=== PATIENT | female | born 1935 | race Caucasian/White ===

== ENCOUNTER 2016-10-01 13:19 | Inpatient (IN) | payer MEDICARE, OTHER ==
[~2016-10-01] VITALS: Ht 157.5 cm; Wt 55.3 kg
[2016-10-01 09:00] VITALS: BP 113/74
--- NOTE | 2016-10-01 13:30 | NUR ---
PATIENT ADMITTED TO [facility] UNDER THE SERVICES OF DR. TELLEZ. PATIENT LIVES WITH HER DAUGHTER AND APPARENTLY SHE HAS BECOME GRANDIOSE IN MARCIA DELUSIONS RELATED TO HER MANIC EPISODE OF BIPOLAR. PATIENT IS HYPERVERBAL ON ASSESSMENT, CURSING AND TELLING ME BITS OF HER LIFE. SHE HAS MENTIONED FLYING ON A SPACE SHIP AND TRAVELLING RECENTLY AND SHE SAYS "I DON'T KNOW HOW TO DRIVE IT, BUT I DO IT" PATIENT ALSO MENTIONS SEEING A MONKEY AND THAT IT IS UP IN THE TREE. DAUGHTER SAYS SHE IS MOSTLY ORIENTED TO HERSELF ONLY. PATIENT HAS HAD BILATERAL HIP REPLACEMENTS AND SHE IS AFRAID TO STAND AND AMBULATE, SHE DOES STAND AND TRANSFER WITH ASSIST, OTHERWISE SHE IS IN A W/C AND AT TIMES CAN SELF PROPEL, BUT DAUGHTER SAYS SHE USUALLY DOES NOT. SHE HAS A HX OF P.E., PATIENT HAS EDEMA TO BILATERAL FEET AND ANKLES AND THEY ARE A PINKISH PURPLE COLOR, SHE HAS A HX OF COPD AND SHE WEARS OXYGEN SOMETIMES IF SHE WILL KEEP IT ON, ON ADMISSION SPO2 IS 88%, DID LET RT KNOW AND THEY BROUGHT HER OXYGEN, SHE IS ON 2 L/M PER N/C. PATIENT IS INCONTINENT AT NIGHT ALL THE TIME, BUT DURING THE DAY SHE WILL ASK FOR ASSIST TO GO TO THE BATHROOM, SHE HAS A SKIN TEAR TO LEFT FOREARM AND THREE BRUISES/RED CHENEY ON HER RIGHT FOREARM. PATIENT HAS HER OWN W/C, SHE HAS UPPER AND LOWER DENTURES THAT DAUGHTER SAYS SHE HAS DIFFICULTY WITH WHEN SHE EATS MEATS, SHE IS WEARING GLASSES. SHE HAD A RING, NECKLACE AND EARRINGS THAT DAUGHTER TOOK HOME WITH HER WELL A SUITCASE AND SMALL OVERNIGHT CASE.
[2016-10-01 13:54] VITALS: BP 125/78; BMI 22.4
--- NOTE | 2016-10-01 14:00 | NUR ---
ON ASSESSMENT DID NOTE PATIENT HAS SMALL BLISTERS IN THE CORNER OF THE LEFT SIDE OF HER MOUTH. ALSO ON ASSESSMENT DAUGHTER SAID PATIENT WAS PUT ON CARBA DOPA WHEN SHE WAS ON DEPAKOTE BECAUSE SHE HAD TREMORS, BUT THAT SHE DOES NOT HAVE PARKINSON'S.
[2016-10-01] MEDS ORDERED: LITHIUM CARBON150 MG PO (15:08)
[2016-10-01] MEDS ORDERED: ELIQUIS5 MG PO (15:08)
[2016-10-01] MEDS ORDERED: GLUCOTROL 5 MG T5 MG PO (15:09)
[2016-10-01] MEDS ORDERED: SINEMET 251 UDTAB.SA PO (15:09)
[2016-10-01] MEDS ORDERED: VALIUM 2 MG TAB2 MG PO (15:11)
[2016-10-01 15:41] LABS: BASOPHILS 0.1 % (0.0-2.0); EOSINOPHILS 0.3 % (0-7); HEMATOCRIT 53.1 % (36.0-48.0); HEMOGLOBIN 17.2 g/dL (12-16); IMMATURE GRANULOCYTES 0.4 % (0-5); LYMPHOCYTES 9.8 % (15-50); MCH 31.2 pg (26.0-34.0); MCHC 32.4 g/dL (31.0-37.0); MCV 96.4 fL (80.0-100.0); MEAN PLATELET VOLUME 11.3 fL (7.4-10.4); MONOCYTES 4.2 % (2-11); NEUTROPHILS 85.2 % (40-80); PLATELET COUNT 189 10x3/uL (130-400); RBC 5.51 10x6/uL (4.00-5.40); RDW 13.3 % (11.5-14.5); WBC 14.9 10x3/uL (4.8-10.8)
[2016-10-01 15:55] LABS: HEMOGLOBIN A1C 6.1 % (4.8-6.0)
[2016-10-01 16:08] LABS: ALBUMIN 3.8 g/dL (3.4-5.0); ANION GAP 11.5 mmol/L (8-16); BILIRUBIN - TOTAL 0.5 mg/dL (0.2-1.3); CALCIUM 9.5 mg/dL (8.5-10.1); CARBON DIOXIDE 28.7 mmol/L (21.0-32.0); CHOL - HDL RATIO 3.7 ratio (2.3-4.1); CREATININE - SERUM 0.8 mg/dL (0.6-1.3); LDL-HDL RATIO 2.1 ratio (1.5-3.5); POTASSIUM - SERUM 4.2 mmol/L (3.5-5.1); THYROID STIMULATING HORMONE 2.63 uIU/mL (0.36-3.74)
[2016-10-01 19:30] VITALS: BP 157/105
--- NOTE | 2016-10-02 02:52 | NUR ---
B) received sitting in a chair in the day room, alert and oriented to self, quiet and keeping to herself, calm and cooperative with staff, I) Administered perscribed medications, monitored for falls, R) Medication compliant, transfers with assist, P) Continue plan of care, continue to monitor.
[2016-10-02 07:30] VITALS: BP 135/85
--- NOTE | 2016-10-02 17:46 | NUR ---
ORIENTED TO PERSON AND PLACE. REORIENTED NEEDED BUT PT HAS DIFFICULTY RETAINING THE EDUCATION. NO EVIDENCE OF DELUSIONS NOTED. DENIES SI AND DEPRESSION. PT HAS BEEN CALM, COOPERATIVE WITH CARE. PT IS FEARFUL OF FALLING AND REASSURED PT THAT ALL FALL PRECAUTIONS ARE MAINTAINED. ADMINISTERED MEDICATIONS ORDERED AND PT IS COMPLIANT. NO AGGRESSION NOTED. WILL CONTINUE TO MONITOR AND CONTINUE WITH PLAN OF CARE.
[2016-10-02 19:30] VITALS: BP 120/84
--- NOTE | 2016-10-02 20:09 | NUR ---
RECEIVED IN DAYROOM. SETTING IN WHEELCHAIR ISOLATED FROM PEERS. O2 AT 2 L/M VIA NC. NO DELSIONAL STATEMENTS MADE THIS EVENING. CALM AND COOPERATIVE WITH CARE AND ASSESSMENT. ENCOURAGE TO ASK FOR ASSIST WHEN NEEDED. CONTINUES TO SET QUIETLY. CONTINUE PLAN OF CARE
[2016-10-03 11:40] VITALS: BP 138/78
--- NOTE | 2016-10-03 13:58 | PSY ---
PATIENT NAME:LALIT OROZCO MEDICAL RECORD: [id number] : 35 LOCATION:[facility] ADMISSION DATE: 10/01/16 ACCOUNT: [id number] PSYCHIATRIC EVALUATION DATE OF EVALUATION: 10/02/16 IDENTIFYING DATA: The patient is 81 years old and she is admitted to the hospital on a voluntary basis. CHIEF COMPLAINT: Nelia. HISTORY OF PRESENT ILLNESS: The patient has been living at home with her daughter. The patient has been hyperverbal and grandiose. She believes that spaceship are landing in her backyard and she has been going on trips with monkeys. She does have a history of mental illness. She claims that she is compliant with her medications. She is laughing and emotionally labile and inappropriate. PAST MEDICAL HISTORY: Significant for diabetes and COPD. PAST PSYCHIATRIC HISTORY: Significant for diagnosis of bipolar disorder for which the patient takes lithium. FAMILY HISTORY: Significant for heart disease and cancer, but not mental illness. ALLERGIES: MORPHINE AND LEVAQUIN. CURRENT MEDICINES: Include Eliquis, lithium, Glucotrol, Sinemet, and Valium. SOCIAL HISTORY: The patient is . She has no history of drug or alcohol abuse. She functioned reasonably well socially and occupationally despite her diagnosis. MENTAL STATUS EXAMINATION: The patient is awake, alert and oriented to person and place, but not to time or situation. Her mood is anxious. Her affect is constricted. Thought processes are circumstantial. Memory, concentration and abstraction abilities are moderately impaired and she denies any intent to harm herself or others as well as overt psychotic symptoms. ASSETS: Supportive family members. LIABILITIES: Limited insight. DIAGNOSTIC IMPRESSION: AXIS I: Bipolar disorder, mixed state. Senile dementia of the Alzheimer's type. AXIS II: None. AXIS III: Type 2 diabetes, history of pulmonary embolism, hyperlipidemia, chronic obstructive pulmonary disease and history of lung cancer. AXIS IV: Moderate stressors. AXIS V: Global assessment of functioning is 30. PLAN: At this time, the patient is admitted to the hospital for a comprehensive medical, psychological, and social evaluation. She will be treated with both mood stabilizing and memory enhancing medications. Her long-term prognosis is guarded. TRANSINT:[id number] Voice Confirmation ID: [id number] DOCUMENT ID: [id number] LAUREEN TELLEZ MD at 1358 CC: [id number] DICTATION DATE: 10/02/16 1253 REGISTERED PHLEBOTOMIST PART TIME: 10/02/[address] [facility] [address] [id number]
--- NOTE | 2016-10-03 18:03 | NUR ---
RECEIVED SITTING IN WHEELCHAIR IN HALLWAY AT NURSES STATION.IS ORIENTED TO PERSON AND HOSPITAL ONLY.REORIENTED TO TIME WITH POOR RESPONSE.IS MED COMPLIANT.ABLE TO TRANSFER WITH ASSIST OF ONE.NO AGGRESSION OR SIGNS OF HALLUCINATIONS.WILL CONTINUE WITH PLAN OF CARE,MONITOR FOR CHANGES AND SAFETY.
[2016-10-03 19:30] VITALS: BP 129/82
--- NOTE | 2016-10-04 00:52 | NUR ---
PATIENT IN DAYROOM IN RECLINER, ON OXYGEN AT 2L. PATIENT ISOLATING. ORIENTED TO PERSON AND PLACE. COOPERATIVE WITH MEDICATION, FOLLOWS DIRECTIONS. CALM AND PLEASANT. CONTINUE TO MONITOR CONTINUE PLAN OF CARE.
[2016-10-04 08:20] LABS: VITAMIN D 25 HYDROXY 8.6 ng/mL (30.0-100.0)
[2016-10-04 09:15] LABS: FOLATE (FOLIC ACID) - SERUM 7.5 ng/mL (>3.0)
--- NOTE | 2016-10-04 11:25 | NUR ---
Alert and oriented to name and place. Calm and cooperative with care. Refocus to reality versus nonreality for any delusions. Compliant with medications. No delusions assessed or verbalized, has been social with staff with reality based converstation. Participated in group with appropriate responses. Safety maintained. Continue plan of care.
[2016-10-04 12:16] LABS: RAPID PLASMA REAGIN Non Reactive (Non Reactive)
[2016-10-04 12:34] VITALS: Ht 157.5 cm; Wt 55.3 kg
--- NOTE | 2016-10-04 12:57 | PN ---
PATIENT:LALIT OROZCO MEDICAL RECORD: [id number] LOCATION:[facility] ADMISSION DATE: 10/01/16 PROGRESS NOTE DATE OF SERVICE: 10/03/2016 SUBJECTIVE: The patient's case was discussed with staff. She has no new complaint. OBJECTIVE: The patient is in good behavioral control with limited insight about her condition. She tolerates her medicines well. ASSESSMENT: No change in diagnoses. PLAN: Current medicines and therapies have been reviewed and will be maintained. Long-term prognosis is guarded. I am going to check another lithium level. The patient is much less hyperverbal and grandiose than when she was admitted. TRANSINT:[id number] Voice Confirmation ID: [id number] DOCUMENT ID: [id number] LAUREEN TELLEZ MD at 1257 CC: [id number] DICTATION DATE: 10/03/16 1418 HVAC TECHNICIAN: 10/03/16 2353 ADM IN [id number] [place] [address]
[2016-10-04 13:55] VITALS: BP 118/74
[2016-10-04 20:00] VITALS: BP 101/73
--- NOTE | 2016-10-04 20:47 | NUR ---
RECEIVED IN DAYROO. SETTING IN WHEELCHAIR WITH O2 @ 2L/M VIA NC. CALM AND COOPERATIVE WITH CARE AND ASSESSMENT. NO DELUSIONAL STATEMENTS MADE. ATTEMPTS TO STAND AT TIMES. REINFORCE FALLS SAFETY. CONTINUES TO SET QUIETLY. CONTINUE PLAN OF CARE
[2016-10-05 08:00] VITALS: BP 109/64
--- NOTE | 2016-10-05 08:40 | PN ---
PATIENT:LALIT OROZCO MEDICAL RECORD: [id number] LOCATION:[facility] ADMISSION DATE: 10/01/16 PROGRESS NOTE DATE OF SERVICE: 10/04/2016 Psychiatric Progress Note SUBJECTIVE: The patient's case was discussed with staff. She has no new complaint. OBJECTIVE: The patient is still making delusional statements. Her lithium is therapeutic and she does not look overtly manic. I have reduced her Valium some and we will treat her with a low dose of antipsychotic because of these delusions. TRANSINT:[id number] Voice Confirmation ID: [id number] DOCUMENT ID: [id number] LAUREEN TELLEZ MD at 0840 CC: [id number] DICTATION DATE: 10/04/16 1311 STAFF SOFTWARE ENGINEER: 10/04/16 2139 ADM IN [id number] [place] [address]
--- NOTE | 2016-10-05 11:08 | NUR ---
B) Patient is awake and alert, oriented x3, she is joking and having fun, she is not hyperverbal today, she is not saying anything today about monkeys or spaceships, but she is slurring her words. I) Provide prescribed meds and encourage groups. R) Patient is interacting with some peers, she is asking for different things, requesting we call her daughter for this and that. P) Continue plan of care.
[2016-10-05 19:57] VITALS: BP 120/57
--- NOTE | 2016-10-06 00:02 | NUR ---
B) Recieved sitting in the day room, alert and oriented to self and hospital, no ehaviorsnoted this shift, social with staff and peers, I) Administered perscribed medications, redirected as needed, oriented to time and hospital R) Medication compliant, friendly and plesant, cooperative with staff, P) Continue plan of care, continue to monitor.
[2016-10-06 08:00] VITALS: BP 136/79
--- NOTE | 2016-10-06 13:30 | NUR ---
B) Patient is awake and alert, she has not exhibited any behavior problems, she likes to joke and laugh. She has not mentioned any monkeys or anything about flying spaceships. She has not been hyperverbal. She does request milk all day long. She did walk with PT today, but did not do well. Patient can self propel in her w/c and she is on oxygen at 2 L/M per N/C, she takes it off and on, uses it prn, but she often will get a dark blue nose when she desats. I) Provide prescribed meds. R) Patient is compliant with meds. P) Continue plan of care.
--- NOTE | 2016-10-06 14:24 | PN ---
PATIENT:LALIT OROZCO MEDICAL RECORD: [id number] LOCATION:[facility] ADMISSION DATE: 10/01/16 PROGRESS NOTE DATE OF SERVICE: 10/05/2016 SUBJECTIVE: The patient's case was discussed with staff. She has no new complaint. OBJECTIVE: The patient denies intent to harm herself or others. She generally tolerates her medicines well. ASSESSMENT: No change in diagnoses. PLAN: Current medicines have been reviewed and will be maintained. Her long-term prognosis is guarded. TRANSINT:[id number] Voice Confirmation ID: [id number] DOCUMENT ID: [id number] LAUREEN TELLEZ MD at 1424 CC: [id number] DICTATION DATE: 10/05/16 1305 THERAPIST'S ASSISTANT: 10/05/16 1559 ADM IN [address] [address]
[2016-10-06] MEDS ORDERED: VALIUM 2 MG TAB2 MG PO (15:01)
[2016-10-06] MEDS ORDERED: VALTREX500 MG PO (15:01)
[2016-10-06] MEDS ORDERED: GEODON20 MG PO (15:01)
[2016-10-06 19:00] VITALS: BP 127/83
--- NOTE | 2016-10-07 03:16 | NUR ---
B) Recieved sitting in the day room watching the other patients, alert and oriented to self, and hospital, social when spoken to, cooperative [facility] staff, I) Administered perscribed medications, redirected as needed, R) Medication compliant, calm and pleasant, P) Continue plan of care, continue to monitor.
--- NOTE | 2016-10-07 07:20 | NUR ---
(B)RECEIVED PATIENT SITTING IN A CHAIR AT THE NURSE'S STATION. ORIENTED TO SELF AND PLACE RELATING "I'M IN THE HOSPITAL. I KNOW WHERE I'M AT." DELUSIONAL AEB "I CAME HERE FOR THIS TRIP I'M ON. I'M BACK FROM MY TRIP TO [employer] AND [employer]." PATIENT ASK NURSE "HAVE YOU EVER WORKED AT A [employer] F[employer] LIKE THIS ONE? YAY I'M GLAD SOALIYAH KNOWS WHAT IS GOING ON. I'M BIPOLAR. I'VE HAD ALOT OF FUN. I WAS FLYING A [employer]. 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 ME AND MY DAUGHTER GRADUATED AT THE SAME TIME. "I HAD A PAIR OF SCISSORS LIKE THAT IN THE WAR." FLIGHT OF IDEAS AEB JUMPING FROM TOPIC TO TOPIC. (I)ADMINISTER MEDS AND MONITOR COMPLIANCE, REFOCUS WITH REALITY BASED INFORMATION. (R)MED COMPLIANT. POOR REDIRECTION DUE TO INABILITY TO SEPARATE FANTASY FROM REALITY. (P)CONTINUE POC AND MAINTAIN FALL PRECAUTIONS.
[2016-10-07 08:00] VITALS: BP 108/58
--- NOTE | 2016-10-07 11:40 | NUR ---
FAXED ORDERS AND MEDS TO DR. HOGAN AND MARIE AT HOME, CALLED MEDICATIONS IN TO [facility] IN [place].
--- NOTE | 2016-10-07 13:15 | NUR ---
PATIENT DISCHARGED HOME WITH DAUGHTER PER PRIVATE VEHICLE. PERSONAL BELONGINGS RETURNED TO PATIENT. PATIENT WAS TEARFUL, APPEARING HELPLESS AND WOULD NOT FOLLOW INSTRUCTIONS. DID GET PATIENT TO CAR AND ASSISTED WITH TRANSFER TO CAR. PRESCRIPTIONS CALLED INTO THE PHARMACY OF PATIENT'S CHOICE. CONDITION STABLE AT TIME OF DISCHARGE.
--- NOTE | 2016-10-09 06:10 | PN ---
PATIENT:LALIT OROZCO MEDICAL RECORD: [id number] LOCATION:[facility] ADMISSION DATE: 10/01/16 PROGRESS NOTE DATE OF SERVICE: 10/07/2016 SUBJECTIVE: No new complaint. OBJECTIVE: The patient is scheduled for discharge later today. She is in stable condition. Her daughter will be coming to pick her up. On exam, mood is euthymic. Affect is rather shallow. Speech is somewhat tangential. Content of thought is negative for overt psychosis. Sensorium shows no change. ASSESSMENT: No change in diagnosis. PLAN: The patient is scheduled for discharge this afternoon. TRANSINT:[id number] Voice Confirmation ID: [id number] DOCUMENT ID: [id number] KATHLEEN HERNANDEZ III, MD at 0610 CC: [id number] DICTATION DATE: 10/07/16 1157 EDGE MOLDER: 10/07/16 1742 DIS IN 10/07/16 [facility] [address] [place] [address]
--- NOTE | 2016-10-10 14:11 | PN ---
PATIENT:LALIT OROZCO MEDICAL RECORD: [id number] LOCATION:[facility] ADMISSION DATE: 10/01/16 PROGRESS NOTE DATE OF SERVICE: 10/06/2016 SUBJECTIVE: The patient's case was discussed with staff. She has no new complaint. OBJECTIVE: The patient is in good behavioral control with limited insight about her condition. She has significant cognitive impairment, but no overt aggression. There have been some modifications made to her medications including discontinuing the homeopathic dose of Sinemet that she was taking. There is no evidence of Parkinson disease and I suspect it may have been causing some of the psychotic symptoms. ASSESSMENT: No change in diagnoses. PLAN: The patient will be transitioned out of the hospital in the morning. I think her long-term prognosis is guarded. TRANSINT:[id number] Voice Confirmation ID: [id number] DOCUMENT ID: [id number] LAUREEN TELLEZ MD at 1411 CC: [id number] DICTATION DATE: 10/06/16 1525 TRIPLE VALVE MECHANIC: 10/06/16 1543 DIS IN 10/07/16 [facility] [address] [place] [address]
--- NOTE | 2016-10-14 13:42 | DS ---
PATIENT:LALIT OROZCO :35 MEDICAL RECORD: [id number] DISCHARGE SUMMARY ADMISSION DATE: 10/01/16 DISCHARGE DATE: 10/07/16 IDENTIFYING DATA: The patient is 81 years old and she is admitted to the hospital on a voluntary basis secondary to katarzyna. The patient has been living at home with her daughter and had been hyperverbal and grandiose. She believes that a spaceship had landed in her backyard and that she had been going on trips with flying monkeys. She does have a history of mental illness. She claims she has been taking her medications. She has been laughing and emotionally labile. HOSPITAL COURSE: The patient was admitted to the hospital and fully evaluated from both the medical, psychological, and social standpoint. She was found to have a diagnosis of bipolar disorder along with dementia. She was treated with memory enhancing and mood stabilizing medications and did show improvement. She was subsequently transitioned out of the hospital and at that time was no longer delusional. DISCHARGE DIAGNOSES: AXIS I: Bipolar disorder, mixed state. Senile dementia of the Alzheimer's type. AXIS II: None. AXIS III: Diabetes type 2, history of pulmonary embolism, hyperlipidemia, chronic obstructive pulmonary disease and history of lung cancer. AXIS IV: Moderate stressors. AXIS V: Global assessment of functioning is 35. PLAN: At the time of discharge, the patient was in good behavioral control. She had no evidence of acute or direct dangerousness to herself or others. She was tolerating her medications well. She is to have follow up with her primary care physician and outpatient psychiatrist. TRANSINT:[id number] Voice Confirmation ID: [id number] DOCUMENT ID: [id number] LAUREEN TELLEZ MD at 1342 CC: [id number] DICTATION DATE: 10/13/16 1241 HEAD OF STOCK: 10/14/16 0742 DIS IN 10/07/16 [id number] [place] [address]
== END 2016-10-07 13:15 | disposition home health service (06) | DRG 885 ==
LOC: D.PSYCH 13:19
PROVIDERS: ADMIT Psychiatry & Neurology Psychiatry
DX: F31.60 Bipolar disorder, current episode mixed, unspecified (principal); G30.1 Alzheimer's disease with late onset; F02.80 Dementia in other diseases classified elsewhere, unspecified severity, without behavioral disturbance, psychotic disturbance, mood disturbance, and anxiety; E11.9 Type 2 diabetes mellitus without complications; Z86.711 Personal history of pulmonary embolism; E78.5 Hyperlipidemia, unspecified; J44.9 Chronic obstructive pulmonary disease, unspecified; Z85.118 Personal history of other malignant neoplasm of bronchus and lung; Z74.09 Other reduced mobility; Z72.0 Tobacco use

== ENCOUNTER 2017-01-07 13:20 | Inpatient (IN) | payer MEDICARE, OTHER ==
[~2017-01-07] VITALS: Ht 157.5 cm; Wt 58.0 kg
[~2017-01-07 13:20] MED LIST: ELIQUIS5 MG PO; GEODON20 MG PO; GLUCOTROL 5 MG T5 MG PO; LITHIUM CARBON150 MG PO; SINEMET 251 UDTAB.SA PO; VALIUM 2 MG TAB2 MG PO; VALTREX500 MG PO
[2017-01-07 13:54] LABS: BASOPHILS 0.1 % (0-2); EOSINOPHILS 0.6 % (0-7); HEMATOCRIT 51.2 % (36.0-48.0); HEMOGLOBIN 16.9 g/dL (12-16); IMMATURE GRANULOCYTES 0.3 % (0-5); LYMPHOCYTES 9.1 % (15-50); MCH 31.2 pg (26.0-34.0); MCV 94.5 fL (80.0-100.0); MEAN PLATELET VOLUME 10.3 fL (7.4-10.4); MONOCYTES 8.5 % (2-11); NEUTROPHILS 81.4 % (40-80); PLATELET COUNT 189 10x3/uL (130-400); RBC 5.42 10x6/uL (4.00-5.40); RDW 13.3 % (11.5-14.5)
[2017-01-07 14:03] LABS: INR 2.13 (0.85-1.17); PROTIME 23.9 SECONDS (11.6-15.0)
[2017-01-07 14:05] LABS: APTT 118.5 SECONDS (22.8-39.4)
[2017-01-07 14:20] LABS: ALBUMIN 3.6 g/dL (3.4-5.0); ANION GAP 5.2 mmol/L (8-16); BILIRUBIN - TOTAL 0.8 mg/dL (0.2-1.3); CALCIUM 10.3 mg/dL (8.5-10.1); CARBON DIOXIDE 37.9 mmol/L (21.0-32.0); POTASSIUM - SERUM 3.1 mmol/L (3.5-5.1); PROTEIN - SERUM 7.3 g/dL (6.4-8.2)
[2017-01-07 14:22] LABS: TROPONIN-I 0.036 ng/mL (0.000-0.060)
[2017-01-07 14:57] LABS: UDS - AMPHET NEGATIVE QUAL (NEGATIVE); UDS - BARB NEGATIVE QUAL (NEGATIVE); UDS - BENZO POSITIVE QUAL (NEGATIVE); UDS - COCAINE NEGATIVE QUAL (NEGATIVE); UDS - METH NEGATIVE QUAL (NEGATIVE); UDS - OPIATE NEGATIVE QUAL (NEGATIVE); UDS - PCP NEGATIVE QUAL (NEGATIVE); UDS - THC NEGATIVE QUAL (NEGATIVE)
[2017-01-07 14:59] LABS: APPEARANCE CLOUDY (CLEAR); BILIRUBIN NEGATIVE (NEGATIVE); COLOR YELLOW (YELLOW); GLUCOSE NEGATIVE (NEGATIVE); KETONE NEGATIVE (NEGATIVE); LEUKOCYTE ESTERASE 1+ (NEGATIVE); NITRITE NEGATIVE (NEGATIVE); PROTEIN TRACE mg/dL (NEGATIVE); SPECIFIC GRAVITY 1.005 (1.005-1.020); UROBILINOGEN NORMAL (NORMAL)
[2017-01-07 15:00] LABS: BACTERIA MANY /hpf (NONE SEEN); EPITHELIAL CELLS 0-5 /hpf (0-5); RED CELLS - URINE 0-5 /hpf (0-5); WHITE CELLS - URINE 0-5 /hpf (0-5)
--- NOTE | 2017-01-07 17:11 | NUR ---
TRANSFER FROM ER BY STRETCHER. CALL LIGHT IN REACH. WILL CONT. PLAN OF CARE.
--- NOTE | 2017-01-07 17:20 | NUR ---
RECIVED FROM ER PER BED. ADMIT ASSESSMENT PER RN
[2017-01-07] MEDS ORDERED: JANUVIA50 MG PO (17:22)
[2017-01-07] MEDS ORDERED: VALIUM 2 MG TAB2 MG PO (17:24)
[2017-01-07 18:06] VITALS: BP 97/43; BMI 22.0
[2017-01-07 19:00] VITALS: BP 140/68
--- NOTE | 2017-01-07 19:36 | NUR ---
ASSESSMENT COMPLETE, PT IN BED RESTING, LETHARGIC, AROUSES TO TO VERBAL STIMULI. IV TO LEF AC WITH NS WITH 20 K INFUSING AT 75, SITE CLEAN AND DRY. VISITOR AT BED SIDE, BED LOW, CL IN REACH.
--- NOTE | 2017-01-07 20:58 | NUR ---
POTASSIUM RIDER GIVEN PER PROTOCOL. PT DENEIS NEEDS, BED LOW, CL IN REACH.
[2017-01-08] VITALS (7 sets, daily range): BP systolic 85–125; BP diastolic 42–54
--- NOTE | 2017-01-08 00:44 | NUR ---
THREAD WEAVER AT BED SIDE, BATH AND LINEN CHANGE COMPLETE. REPOSITIONED IN BED FOR COMFORT.
--- NOTE | 2017-01-08 03:56 | NUR ---
RESTING WITH EYES CLOSED, RESPERATIONS EVEN, NO S/S DISTRESS NOTED.
[2017-01-08 06:59] LABS: BASOPHILS 0.1 % (0-2); EOSINOPHILS 0.9 % (0-7); HEMATOCRIT 46.9 % (36.0-48.0); HEMOGLOBIN 15.3 g/dL (12-16); IMMATURE GRANULOCYTES 0.5 % (0-5); LYMPHOCYTES 10.7 % (15-50); MCH 31.3 pg (26.0-34.0); MCHC 32.6 g/dL (31.0-37.0); MCV 95.9 fL (80.0-100.0); MEAN PLATELET VOLUME 10.5 fL (7.4-10.4); MONOCYTES 8.8 % (2-11); PLATELET COUNT 201 10x3/uL (130-400); RBC 4.89 10x6/uL (4.00-5.40); RDW 13.6 % (11.5-14.5); WBC 9.6 10x3/uL (4.8-10.8)
[2017-01-08 07:12] LABS: INR 1.37 (0.85-1.17); PROTIME 16.8 SECONDS (11.6-15.0)
[2017-01-08 07:28] LABS: ALBUMIN 3.2 g/dL (3.4-5.0); ANION GAP 7.5 mmol/L (8-16); BILIRUBIN - TOTAL 0.74 mg/dL (0.2-1.3); CALCIUM 9.5 mg/dL (8.5-10.1); CREATININE - SERUM 0.9 mg/dL (0.6-1.3); PHOSPHOROUS 3.4 mg/dL (2.5-4.9); PROTEIN - SERUM 6.4 g/dL (6.4-8.2)
[2017-01-08 07:32] LABS: MAGNESIUM - SERUM 2.3 mg/dL (1.8-2.4); POTASSIUM - SERUM 4.5 mmol/L (3.5-5.1)
--- NOTE | 2017-01-08 10:30 | NUR ---
FABIAN WITH SPEECH THERAPY AT BEDSIDE TO DO SWALLOW EVAL. FAMILY AT BEDSIDE, NAD NOTED, WILL CONTINUE TO MONITOR.
--- NOTE | 2017-01-08 12:03 | NUR ---
HOSPITAL SALES REPRESENTATIVE AND I PROVIDED INCONT CARE TO PT. PT DENIES ANY NEEDS AT THIS TIME, CALL LIGHT IN REACH, FAMILY AT BEDSIDE, NAD NOTED, WILL CONTINUE TO MONITOR.
--- NOTE | 2017-01-08 17:07 | NUR ---
HAND SPRING FORMER AT BEDSIDE HELPING PT EAT DINNER. NAD NOTED, CALL LIGHT IN REACH , WILL CONTINUE TO MONITOR.
--- NOTE | 2017-01-08 19:33 | NUR ---
RECEIVED IN BEDROOM. RESTING WITH EYES CLOSED. NO SIGNS OF DISTRESS. IV INFUSING. CALL LIGHT IN REACH
--- NOTE | 2017-01-09 00:52 | NUR ---
RESTING IN BED WITH EYES CLOSED. IV INFUSING. NO SIGNS OF DISTRESS. CALL LIGHT IN REACH.
[2017-01-09 04:24] VITALS: BP 144/54
[2017-01-09 06:18] LABS: BASOPHILS 0.1 % (0-2); EOSINOPHILS 0.9 % (0-7); HEMATOCRIT 45.3 % (36.0-48.0); HEMOGLOBIN 14.4 g/dL (12-16); IMMATURE GRANULOCYTES 0.4 % (0-5); MCH 30.6 pg (26.0-34.0); MCHC 31.8 g/dL (31.0-37.0); MCV 96.4 fL (80.0-100.0); MEAN PLATELET VOLUME 10.5 fL (7.4-10.4); MONOCYTES 7.3 % (2-11); NEUTROPHILS 82.3 % (40-80); PLATELET COUNT 185 10x3/uL (130-400); RDW 13.4 % (11.5-14.5); WBC 10.3 10x3/uL (4.8-10.8)
[2017-01-09 06:34] LABS: INR 1.55 (0.85-1.17); PROTIME 18.5 SECONDS (11.6-15.0)
[2017-01-09 06:56] LABS: CALC OSMOLALITY 263 mosm/kg (275-300); CALCIUM 8.7 mg/dL (8.5-10.1); CARBON DIOXIDE 27.6 mmol/L (21.0-32.0); CHLORIDE - SERUM 94 mmol/L (98-107); CREATININE - SERUM 0.7 mg/dL (0.6-1.3); GLUCOSE 177 mg/dL (74-106); POTASSIUM - SERUM 4.2 mmol/L (3.5-5.1); SODIUM 128 mmol/L (136-145); UREA NITROGEN 20 mg/dL (7-18); eGFR NON AFRICAN AMERICAN 85 mL/min (90-120)
--- NOTE | 2017-01-09 07:32 | NUR ---
AM ROUNDING- RECEIVED REPORT FROM MAP PLOTTER NURSE GAMALIEL. PT IS CURRENTLY LAYING IN BED ON BACK WITH EYES OPEN MUMBLING SOUNDS. PT COULD TELL ME HER NAME BUT COULD NOT TELL ME WHERE SHE IS. IV SEEN TO LEFT THAT HAS NS WITH 20K+ RUNNING AT 75CC. ON 02 AT 2L VIA PA. NO MONITOR. NO NEED AT CURRENT TIME. WILL CONTINUE TO MONITOR AND CONTINUE WITH PLAN OF CARE.
[2017-01-09 08:09] VITALS: BP 158/62
[2017-01-09 09:12] VITALS: Ht 157.5 cm; Wt 58.0 kg
--- NOTE | 2017-01-09 09:12 | NUR ---
Rehab Note- Acute Rehab Prescreen order received. The patient needs a Physical Therapy eval to see function mobility for Acute rehab. Will follow the patient at this time. Thank you for this referral! Rose Nunez RN Clinical Liaison , [facility] Rehab/Indu
--- NOTE | 2017-01-09 11:24 | NUR ---
LINCOLN YODER CAME TO INFORM ME THAT PTS HR IS 46. PLACED PT ON HEART MONITOR SHOWING SB, HR 46 WITH BBB. RELAYED THIS INFORMATION TO HAILEY LANDRY NP WHO IS ON UNIT NOW. WILL CONTINUE TO MONITOR.
[2017-01-09 11:38] VITALS: BP 116/47
--- NOTE | 2017-01-09 15:29 | NUR ---
HOME CAREGIVER IS AT BEDSIDE. INFORMED HER IF SHE NEEDS ANYTHING TO LET STAFF KNOW. PT IS LAYING IN BED ON BACK WITH EYES CLOSED MUMBLING. WILL CONTINUE TO MONITOR.
[2017-01-09 15:55] VITALS: BP 114/46
--- NOTE | 2017-01-09 17:56 | NUR ---
PT IS CURRENTLY SITTING UP IN BED WITH EYES CLOSED RESTING. CAREGIVER AT BEDSIDE. ENCOURAGED PT TO WAKE UP SO CAREGIVER CAN FEET PT. PT IS OPENING EYES. NO NEED AT CURRENT TIME. INSTRUCTED CAREGIVER TO NOTIFY STAFF MEMBERS IF NEEDING ASSISTANCE WITH PT. WILL CONTINUE TO MONITOR.
--- NOTE | 2017-01-09 19:31 | NUR ---
SHIFT ASSESSMENT COMPLETE PATIENT IS CONFUSED AND SPEECH IS [employer] OF THOUGHT. REORIENTED TO PLACE AND TIME TELEMETRY READING OF SB RATE 59.LUNG SOUNDS ARE DIMINISHED WITH O2 AT 2 LITERS. IV TO THE L/AC IS RED AND SWOLLEN WITH NS AND 20 KCL INFUSING ON PUMP AT 75 WILL CHANGE SITE. HEELS UP ON PILLOW WITH BLISTER TO R/HEEL NOTED CAREGIVER AT BEDSIDE
--- NOTE | 2017-01-09 19:45 | NUR ---
20 GA TO THE LEFT WRIST WITH DRESSING APPLIED. NS AND 20 KCL INFUSING ON PUMP AT 75 CC/HR. ORAL MEDICATION GIVEN WITH SIPS OF WATER. CAREGIVER AT BEDSIDE
[2017-01-09 19:46] VITALS: BP 129/51
--- NOTE | 2017-01-09 23:22 | NUR ---
RESTING QUIETLY WITH NO DISTRESS NOTED CALL LIGHT IN REACH
[2017-01-09 23:38] VITALS: BP 125/62
--- NOTE | 2017-01-10 02:39 | NUR ---
IV FLUIDS CONTINUE TO INFUSE TO IV IN THE LEFT WRIST PATIENT SLEEPING WITH NO DISTRESS NOTED.
[2017-01-10 03:48] VITALS: BP 123/52
[2017-01-10] MEDS ORDERED: GLUCOTROL 5 MG T5 MG PO (06:26)
[2017-01-10] MEDS ORDERED: ACTOS45 MG PO (06:27)
[2017-01-10] MEDS ORDERED: DITROPAN X5 MG/BOTTL PO (06:27)
[2017-01-10] MEDS ORDERED: METOLAZONE5 MG PO (06:27)
[2017-01-10] MEDS ORDERED: FUROSEMIDE20 MG PO (06:28)
--- NOTE | 2017-01-10 07:24 | NUR ---
AM ROUNDS- PT IN BED, SLEEPING, BED ALARM ON, CALL LIGHT IN REACH, NAD NOTED, WILL CONTINUE TO MONITOR.
[2017-01-10 07:42] VITALS: BP 142/73
--- NOTE | 2017-01-10 08:08 | NUR ---
ADMINISTERED AM MEDS. NO TROUBLE SWALLOWING. PT IN BED, REFUSES TO EAT BREAKFAST. MERCHANDISE PLANNER TRIED FEEDING HER AND THEN I TRIED TOO. BUT PT JUST SPITS FOOD OUT. HAD A FEW SIPS OF BOOST AND MILK. CONFUSED, BED ALARM ON AT THI TIME. PT DENIES ANY NEEDS, CALL LIGHT IN REACH, NAD NOTED, WILL CONTINUE TO MONITOR.
--- NOTE | 2017-01-10 09:40 | NUR ---
PT GIVEN A BED BATH AT THIS TIME. LINEN CHANGED. PT CRYING STATING SHE WANTS TO GO WALK OUTSIDE. PT UNBALE TO AMBULATE. PT DENIES ANY NEEDS AT THIS TIME. BED ALARM ON, CALL LIGHT IN REACH, NAD NOTED, WILL CONTINUE TO MONITOR.
[2017-01-10 12:05] VITALS: BP 127/52
--- NOTE | 2017-01-10 13:48 | NUR ---
IVBP OF ROCEPHIN HUNG AT THIS TIME, PT IN BED, WITH EYES CLOSED, NAD NOTED, FAMILY AT BEDSIDE, CALL LIGHT IN REACH, WILL CONTINUE TO MONITOR.
--- NOTE | 2017-01-10 14:00 | NUR ---
Late Entry- 01/10/17 @1400 Rehab Note- Nurse & BOOMSWING OPERATOR in patient's room. Appempted interview with the patient, the patient keeps her eyes closed and just moans out. Nurse stated that's all the patient has done during her care. The patient is unable to participate in the required 3hrs/day of therapy for acute rehab stay. Thank you for this referral! Rose Nunez RN Clinical Liaison, [facility] Rehab/Indu
[2017-01-10 14:56] LABS: CALC OSMOLALITY 259 mosm/kg (275-300); CALCIUM 8.6 mg/dL (8.5-10.1); CARBON DIOXIDE 27.9 mmol/L (21.0-32.0); CHLORIDE - SERUM 95 mmol/L (98-107); CREATININE - SERUM 0.6 mg/dL (0.6-1.3); GLUCOSE 169 mg/dL (74-106); POTASSIUM - SERUM 4.6 mmol/L (3.5-5.1); SODIUM 128 mmol/L (136-145); eGFR NON AFRICAN AMERICAN > 90 mL/min (90-120)
[2017-01-10 14:58] LABS: UREA NITROGEN 10 mg/dL (7-18)
[2017-01-10 15:40] VITALS: BP 140/68
[2017-01-10 15:49] LABS: BASOPHILS 0.1 % (0-2); EOSINOPHILS 1.3 % (0-7); HEMATOCRIT 43.4 % (36.0-48.0); HEMOGLOBIN 13.7 g/dL (12-16); IMMATURE GRANULOCYTES 0.1 % (0-5); LYMPHOCYTES 11.2 % (15-50); MCH 30.6 pg (26.0-34.0); MCHC 31.6 g/dL (31.0-37.0); MCV 97.1 fL (80.0-100.0); MEAN PLATELET VOLUME 10.7 fL (7.4-10.4); MONOCYTES 7.2 % (2-11); NEUTROPHILS 80.1 % (40-80); PLATELET COUNT 150 10x3/uL (130-400); RBC 4.47 10x6/uL (4.00-5.40); RDW 13.5 % (11.5-14.5); WBC 9.3 10x3/uL (4.8-10.8)
--- NOTE | 2017-01-10 19:57 | NUR ---
ASSESSMENT COMPLETE, PT LETHARGIC, AROUSES TO VERBAL STIMULI. RESPERATIONS EVEN, 02 AT 2 LITER VIA NC. IV TO LEFT FOREARM WITH NS WITH 20 K INFUSING AT 100 CC/HRS. SITE CLEAN AND DRY. SITTER AT BED SIDE, BED LOW, CL IN REACH.
[2017-01-10 20:12] VITALS: BP 113/50
--- NOTE | 2017-01-10 21:05 | NUR ---
HS MEDS GIVEN WITH FRESH ICE WATER, PT DENIES NEEDS.
[2017-01-10 23:40] VITALS: BP 128/58
--- NOTE | 2017-01-10 23:49 | NUR ---
ROTOR PLATE WASHER AT BED SIDE, DRINK OF COKE GIVEN AT PT REQUEST.
--- NOTE | 2017-01-11 01:28 | NUR ---
RESTING WITH EYES CLOSED, RESPERATIONS EVEN, NO S/S DISTRESS NOTED.
[2017-01-11 03:31] VITALS: BP 139/69
--- NOTE | 2017-01-11 04:02 | NUR ---
SPORTS MEDICINE SPECIALIST AT BEDSIDE FOR VS. NEEDS ADDRESSED AT THIS TIME. CALL LIGHT IN REACH. WILL CONT TO MONITOR.
--- NOTE | 2017-01-11 04:36 | NUR ---
PT INCONTINENT OF BOWEL AND BLADDER, PARI MUTUEL TICKET CASHIER AT BED SIDE, BATH AND LINEN CHANGE COMPLETE.
[2017-01-11 06:16] LABS: BASOPHILS 0.1 % (0-2); EOSINOPHILS 1.2 % (0-7); HEMATOCRIT 45.6 % (36.0-48.0); HEMOGLOBIN 14.5 g/dL (12-16); IMMATURE GRANULOCYTES 0.2 % (0-5); LYMPHOCYTES 15.3 % (15-50); MCH 30.5 pg (26.0-34.0); MCHC 31.8 g/dL (31.0-37.0); MEAN PLATELET VOLUME 10.7 fL (7.4-10.4); MONOCYTES 7.1 % (2-11); NEUTROPHILS 76.1 % (40-80); PLATELET COUNT 175 10x3/uL (130-400); RBC 4.75 10x6/uL (4.00-5.40); RDW 13.7 % (11.5-14.5); WBC 8.2 10x3/uL (4.8-10.8)
[2017-01-11 06:28] LABS: CALC OSMOLALITY 259 mosm/kg (275-300); CALCIUM 9.1 mg/dL (8.5-10.1); CARBON DIOXIDE 30.8 mmol/L (21.0-32.0); CHLORIDE - SERUM 97 mmol/L (98-107); CREATININE - SERUM 0.5 mg/dL (0.6-1.3); POTASSIUM - SERUM 4.3 mmol/L (3.5-5.1); SODIUM 130 mmol/L (136-145); UREA NITROGEN 8 mg/dL (7-18); eGFR NON AFRICAN AMERICAN > 90 mL/min (90-120)
[2017-01-11 06:34] LABS: GLUCOSE 118 mg/dL (74-106)
--- NOTE | 2017-01-11 07:15 | NUR ---
AM ROUNDS- PT IN BED, SLEEPING. NAD NOTED, BED ALARM ON, CALL LIGHT IN REACH, NO FAMILY AT BEDSIDE, WILL CONTINUE TO MONITOR.
[2017-01-11 08:31] VITALS: BP 117/76
--- NOTE | 2017-01-11 10:20 | CN ---
PATIENT NAME:LALIT OROZCO MEDICAL RECORD: [id number] : 35 LOCATION:DNat D.2131 ADMIT DATE: 01/07/17 ACCOUNT: [id number] CONSULTING PHYSICIAN: KATHLEEN HERNANDEZ III, MD REFERRING PHYSICIAN: EMANI DOLL MD DATE OF CONSULTATION: 01/10/2017 FINDINGS: This is an 81-year-old white female with a past history of Alzheimer dementia and bipolar disorder. The patient is well known to psychiatry. She was recently admitted on the geriatric psychiatry unit. At that time, she was placed on Geodon and lithium for control of her agitation and mood swings. She had been exhibiting grandiose delusional ideation as well as paranoid delusional ideation. The patient is readmitted now after having been lethargic over the last several days. At the time of admission, the patient was lithium toxic with a level of 1.85. The patient's daughter is very concerned about the use of Geodon as well as she thinks that this had been overly sedating. The patient's blood level of lithium this morning was around 1.4, but still obviously within the toxic range. The patient continues to exhibit lassitude and bradycardia. The patient's daughter was interviewed and the patient herself was examined. At the present time, the patient is oriented only to person and the fact that she is hospitalized. She remains quite confused. DIAGNOSTIC IMPRESSION: AXIS I: Bipolar disorder by history, Alzheimer dementia, lithium toxicity. RECOMMENDATIONS: 1. For the near future, I would recommend the use of Ativan or similar medication on a p.r.n. basis for control of agitation. 2. Once the patient is cleared medically, consider using a milder antipsychotic such as Trilafon for control of mood swings and agitation and dosage range could be in the range of 2 mg two or three times a day. 3. We will be glad to follow with you. TRANSINT:[id number] Voice Confirmation ID: [id number] DOCUMENT ID: [id number] KATHLEEN HERNANDEZ III, MD at 1020 CC: [id number] DICTATION DATE: 01/10/17 1217 MONTESSORI TODDLER TEACHER: 01/10/17 1455 ADM IN [place] [id number] [place] [address]
--- NOTE | 2017-01-11 11:25 | NUR ---
PT UP TO CHAIR, STATES "I WANT TO GO BACK TO BE". INFOMED PT THAT SHE NEEDS TO BE UP TO CHAIR, UNTIL AFTER LUNCH, BECAUSE SINCE SHE'S BEEN HERE SHE HAS NOT GOTTEN OUT OF BED. PT DENIES ANY OTHER NEEDS AT THIS TIME. CALL LIGHT IN REACH, NAD NOTED, WILL CONTINUE TO MONITOR.
[2017-01-11 12:29] VITALS: BP 104/44
--- NOTE | 2017-01-11 13:42 | NUR ---
IVPB ROCEPHIN HUNG AT THIS TIME. PT IN BED, WITH EYES CLOSED, NAD NOTED, CALL LIGHT IN REACH, BED ALARM ON, NO FAMILY AT BEDSIDE, WILL CONTINUE TO MONITOR.
--- NOTE | 2017-01-11 14:45 | NUR ---
WOUND CARE CONSULT: RIGHT HEEL HAS INTACT HEALING BLISTER. IT MEASURES 4CM X 2CM. THERE IS NO DRAINAGE, ODOR, REDNESS OR EDEMA. APPLIED SKIN PROTECTANT TO BILATERAL HEELS. WILL NEED TO KEEP HEELS BRIDGED. WOUND CARE WILL MONITOR.
[2017-01-11 15:45] VITALS: BP 120/49
--- NOTE | 2017-01-11 16:12 | NUR ---
Patient Name: LALIT OORZCO Admission Status: ER Accout number: [id number] Admission Date: 01-07-2017 : 1935 Admission Diagnosis:ALTERED MENTAL STATUS, UNSPECIFIED Attending: SHARMILA Current LOS: 4 Anticipated DC Date: Planned Disposition: Inpatient Rehab Primary Insurance: MEDICARE A & B PLANNED EXTERNAL PROVIDER: [facility] INPATIENT [facility] Discharge Planning Comments: * Is the patient Alert and Oriented? Yes 0 * How many steps to enter\\exit or inside your home? RAMPS 0 * PCP DR. HOGAN 0 * Pharmacy [facility] 0 * Preadmission Environment Home with Family 0 * ADLs Partial Dependent 0 * Partial ADLs (Assistance needed) Medication Management 0 * Equipment Nebulizer Oxygen Walker Wheelchair 0 * Other Equipment HOME AND PORTABLE OXYGEN [facility] - MEDICAL EQUIPMENT PROVIDER PREFERENCE 0 * List name and contact numbers for known caregivers / representatives who currently or will assist patient after discharge: LAZ GONZALEZ, DTR, 0 * Community resources currently utilized Private Duty Care 0 * Please name any agencies selected above. [facility], 7 DAYS PER WEEK, ALL DAYTIME HOURS 0 * Additional services required to return to the preadmission environment? Yes * Can the patient safely return to the preadmission environment? Yes 0 * Has this patient been hospitalized within the prior 30 days at any hospital? No 0 CM RECEIVED ORDER FOR INPATIENT REHAB PRESCREEN, SPOKE TO CARMEN OF INPATIENT REHAB WHO REPORTED THAT PT IS NOT COGNITIVELY THERE TO PARTICIPATE / BENEFIT FROM REHAB OF YESTERDAY. CM MET WITH PT AND DAUGHTER IN ROOM TO DISCUSS DISCHARGE PLANNING AND NEEDS. PT WAS BEING ASSISTED FROM CHAIR TO BED; CM MET WITH DAUGHTER IN [place] OUTSIDE ROOM WHO REPORTS PT LIVING AT HOME DEPENDENT UPON DAUGHTER AND CAREGIVERS WHO ARE WITH PT ALL DAY EVERY DAY DURING DAYTIME HOURS. WHAT PERSONAL CARE THAT IS NOT PAID BY INSURANCE IS PAID FOR OUT OF POCKET BY FAMILY. PT HAS ALL NEEDED MEDICAL EQUIPMENT FROM [facility]. PT HAS NO OTHER OUTSIDE SERVICES ASSISTING IN THE HOME. CM DISCUSSED AVAILABILITY OF HOME HEALTH, REHAB SERVICES AND MEDICAL EQUIPMENT. DAUGHTER WOULD LIKE PT CONSIDERED FOR INPATIENT REHAB AT [place], SHE DOES NOT WANT TO CONSIDER [facility] AND FEELS PT CAN BENEFIT AND PARTICIPATE FULLY WITH REHAB SERVICES. PT HAS BEEN TO [facility] IN THE PAST AND SHOULD HAVE ALL 100 REHAB DAYS IF NEEDED. DAUGHTER REPORTS PT'S MENTAL STATE HAS CLEARED SINCE SHE IS NOT SO "DRUGGED UP." DAUGHTER TO PARAMEDIC SUPERVISOR PT FOR DISCHARGE HOME. IMPORTANT MESSAGE FROM MEDICARE PROVIDED AND EXPLAINED. CM WAITING MEDICAL STABILITY AND INPATIENT REHAB ADMISSION DETERMINATION FROM [facility] INPAT[facility]. Clinical Education Manager: Oli Bates
--- NOTE | 2017-01-11 19:35 | NUR ---
ASSESSMENT COMPLETE, PT LETHARGIC, AROUSES TO VERBAL STIMULI. CONFUSED TO SITUATION, TIME AND WHERE ABOUTS. RESPERATIONS EVEN ON O2 AT 2 LITER, VIA NC. IV TO LEFT FOREARM WITH NS 20 K INFUSING AT 100 CC/HR. SITTER AT BED SIDE, BED LOW, CL IN REACH, WILL CONT TO MONITOR.
[2017-01-11 20:00] VITALS: BP 114/58
--- NOTE | 2017-01-11 21:06 | NUR ---
HS MEDS GIVEN WITH FRESH ICE WATER. DENIES PAIN OR NEEDS.
[2017-01-12] VITALS: BP 104/51
--- NOTE | 2017-01-12 01:48 | NUR ---
RESTING WITH EYES CLOSED, RESPERATIONS EVEN, NO S/S DISTRESS NOTED.
--- NOTE | 2017-01-12 03:37 | NUR ---
PIPELINE GANG SUPERVISOR AT BEDSIDE TO OBTAIN VITALS, WILL CONTINUE WITH PLAN OF CARE.
[2017-01-12 04:00] VITALS: BP 137/58
[2017-01-12 05:48] LABS: BASOPHILS 0.1 % (0-2); EOSINOPHILS 0.9 % (0-7); HEMATOCRIT 43.6 % (36.0-48.0); HEMOGLOBIN 13.7 g/dL (12-16); IMMATURE GRANULOCYTES 0.2 % (0-5); LYMPHOCYTES 13.7 % (15-50); MCH 30.4 pg (26.0-34.0); MCHC 31.4 g/dL (31.0-37.0); MCV 96.9 fL (80.0-100.0); MEAN PLATELET VOLUME 10.5 fL (7.4-10.4); MONOCYTES 7.6 % (2-11); NEUTROPHILS 77.5 % (40-80); PLATELET COUNT 170 10x3/uL (130-400); RDW 14.3 % (11.5-14.5); WBC 8.4 10x3/uL (4.8-10.8)
[2017-01-12 06:08] LABS: CALC OSMOLALITY 267 mosm/kg (275-300); CALCIUM 8.6 mg/dL (8.5-10.1); CARBON DIOXIDE 32.6 mmol/L (21.0-32.0); CHLORIDE - SERUM 99 mmol/L (98-107); CREATININE - SERUM 0.5 mg/dL (0.6-1.3); GLUCOSE 133 mg/dL (74-106); POTASSIUM - SERUM 4.8 mmol/L (3.5-5.1); SODIUM 133 mmol/L (136-145); eGFR NON AFRICAN AMERICAN > 90 mL/min (90-120)
[2017-01-12 06:13] LABS: UREA NITROGEN 12 mg/dL (7-18)
--- NOTE | 2017-01-12 07:25 | NUR ---
PT SITTING UP IN BED SLEEPING RR EVEN AND UNLABORED. NO S/S DISTRESS NOTED WILL CONT TO MONITOR
[2017-01-12 08:00] VITALS: BP 124/48
[2017-01-12 08:12] LABS: MAGNESIUM - SERUM 1.1 mg/dL (1.8-2.4)
--- NOTE | 2017-01-12 09:04 | NUR ---
CENTRAL [employer]PPL[employer] IS TRYING TO FIND THE CONNECTING PORT FOR PLEUREX DRAINAGE SYSTEM SO WE CAN DRAIN PT.
--- NOTE | 2017-01-12 11:15 | NUR ---
Rehab Note- Visited with the patient in her room, sitting up in recliner was able to conversate, wanted me to speak with her daughter Alisha Beauchamp about Rehab. Have called and left a message for Mrs Beauchamp and will await a phone call back. Will continue to follow the patient at this time. Rose Nunez RN Clinical Liaison, [facility] Rehab/Indu
--- NOTE | 2017-01-12 11:20 | NUR ---
PT SITTING UP IN CHAIR. REQUESTING TO BE MOVED BACK TO BED, EXPLAINED TO PT THAT SHE REALLY NEEDED TO TRY TO STAY IN THE CHAIR UNTIL AFTER LUNCH IS SERVED. PT VERBALIZES AGREEMENT AND DENIES FURTHER NEEDS AT THIS TIME. PT SPEECH REMAINS SLURRED AND SHE BEGINS TALKING ABOUT THINGS OFF SUBJECT OR SEEMINGLY AT RANDOM. PT REORIENTS EASILY.
[2017-01-12 12:00] VITALS: BP 129/41
--- NOTE | 2017-01-12 12:47 | NUR ---
Nutrition follow-up: Diet: Regular moist mechanical soft with thin liquids PO intake ~25% of meals Pt has been refusing some meals; confused at times per nursing +BM Labs reviewed Wt: 134# May need to consider nutrition support; NGT vs PEG tube placement if po intake remains poor. RDN following.
--- NOTE | 2017-01-12 13:15 | NUR ---
PT IN SEMI FOWLERS POSITION RESTING WITH EYES CLOSED. RESP. EVEN AND UNLABORED, NO DISTRESS NOTED AT THIS TIME.
--- NOTE | 2017-01-12 14:30 | NUR ---
PT IN LEFT TILT POSITION RESTING WITH EYES CLOSED. RESP. EVEN AND UNLABORED.
--- NOTE | 2017-01-12 15:45 | NUR ---
PT IN SEMI FOWLERS POSITION RESTING WITH EYES CLOSED. AROUSES TO VERBAL STIMULATION. DENTURES NOTED IN BED AND PLACED CONTAINER ON BEDSIDE TABLE WITH PT LABEL. PT DENIES PAIN OR FURTHER NEEDS AT THIS TIME.
[2017-01-12 16:22] VITALS: BP 106/43
--- NOTE | 2017-01-12 18:20 | NUR ---
PT STONE BANKER LIGHT REQUESTING TO MOVE BACK TO BED. THIS RN AND RADHA RN ASSIST PT TO BED IN SEMI FOWLERS POSITION. PT INCONTINENT OF URINE. TOWELS AND CHUX CHANGED. PT DENIES FURTHER NEEDS AT THIS TIME.
--- NOTE | 2017-01-12 19:30 | NUR ---
RECEIVED REPORT, 02-2L, [id number] @30, [id number], CAREGIVER AT BEDSIDE, BED IS LOW, SRX-2, BED ALARM IS ON, PT DENIES ANY NEEDS, CALL LIGHT IN REACH, WILL CONTINUE PLAN OF CARE
[2017-01-12 20:00] VITALS: BP 115/47
--- NOTE | 2017-01-12 22:38 | NUR ---
TOOK HER DENTURES OUT, I PLACED THEM IN DENTURE CUP AND PLACED ON SIDE OF SINK
[2017-01-13] VITALS: BP 125/56
--- NOTE | 2017-01-13 01:53 | NUR ---
ASSESSMENT COMPLETE, PT SLEEPING, BED ALARM IS ON, BED IS LOW, SRX2, CALL LIGHT IN REACH, WILL CONTINUE PLAN OF CARE
--- NOTE | 2017-01-13 03:45 | NUR ---
PT RESTING WELL WITHOUT C/O OR DISTRESS NOTED. NO NEEDS VOICED. CALL LIGHT WITHIN REACH. WILL MONITOR.
[2017-01-13 04:00] VITALS: BP 117/72
[2017-01-13 05:48] LABS: BASOPHILS 0.3 % (0-2); EOSINOPHILS 1.3 % (0-7); HEMATOCRIT 46.6 % (36.0-48.0); HEMOGLOBIN 14.7 g/dL (12-16); IMMATURE GRANULOCYTES 0.1 % (0-5); LYMPHOCYTES 17.3 % (15-50); MCH 30.8 pg (26.0-34.0); MCHC 31.5 g/dL (31.0-37.0); MCV 97.7 fL (80.0-100.0); MEAN PLATELET VOLUME 10.4 fL (7.4-10.4); MONOCYTES 7.8 % (2-11); NEUTROPHILS 73.2 % (40-80); PLATELET COUNT 163 10x3/uL (130-400); RBC 4.77 10x6/uL (4.00-5.40); RDW 14.6 % (11.5-14.5); WBC 7.8 10x3/uL (4.8-10.8)
[2017-01-13 06:08] LABS: CALC OSMOLALITY 271 mosm/kg (275-300); CARBON DIOXIDE 33.1 mmol/L (21.0-32.0); CHLORIDE - SERUM 98 mmol/L (98-107); CREATININE - SERUM 0.5 mg/dL (0.6-1.3); GLUCOSE 154 mg/dL (74-106); MAGNESIUM - SERUM 1.1 mg/dL (1.8-2.4); PHOSPHOROUS 3.1 mg/dL (2.5-4.9); POTASSIUM - SERUM 4.3 mmol/L (3.5-5.1); SODIUM 135 mmol/L (136-145); UREA NITROGEN 10 mg/dL (7-18); eGFR NON AFRICAN AMERICAN > 90 mL/min (90-120)
--- NOTE | 2017-01-13 07:22 | NUR ---
AM ROUNDS - PT APPEARS TO BE SLEEPING WITH EQUAL AND NON LABORED BREATHS. IV TO LEFT FA, NS WITH 20K+ AT 30CC/HR. BED IN LOWEST POSITION, SIDE RAILS UP X2, CALL MORELOS IN REACH. O2 VIA NC AT 2L/HR. MONITOR SHOWING SB, HR 50. WILL CONTINUE TO MONITOR.
[2017-01-13 08:04] VITALS: BP 124/46
--- NOTE | 2017-01-13 09:40 | NUR ---
PT IS SITTING UP IN THE CHAIR WITH BOX ALARM ON AND IS WORKING. NOT IS SAD BECAUSE SHE "IS ALONE" AND WOULD LIKE SOMEONE TO SIT WITH HER. WILL CONTINUE TO CHECK ON HER FREQUENTLY.
[2017-01-13 12:00] VITALS: BP 109/49
--- NOTE | 2017-01-13 12:42 | NUR ---
PT IS IN THE BED ABOUT TO EAT LUNCH. FEMALE VISITOR AT BEDSIDE. NO NEEDS AT THIS TIME. WILL CONTINUE TO MONITOR
[2017-01-13] MEDS ORDERED: ATIVAN2 MG/ML IV (13:56)
[2017-01-13] MEDS ORDERED: ROCEPHIN 1 GM/D51 G1 IV (14:00)
--- NOTE | 2017-01-13 14:35 | NUR ---
Patient Name: LALIT OROZCO Encounter No: [id number] : 1935 Primary Insurance: MEDICARE A & B Anticipated DC Date: 01-13-2017 Planned Disposition: Inpatient Rehab External Planned Provider: [facility] INPATIENT REHAB DCP follow-up note: CM SPOKE TO CARMEN OF INPATIENT REHAB, THEY PLAN TO ACCEPT PT TODAY FOR REHAB. MIK LANDRY NOTIFIED. PT AND DAUGHTER NOTIFIED, IN AGREEMENT WITH DISCHARGE TO INPATIENT REHAB. IMPORTANT MESSAGE FROM MEDICARE PROVIDED AND DISCUSSED. [facility] INPATIENT REHAB TO CONTACT MED 2 NURSE WITH ROOM NUMBER WHEN READY TO ACCEPT PT AND NURSE REPORT. Oli Bates, CASE MANAGEMENT
[2017-01-13 16:00] VITALS: BP 110/45
--- NOTE | 2017-01-13 16:26 | NUR ---
Rehab Note- spoke with daughter. Plan to admit patient today. Spoke with DARRELL Michaels. The patient to admit to 1112B. Thank you for this referral! Rose Nunez RN Clinical Liaison, [facility] Rehab/Indu
--- NOTE | 2017-01-13 17:58 | NUR ---
VERBAL INSTRUCTIONS GIVEN TO PT AND DAUGHTER. NATALIE AND VERBAL INSTRUCTIONS GIVEN TO NEETA IN REHAB. IV LEFT IN LEFT FA. PT LEFT FLOOR VIA WHEELCHAIR WITH STAFF TO REHAB. PT WENT TO ROOM 1112B. WILL D/C
== END 2017-01-13 18:00 | DRG 640 ==
LOC: D.ER 13:20 → D.M2 16:35
PROVIDERS: Emergency Medicine; Family Medicine; ADMIT Family Medicine
DX: E86.0 Dehydration (principal); G93.41 Metabolic encephalopathy; N39.0 Urinary tract infection, site not specified; F02.81 Dementia in other diseases classified elsewhere, unspecified severity, with behavioral disturbance; I27.82 Chronic pulmonary embolism; E87.1 Hypo-osmolality and hyponatremia; E87.6 Hypokalemia; B96.1 Klebsiella pneumoniae [K. pneumoniae] as the cause of diseases classified elsewhere; G30.9 Alzheimer's disease, unspecified; R13.10 Dysphagia, unspecified; F31.9 Bipolar disorder, unspecified; E11.9 Type 2 diabetes mellitus without complications; J44.9 Chronic obstructive pulmonary disease, unspecified; R26.9 Unspecified abnormalities of gait and mobility; L89.601 Pressure ulcer of unspecified heel, stage 1; Z85.118 Personal history of other malignant neoplasm of bronchus and lung; Z72.0 Tobacco use

== ENCOUNTER 2017-01-13 16:44 | Inpatient (IN) | payer MEDICARE, OTHER ==
[~2017-01-13] VITALS: Ht 157.5 cm; Wt 58.1 kg
[~2017-01-13 16:44] MED LIST changes: +ACTOS45 MG PO; +ATIVAN2 MG/ML IV; +DITROPAN X5 MG/BOTTL PO; +FUROSEMIDE20 MG PO; +JANUVIA50 MG PO; +METOLAZONE5 MG PO; +ROCEPHIN 1 GM/D51 G1 IV
[2017-01-13 17:59] VITALS: BP 123/49; BMI 23.4
--- NOTE | 2017-01-13 18:31 | NUR ---
PT WAS ADMITTED TO REHAB UNIT AROUND 1730 VIA WHEELCHAIR AND HOSPITAL STAFF FROM [facility]. PT WAS ALERT BUT CONFUSED TO SITUATION. 02 PER NC GOING AT 2L/MIN. IV PER LEFT FOREARM. TELEMETRY ON. PT'S DAUGHTER IS PRESENT. NO SIGNS OF ANY DISCOMFORT OR DISTRESS. SHE WAS PLACED TO BED WITH SIDE RAILS UP X 2. CALL LIGHT IN REACH.
--- NOTE | 2017-01-13 20:24 | NUR ---
PT HAS SITTING IN WITH HER AT THIS TIME, SPEECH IS INTERMITTENTLY GARBLED, SITTER STATES THIS HAS BEEN A NEW ONSET IN THE LAST MONTH. SITTER STATES SHE ISN'T AWARE OF ANY ANTECEDENT RELATED TO ANXIETY, BUT DOES HAVE ANXIETY, SITTER STATES SHE BELIEVES SHE HAS A HISTORY WHERE SHE WAS TAKING ANTIPSYCHOTIC AND ANTI DEPRESSANT MEDICATIONS. PT RESPIRATIONS ARE REGULAR AND UNALBORED. PT IS SIPPING ON AN ENSURE.
--- NOTE | 2017-01-13 21:14 | NUR ---
NO BED ALARM AVAILABLE, REQUESTED FROM WEBSPHERE ADMINISTRATOR.
--- NOTE | 2017-01-14 04:28 | NUR ---
PT RESTING QUIETLY, EYES CLOSED RESPIRATIONS REGULAR AND UNLABORED. INCONTINENT OF URINE, NEEDS ASSISTANCE WITH BED MOBILITY
[2017-01-14 06:08] LABS: ALBUMIN 2.7 g/dL (3.4-5.0); ALKALINE PHOSPHATASE 57 U/L (46-116); ALT (SGPT) 19 U/L (10-68); BILIRUBIN - TOTAL 0.47 mg/dL (0.2-1.3); CALC OSMOLALITY 278 mosm/kg (275-300); CALCIUM 9.2 mg/dL (8.5-10.1); CARBON DIOXIDE 36.7 mmol/L (21.0-32.0); CHLORIDE - SERUM 98 mmol/L (98-107); CREATININE - SERUM 0.5 mg/dL (0.6-1.3); GLUCOSE 162 mg/dL (74-106); POTASSIUM - SERUM 4.4 mmol/L (3.5-5.1); PROTEIN - SERUM 5.9 g/dL (6.4-8.2); SODIUM 138 mmol/L (136-145); UREA NITROGEN 10 mg/dL (7-18); eGFR NON AFRICAN AMERICAN > 90 mL/min (90-120)
[2017-01-14 06:15] LABS: MAGNESIUM - SERUM 1.4 mg/dL (1.8-2.4)
[2017-01-14 06:51] LABS: BASOPHILS 0.3 % (0-2); EOSINOPHILS 1.3 % (0-7); HEMATOCRIT 43.8 % (36.0-48.0); HEMOGLOBIN 13.6 g/dL (12-16); IMMATURE GRANULOCYTES 0.3 % (0-5); MCH 30.5 pg (26.0-34.0); MCHC 31.1 g/dL (31.0-37.0); MCV 98.2 fL (80.0-100.0); MEAN PLATELET VOLUME 10.8 fL (7.4-10.4); MONOCYTES 8.4 % (2-11); NEUTROPHILS 76.7 % (40-80); PLATELET COUNT 176 10x3/uL (130-400); RBC 4.46 10x6/uL (4.00-5.40); RDW 14.2 % (11.5-14.5); WBC 7.8 10x3/uL (4.8-10.8)
--- NOTE | 2017-01-14 07:07 | NUR ---
MAX ASSIST WITH BED TRANSFER, PT HAS DIFFICULTY ROLLING HER LOWER TRUNK AND EXTREMITIES.
--- NOTE | 2017-01-14 08:15 | NUR ---
PT RESTING IN BED WITH EYES OPEN CALL LIGHT IN REACH WILL MONITER
[2017-01-14 09:28] VITALS: BP 162/67
--- NOTE | 2017-01-14 11:09 | NUR ---
RESTING QUIETLY.CL IN REACH.
[2017-01-14 13:45] VITALS: Ht 157.5 cm; Wt 58.1 kg
--- NOTE | 2017-01-14 15:04 | NUR ---
PT RESTING IN BED WITH EYES OPEN CALL LIGHT IN REACH NO PROBLEMS WILL MONITER
--- NOTE | 2017-01-14 15:16 | NUR ---
PT REFUSES SHOWER WITH OT AND THREATENED HARM IF IT WAS TRIED FAMILY NOTIFIED THAT PT REFUSED
--- NOTE | 2017-01-14 18:09 | NUR ---
PT RESTING WITH VISITOR AT BEDSIDE CALL LIGHT IN REACH WILL MONITER
[2017-01-14 19:28] VITALS: BP 130/63
--- NOTE | 2017-01-14 19:28 | NUR ---
CAREGIVER IS PRESENT IN ROOM, PT CONFUSED TO LOCATION AND SITUATION.
--- NOTE | 2017-01-15 03:25 | NUR ---
pt resting quietly, respirations regular and unlabored, no s/s of acute distress. pt max assist with turning and incontinence care.
[2017-01-15 05:55] LABS: CALC OSMOLALITY 275 mosm/kg (275-300); CALCIUM 9.1 mg/dL (8.5-10.1); CARBON DIOXIDE 36.3 mmol/L (21.0-32.0); CHLORIDE - SERUM 96 mmol/L (98-107); CREATININE - SERUM 0.5 mg/dL (0.6-1.3); GLUCOSE 171 mg/dL (74-106); MAGNESIUM - SERUM 1.6 mg/dL (1.8-2.4); POTASSIUM - SERUM 4.3 mmol/L (3.5-5.1); SODIUM 136 mmol/L (136-145); eGFR NON AFRICAN AMERICAN > 90 mL/min (90-120)
[2017-01-15 05:56] LABS: UREA NITROGEN 13 mg/dL (7-18)
--- NOTE | 2017-01-15 07:35 | NUR ---
incontinent of urine and stool, blood blister on left foot appears to have protectant attached, heels bridged.
--- NOTE | 2017-01-15 08:00 | NUR ---
PT RESTING IN BED WITH EYES OPEN CALL LIGHT IN REACH NO PROBLEMS WILL MONITER
[2017-01-15 08:18] VITALS: BP 141/45
--- NOTE | 2017-01-15 09:56 | RHP ---
PATIENT: LALIT OROZCO MEDICAL RECORD: [id number] ACCOUNT: [id number] LOCATION:[facility]1112 : 35 ADMISSION DATE: 01/13/17 REHABILITATION HISTORY AND PHYSICAL EXAMINATION POST ADMISSION PHYSICIAN EXAMINATION Post-admission Physical Examination and History and Physical DATE OF ADMISSION: 01/13/2017 ADMITTING DIAGNOSIS: Metabolic encephalopathy. HISTORY OF PRESENT ILLNESS: The patient presents to the inpatient rehab secondary to metabolic encephalopathy. She is an 81-year-old female patient of Dr. Hurley, admitted to the Emergency Room on January 07 with acute mental status changes thought to be secondary to medications, electrolyte abnormalities. She had a toxic level of lithium. She has got a history of bipolar. She is on Geodon, lithium and p.r.n. benzo. Her daughter stated that she had been more lethargic than her normal self and had been having problems and started on Geodon by lotus-psych. She had become more alert since admit. She lives at home with her daughter and caregiver. She was able to participate in self-care and mobility per the daughter states that she declined over the previous 3 months. The patient is currently moderate to total assist with ADLs, max assist to total assist with mobility. Her daughter would like for the patient to return back home and get back to her prior level of functioning. Her daughter plans for her to hopefully return better than she was before. COMORBIDITIES: In this patient include metabolic encephalopathy, dysphasia, UTIs, COPD, diabetes, bipolar disorder, impaired functional mobility, hyperlipidemia, history of lung cancer, tobacco use, Alzheimer dementia, hyponatremia, hypokalemia, dehydration, elevated BNP, pulmonary embolus, grandiose delusional ideation, paranoid delusional ideation also. PAST MEDICAL HISTORY: Significant for weakness, diabetes, COPD, lung cancer, depression, and bipolar. PAST SURGICAL HISTORY: Includes bilateral hip surgery, appendectomy, and hysterectomy. ALLERGIES: MORPHINE AND LEVAQUIN. CURRENT MEDICATIONS: Include Januvia 50 mg daily, Ditropan 5 mg daily, furosemide 20 mg daily, Rocephin 1 g daily. She is on an electrolyte replacement protocol at this time. She is on Ativan p.r.n. agitation, diazepam ____ mg b.i.d., Eliquis 5 mg b.i.d., and polyethylene glycol 17 grams in 8 ounces of water daily. HABITS: No alcohol or tobacco use. FAMILY HISTORY: Noncontributory. SOCIAL HISTORY: The patient hopes to return back home and get back to her prior level of functioning and return home with her daughter. REVIEW OF SYSTEMS: HISTORY AND PHYSICAL [id number] LALIT OROZCO GENERAL: Does complain of weakness and fatigue. HEENT: Denies cold, cough, or congestion. CARDIOVASCULAR: Denies chest pain. PHYSICAL EXAMINATION: VITAL SIGNS: Stable, afebrile. GENERAL: Elderly female, in no acute distress, alert upon exam. HEENT: Normocephalic, atraumatic. Mucosa moist. NECK: Supple. No lymphadenopathy. LUNGS: Clear at this time. HEART: Regular rate and rhythm. ABDOMEN: Benign. EXTREMITIES: No clubbing, cyanosis or edema. NEUROLOGIC: Slow to mentate. LABORATORY DATA: Her white count is 7.8, H&H of 13 and 43 and platelet count was noted to be 176. Her sodium is 138, potassium 4.4, BUN and creatinine of 10 and 0.5 and blood sugar was noted to be 162. ASSESSMENT: This is an 81-year-old female patient admitted to rehab with a working diagnosis of metabolic encephalopathy. The patient has potential to make improvement. We instituted the following multidisciplinary therapies including to, but not limited to physical, occupational, respiratory, speech, nutritional services, prosthetics and orthotics. Given her complex condition and risk for more complications, rehabilitation services cannot be provided at a low level of care such as a shelter facility. PLAN: 1. Admit to [facility] rehab for intensive inpatient therapy to include the following disciplines: A. Physical therapy to improve gait, all transfer skills and bed mobility to a modified independent level. B. Occupational therapy to improve activities of daily living to a modified independent level. C. Case management to assist with discharge planning and placement options. D. Nutrition to assist with nutritional needs. E. Rehabilitation nursing to assist in monitoring the patient's underlying medical conditions and to assist with any type of bowel or bladder management. 2. The patient's current medications and medical care will be continued. 3. The patient will be placed on standard fall precautions. 4. The patient's estimated length of stay is approximately 7-10 days. 5. Discuss this patient during care team staff meeting this week. TRANSINT:[id number] Voice Confirmation ID: [id number] DOCUMENT ID: [id number] MABEL notes whether there has been none or any medical/functional change since admission: - MABEL attests patient continues to be appropriate for IRF: - HISTORY AND PHYSICAL [id number] LALIT OROZCO SCOTT MD at 0956 CC: [id number] DICTATION DATE: 01/14/17 1159 COMMERCIAL ASSISTANT: 01/14/17 1241 ADM IN [place] [id number] [place] [id number]
--- NOTE | 2017-01-15 15:25 | NUR ---
RESTING QUIETLY AT THE MOMENT.CL IN REACH;VISITOR/CG IN CHAIR SLEEPING.
--- NOTE | 2017-01-15 15:54 | NUR ---
PT RESTING IN BED WITH EYES OPEN CALL LIGHT IN REACH NO PROBLEMS WILL MONITER
--- NOTE | 2017-01-15 20:00 | NUR ---
PT IN BED WITH HOB UP FOR COMFORT WITH EYES CLOSED AND RESP. EVEN. PT. AWAKENS EASILY FOR ASSESSMENT. NO VOICED NEEDS AT THIS TIME AND HER CALL LIGHT IS WITHIN REACH.
[2017-01-15 20:30] VITALS: BP 97/61
--- NOTE | 2017-01-15 23:24 | NUR ---
PT. IN BED WITH HOB, EYES CLOSED AND RESP. EVEN. CALL LIGHT WITHIN REACH.
--- NOTE | 2017-01-16 02:00 | NUR ---
PT IN THERAPY ROOM WITH OT AT THIS TIME. PT IS PARTICIPATING.
--- NOTE | 2017-01-16 03:13 | NUR ---
PT. IN BED WITH HOB UP FOR COMFORT WITH EYES CLOSED AND RESP. EVEN. CALL LIGHT WITHIN REACH.
[2017-01-16 07:04] LABS: BASOPHILS 0.3 % (0-2); EOSINOPHILS 1.1 % (0-7); HEMATOCRIT 45.1 % (36.0-48.0); HEMOGLOBIN 14.2 g/dL (12-16); IMMATURE GRANULOCYTES 0.3 % (0-5); LYMPHOCYTES 15.4 % (15-50); MCH 30.5 pg (26.0-34.0); MCHC 31.5 g/dL (31.0-37.0); MCV 96.8 fL (80.0-100.0); MEAN PLATELET VOLUME 10.6 fL (7.4-10.4); MONOCYTES 11.7 % (2-11); NEUTROPHILS 71.2 % (40-80); PLATELET COUNT 204 10x3/uL (130-400); RBC 4.66 10x6/uL (4.00-5.40); RDW 14.1 % (11.5-14.5); WBC 7.5 10x3/uL (4.8-10.8)
[2017-01-16 07:21] LABS: CALC OSMOLALITY 275 mosm/kg (275-300); CHLORIDE - SERUM 97 mmol/L (98-107); CREATININE - SERUM 0.5 mg/dL (0.6-1.3); GLUCOSE 189 mg/dL (74-106); POTASSIUM - SERUM 4.7 mmol/L (3.5-5.1); SODIUM 135 mmol/L (136-145); UREA NITROGEN 16 mg/dL (7-18); eGFR NON AFRICAN AMERICAN > 90 mL/min (90-120)
--- NOTE | 2017-01-16 07:48 | NUR ---
PT UP EATING BREAKFAST, DENIES NEEDS.
[2017-01-16 07:50] VITALS: BP 129/79
--- NOTE | 2017-01-16 12:43 | NUR ---
PT VERY LETHARGIC. PT REFUSES TO WAKE UP FOR LUNCH. WCTM.
--- NOTE | 2017-01-16 16:51 | NUR ---
AFTER THERAPY PT WENT BACK TO BED AND HAS SLEPT ALL AFTERNOON. PT RR ARE EVEN AND UNLABORED AND AROUSES TO VOICE BUT THEN RETURNS RIGHT BACK TO SLEEP. WCTM.
--- NOTE | 2017-01-16 19:30 | NUR ---
PATIENT AWAKE, ALERT. DENIES NEEDS. ASSISTED HER TO FIND A SUITABLE TV CHANNEL.
--- NOTE | 2017-01-16 21:05 | NUR ---
ASSESSMENT AND HS MEDS COMPLETE. PATIENT TOOK PO MEDS WHOLE, SINGLY, WITH WATER AND HOB UP HIGH. LOWERE HOB TO 10 DEGREES AND TURNED PATIENT TO RIGHT SIDELYING POSITION FOR PRESSURE RELIEF TO REDDENED BUTTOCKS. APPLIED BUTT PASTE TO CENTRAL BUTTOCKS AND GLUTEAL CLEFT FOR REDNESS. PATIENT DENIES NEEDS.
[2017-01-16 21:20] VITALS: BP 109/53
--- NOTE | 2017-01-16 22:25 | NUR ---
RESTING QUIELTY ON RIGHT SIDE, EYES CLOSED.
--- NOTE | 2017-01-16 23:45 | NUR ---
RESTING IN BED, EYES CLOSED. NO DISTRESS NOTED.
--- NOTE | 2017-01-17 01:50 | NUR ---
RESTING QUIETLY ON LEFT SIDE WHERE SHE WAS POSITIONED AFTER SHE WAS CLEANSED AND CHANGED FROM A LARGE URINE INCONTINENCE IN HER BRIEF AT 0120.
--- NOTE | 2017-01-17 04:40 | NUR ---
RESTING QUIETLY IN BED, EYES CLOSED. RESPIRING QUIETLY.
--- NOTE | 2017-01-17 06:10 | NUR ---
CLEANSED AND CHANGED PATIENT FROM LARGE URINE INCONTINENCE IN BRIEF WHICH ALSO REQUIRED CHANGING HER PINK PAD AND BLUE AIR PAD OVER IT. PATIENT IS A BIT LETHARGIC THIS MORNING AND SLIGHTLY UNCOOPERATIVE WITH CHANGING HER BUT WE WERE ABLE TO ACCOMPLISH THE TASK SATISFACTORILY. ALSO CHANGED HER SCRUB TOP.
--- NOTE | 2017-01-17 08:08 | NUR ---
PT EATING BREAKFAST, DENIES NEEDS. CL IN REACH.
--- NOTE | 2017-01-17 14:57 | NUR ---
NUTRITION MONITORING & EVAL CHART REVIEWED, PT WITH THERAPIST. [facility]. 25 TO 50% RECENT MEALS. WILL CONTINUE TO PROVIDE DIET, ENCOURAGE PO INTAKE. RD FOLLOWING
--- NOTE | 2017-01-17 15:26 | NUR ---
WOUND CARE CONSULT: INTACT DRY HEALING BLISTER ON RIGHT HEEL. NO REDNESS, EDEMA, DRAINAGE, ODOR OR TENDERNESS. APPLIED SKIN PROTECTANT TO HEEL. RECOMMEND KEEPING HEEL BRIDGED WHILE IN BED. MEASURES 4CM X 2CM. WILL MONITOR.
--- NOTE | 2017-01-17 18:04 | NUR ---
PT FAMILY IN ROOM ASSISTING WITH NEEDS. WCTM.
[2017-01-17 18:54] VITALS: BP 116/82
--- NOTE | 2017-01-17 19:30 | NUR ---
PATIENT IN BED. VISITOR AT BEDSIDE. PATIENT DENIES CURRENT NEEDS.
--- NOTE | 2017-01-17 20:15 | NUR ---
PATIENT RESTING QUIETLY IN BED, EYES CLOSED.
--- NOTE | 2017-01-17 22:40 | NUR ---
AWOKE PATIENT FOR ASSESSMENT AND HS MEDS WHICH ARE NOW COMPLETE. PATIENT QUIET DROWSY EVEN 5 MINUTES AFTER AWAKENING HER. TOOK HS MEDS WITH MILD SWALLOWING DIFFICULTY. COUGHED A FEW TIMES AFTER DRINKING WATER WITH PILLS, BUT WAS ABLE TO CLEAR THE PROBLEM AND THEN SWALLOWED. ISSUE MAY BE MORE ONE OF AWARENESS AND COGNITION THAN PHYSICAL IMPAIRMENT OF SWALLOWING MECHANISM.
--- NOTE | 2017-01-18 | NUR ---
IN BED, EYES CLOSED. CALLING OUT SOFTLY A FEW TIMES IN HER SLEEP WHILE I OBSERVED, THEN SETTLED.
--- NOTE | 2017-01-18 02:10 | NUR ---
CONTINUES IN BED, EYES CLOSED.
--- NOTE | 2017-01-18 06:00 | NUR ---
OCCUPATIONAL THERAPIST AIDE JUST CLEANSED AND CHANGED PATIENT AFTER LARGE URIN INCONTINENCE. PATIENT WAS GIVEN HER SCHEDULED NYSTATIN PO.
--- NOTE | 2017-01-18 08:00 | NUR ---
PT UP IN BED EATING BREAKFAST CALL LIGHT IN REACH NO PROBLEMS WILL MONITER
--- NOTE | 2017-01-18 10:00 | NUR ---
OT ASSISTING OOB TO WC FOR THERAPY.
--- NOTE | 2017-01-18 10:55 | NUR ---
PATIENT PLANS ARE FOR PATIENT TO RETURN HOME WITH HER CAREGIVERS THAT SHE HAS 7 DAYS PER WEEK THROUGH [facility]. PATIENT PCP IS SEVERIANO DELGADO IS PATIENT PHARMACY AND HER DME NEEDS ARE PROVIDED FROM [facility]. PATIENT HAS A NEBULIZER, WALKER, WHEELCHAIR AND O2. [place] DISCHARGE DATE IS 02/02/17. WILL CONTINUE TO FOLLOW WITH PATIENT UNTIL DISCHARGED
--- NOTE | 2017-01-18 16:49 | NUR ---
PT RESTING IN BED WITH EYES OPEN CALL LIGHT IN REACH WILL MONITER
--- NOTE | 2017-01-18 19:20 | NUR ---
IN BED, AWAKE. HOME CAREGIVER VISITING AT BEDSIDE.
[2017-01-18 21:45] VITALS: BP 117/71
--- NOTE | 2017-01-18 21:50 | NUR ---
CLEANSED PATIENT, CHANGED BRIEF AND ALL BED LINENS AFTER A VERY LARGE URINE INCONTINENCE IN BED. ASSESSMENT AND HS MED THEN COMPLETED. APPLIED BUTT PASTE TO MILDLY REDDENED BUTTOCKS AND TURNED PATIENT TO RIGHT SIDELYING POSITION.
--- NOTE | 2017-01-19 00:10 | NUR ---
RESTING IN BED, EYES CLOSED. NO DISCOMFORT NOTED.
--- NOTE | 2017-01-19 02:25 | NUR ---
CLEANSED PATIENT AND CHANGED HER BRIEF AND PINK BED PAD AFTER LARGE URINE INCONTINENCE DURING SLEEP.
--- NOTE | 2017-01-19 04:45 | NUR ---
RESTING QUIETLY IN BED, EYES CLOSED.
--- NOTE | 2017-01-19 06:00 | NUR ---
CLEANSED PATIENT AND CHANGED BRIEF AND PINK BED PAD. APPLIED BUTT PASTE TO BUTTOCKS. CHANGED PATIENT'S SCRUB TOP.
--- NOTE | 2017-01-19 08:15 | NUR ---
PT RESTING IN BED WITH EYES OPEN CALL LIGHT IN REACH NO PROBLEMS WILL MONITER
--- NOTE | 2017-01-19 10:30 | NUR ---
GETTING UP/THERAPY TO WC.ALARM ON.
[2017-01-19 11:58] VITALS: BP 124/59
--- NOTE | 2017-01-19 15:32 | NUR ---
PT UP IN WHEELCHAIR AT BEDSIDE TALKING WITH DAUGHTER CALL LIGHT IN REACH WILL MONITER
[2017-01-19 19:20] VITALS: BP 119/68
--- NOTE | 2017-01-19 19:20 | NUR ---
VS AND ASSESSMENT COMPLETE. HOME SITTER VISITING AT BEDSIDE. CHECKED PATIENT FOR INCONTINENCE AND FOUND HER TO BE DRY.
--- NOTE | 2017-01-19 21:50 | NUR ---
CLEANSED AND CHANGED PATIENT FROM LARGE URINARY INCONTINENCE. REQUIRED PINK BED PAD CHANGE ALSO, WELL SCRUB TOP. GAVE PATIENT HER HS MEDS. SWALLOWED BETTER TONIGHT.
--- NOTE | 2017-01-20 00:10 | NUR ---
IN BED, EYES CLOSED. NO APPARENT DISTRESS. CONTINUES ON O2 @ 3L FLOW PER N/C.
--- NOTE | 2017-01-20 01:55 | NUR ---
CLEANSED PATIENT AND CHANGED BRIEF AND PINK PAD DUE TO LARGE URINE INCONTINENCE DURING SLEEP. TURNED HER TO RIGHT SIDELYING POSITION.
--- NOTE | 2017-01-20 04:00 | NUR ---
RESTING QUIETLY ON RIGHT SIDE, EYES CLOSED. NO EVIDENT DISCOMFORT.
--- NOTE | 2017-01-20 06:30 | NUR ---
CLEANSED PATINET FROM LARGE URNARY INCONTINENCE. CHANGED HER PULL-UP AND PINK BED PAD.
[2017-01-20 06:40] LABS: BASOPHILS 0.3 % (0-2); EOSINOPHILS 0.8 % (0-7); HEMOGLOBIN 14.8 g/dL (12-16); IMMATURE GRANULOCYTES 0.3 % (0-5); LYMPHOCYTES 13.8 % (15-50); MCH 30.1 pg (26.0-34.0); MCHC 30.8 g/dL (31.0-37.0); MCV 97.8 fL (80.0-100.0); MEAN PLATELET VOLUME 10.4 fL (7.4-10.4); MONOCYTES 8.4 % (2-11); NEUTROPHILS 76.4 % (40-80); RBC 4.91 10x6/uL (4.00-5.40); WBC 7.9 10x3/uL (4.8-10.8)
[2017-01-20 06:46] LABS: PLATELET COUNT 254 10x3/uL (130-400)
[2017-01-20 07:31] LABS: CALC OSMOLALITY 282 mosm/kg (275-300); CALCIUM 9.4 mg/dL (8.5-10.1); CARBON DIOXIDE 31.2 mmol/L (21.0-32.0); CHLORIDE - SERUM 99 mmol/L (98-107); CREATININE - SERUM 0.6 mg/dL (0.6-1.3); GLUCOSE 192 mg/dL (74-106); POTASSIUM - SERUM 4.4 mmol/L (3.5-5.1); SODIUM 138 mmol/L (136-145); UREA NITROGEN 19 mg/dL (7-18); eGFR NON AFRICAN AMERICAN > 90 mL/min (90-120)
[2017-01-20 08:36] VITALS: BP 102/68
--- NOTE | 2017-01-20 09:00 | NUR ---
PT AM MEDS ADMINISTERED. PT DENIES NEEDS. WCTM.
--- NOTE | 2017-01-20 12:00 | NUR ---
PT UP IN WC READING THE PAPER AND WAITING FOR LUNCH. DENIES NEEDS.
--- NOTE | 2017-01-20 13:33 | NUR ---
PT REQ AND REC'D PRN MIRALAX MIXED IN PRUNE JUICE. PT STATED SHE WAS HAVING TROUBLE HAVING A BM THIS AM. WCTM.
--- NOTE | 2017-01-20 19:25 | NUR ---
PT RESTING WITH EYES CLOSED, RESPIRATIONS REGULAR AND UNLABORED. OXYGEN ON, VITAL SIGNS WNL. PT AROUSED AND ANSWERED QUESTIONS APPROPRIATELY. SITTER PRESENT, STATES SHE WILL BE HERE TILL 2012.
[2017-01-20 19:32] VITALS: BP 106/71
--- NOTE | 2017-01-21 04:32 | NUR ---
PT RESTING QUIETLY, INCONTINENCE CARE, PT HAS NO INDICATION OF BEING WET OR INCONTINENT.
--- NOTE | 2017-01-21 08:19 | NUR ---
PT UP EATING BREAKFAST. DENIES. NEEDS
[2017-01-21 08:30] VITALS: BP 125/71
--- NOTE | 2017-01-21 09:55 | NUR ---
PT AM MEDS ADMINISTERED. PT DENIES NEEDS.
--- NOTE | 2017-01-21 12:20 | NUR ---
PT HAD EPISODE OF INCONTINENT URINE. PT ASSISTED UP TO BR. PT BED CHANGED. PT DENIES SHOWER AT THIS TIME. WILL OFFER AGAIN THIS AFTERNOON. PT CURRENTLY SITTING UP IN WAITING FOR LUNCH.
--- NOTE | 2017-01-21 18:40 | NUR ---
PT ASSISTED BACK TO BED, DENIES FURHTER NEEDS. WCTM.
[2017-01-21 19:42] VITALS: BP 113/63
--- NOTE | 2017-01-21 20:24 | NUR ---
RESPONDED TO CALL LIGHT AND PT STATED SHE WAS JUST PUSHING BUTTONS. PT SMILES FREELY, ENCOURAGED FLUIDS, PT STATES SHE WILL DRINK HER WATER. DENIES PAIN.
--- NOTE | 2017-01-21 20:32 | NUR ---
PT DISORIENTED TO TIME OF DAY, ASSISTED WITH MIN ASSIST TRANSFER FROM BED TO W/C. ASSISTED WITH PUTTING DENTURES IN MOUTH, INCONTINENT OF URINE. PT VERBALIZED SHE DID FEEL WET.
--- NOTE | 2017-01-22 02:47 | NUR ---
pt resting quietly, respirations regular and unlabored. no s/s of acute distress.
--- NOTE | 2017-01-22 06:48 | NUR ---
pt pleasant, denies any concerns. pt incontinent of urine, partial bath, linen and clothing change.
--- NOTE | 2017-01-22 09:20 | NUR ---
PT AM MEDS ADMINISTERED. PT SITTING UP IN WHEELCHAIR EATING BREAKFAST, DENIES NEEDS.
[2017-01-22 10:26] VITALS: BP 122/60
--- NOTE | 2017-01-22 11:44 | NUR ---
PT SITTING UP IN WC WATCHING TV, DENIES NEEDS.
--- NOTE | 2017-01-22 19:30 | NUR ---
PT AWAKE, WATCHING TV, PLEASANT, DENIES PAIN, DENIES SOB, OR ANY NEEDS AT PRESENT.
[2017-01-22 19:35] VITALS: BP 106/60
--- NOTE | 2017-01-23 03:29 | NUR ---
PT AWAKE, PLEASANT, SMILES EASILY, REORIENTED TO TIME OF DAY. PT STATES SHE IS GOING BACK TO SLEEP.
[2017-01-23 06:56] LABS: BASOPHILS 0.2 % (0-2); HEMATOCRIT 44.3 % (36.0-48.0); HEMOGLOBIN 13.5 g/dL (12-16); IMMATURE GRANULOCYTES 0.3 % (0-5); LYMPHOCYTES 20.4 % (15-50); MCHC 30.5 g/dL (31.0-37.0); MCV 98.4 fL (80.0-100.0); MEAN PLATELET VOLUME 10.2 fL (7.4-10.4); MONOCYTES 7.8 % (2-11); NEUTROPHILS 70.3 % (40-80); PLATELET COUNT 257 10x3/uL (130-400); RDW 13.7 % (11.5-14.5)
[2017-01-23 07:08] LABS: CALC OSMOLALITY 284 mosm/kg (275-300); CALCIUM 9.1 mg/dL (8.5-10.1); CARBON DIOXIDE 33.8 mmol/L (21.0-32.0); CHLORIDE - SERUM 101 mmol/L (98-107); CREATININE - SERUM 0.5 mg/dL (0.6-1.3); GLUCOSE 170 mg/dL (74-106); POTASSIUM - SERUM 4.4 mmol/L (3.5-5.1); SODIUM 139 mmol/L (136-145); UREA NITROGEN 22 mg/dL (7-18); eGFR NON AFRICAN AMERICAN > 90 mL/min (90-120)
--- NOTE | 2017-01-23 07:30 | NUR ---
Pt lying in bed eyes closed resting
--- NOTE | 2017-01-23 07:55 | NUR ---
SITTING UP EATING BREAKFAST. CALL LIGHT IN REACH
[2017-01-23 08:00] VITALS: BP 128/58
--- NOTE | 2017-01-23 09:30 | NUR ---
Assisted pt out of bed and with changing clothes min assist, pt sitting in wheelchair alarm director of field coordination light in reach
--- NOTE | 2017-01-23 10:32 | NUR ---
NUTRITION MONITORING & EVAL CHART REVIEWED. PT VISIT. REG DIET ~50% INTAKE RECENT MEALS. ADDED ENSURE TO MEALS. RD FOLLOWING
--- NOTE | 2017-01-23 11:58 | NUR ---
pt in therapy
--- NOTE | 2017-01-23 14:00 | NUR ---
PT FOLDING WASHCLOTHS AT NURSES STATION QUIETLY
--- NOTE | 2017-01-23 16:38 | NUR ---
PT SITTING IN WHEELCHAIR COLORING QUIETLY
--- NOTE | 2017-01-23 18:15 | NUR ---
PT SITTING UP IN WHEELCHAIR VISITING WITH FAMILY
[2017-01-23 19:43] VITALS: BP 100/49
--- NOTE | 2017-01-23 19:50 | NUR ---
PT STATES SHE HAD A GOOD DAY AND SHE IS TIRED. DENIES ANY NEEDS.
--- NOTE | 2017-01-24 05:07 | NUR ---
ASSISTED PT TO W/C MIN ASSIST. PT STATES SHE IS TIRED OF LAYING IN BED AND NEEDS TO SIT UP.
--- NOTE | 2017-01-24 08:15 | NUR ---
PT UP IN WHEELCHAIR AT BEDSIDE EATING SUPPER CALL LIGHT IN REACH WILL MONITER
[2017-01-24 09:09] VITALS: BP 121/76
--- NOTE | 2017-01-24 10:46 | NUR ---
RESTING QUIETLY IN BED.CL IN REACH.
--- NOTE | 2017-01-24 12:54 | NUR ---
CARE TEAM MEETING: PATIENT TENATIVE DISCHARGE DATE IS 02/02/17 TO GO HOME WITH FAMILY. WILL CONTINUE TO FOLLOW WITH PATIENT UNTIL DISCHARGED
--- NOTE | 2017-01-24 13:23 | NUR ---
WOUND CARE REASSESSMENT: DRY BLISTER RIGHT HEEL REMAINS INTACT. NO OPEN AREA, NO REDNESS, TENDERNESS, DRAINAGE OR ODOR. RECOMMEND CONTINUING COVERING HEEL WITH SKIN PROTECTANT AND KEEPING IT BRIDGED. WILL CONTINUE TO MONITOR.
--- NOTE | 2017-01-24 15:33 | NUR ---
PT RESTING IN BED WITH EYES OPEN CALL LIGHT IN REACH NO PROBLEMS WILL MONITER CALL LIGHT IN REACH WILL MONITER
[2017-01-24 19:05] VITALS: BP 126/53
--- NOTE | 2017-01-24 19:50 | NUR ---
PT. IN BED WITH HOB UP FOR COMFORT AND IS WATCHING TV PROGRAM. ASSESSMENT COMPLETED. NO VOICED NEEDS AT THIS TIME AND PT. HAS HER CALL LIGHT WITHIN REACH.
--- NOTE | 2017-01-24 23:09 | NUR ---
PT. IN BED WITH HOB SLIGHTLY ELEVATED FOR COMFORT. EYES CLOSED AND RESP. EVEN. CALL LIGHT WITHIN REACH.
[2017-01-24 23:16] VITALS: BP 126/53
[2017-01-25 06:38] LABS: BASOPHILS 0.3 % (0-2); EOSINOPHILS 0.7 % (0-7); HEMATOCRIT 47.4 % (36.0-48.0); HEMOGLOBIN 14.6 g/dL (12-16); IMMATURE GRANULOCYTES 0.3 % (0-5); LYMPHOCYTES 18.3 % (15-50); MCH 30.3 pg (26.0-34.0); MCHC 30.8 g/dL (31.0-37.0); MCV 98.3 fL (80.0-100.0); MEAN PLATELET VOLUME 10.5 fL (7.4-10.4); MONOCYTES 8.5 % (2-11); NEUTROPHILS 71.9 % (40-80); PLATELET COUNT 264 10x3/uL (130-400); RBC 4.82 10x6/uL (4.00-5.40); RDW 13.9 % (11.5-14.5); WBC 7.4 10x3/uL (4.8-10.8)
[2017-01-25 06:57] LABS: CALC OSMOLALITY 279 mosm/kg (275-300); CALCIUM 9.4 mg/dL (8.5-10.1); CARBON DIOXIDE 30.7 mmol/L (21.0-32.0); CHLORIDE - SERUM 96 mmol/L (98-107); CREATININE - SERUM 0.6 mg/dL (0.6-1.3); GLUCOSE 128 mg/dL (74-106); POTASSIUM - SERUM 4.3 mmol/L (3.5-5.1); SODIUM 137 mmol/L (136-145); UREA NITROGEN 24 mg/dL (7-18); eGFR NON AFRICAN AMERICAN > 90 mL/min (90-120)
--- NOTE | 2017-01-25 07:45 | NUR ---
IN BED WITH CL IN REACH.
--- NOTE | 2017-01-25 08:23 | NUR ---
PATIENT ALERT/ORIENT TO SELF AND PLACE AND SITUATION. OXYGEN ON AT 2L PER N/C. BED ALARM ON. CALL LIGHT WITHIN REACH. VOICES NO NEEDS AT THIS TIME
[2017-01-25 09:04] VITALS: BP 108/73
--- NOTE | 2017-01-25 11:52 | NUR ---
PATIENT SITTING UP IN WHEELCHAIR AT BEDSIDE TO EAT SUPPER. CHAIR ALARM ON.
--- NOTE | 2017-01-25 14:16 | NUR ---
PATIENT DOWN IN REHAB ROOM. WORKING WITH PHYSICAL THERAPIST. DENIES ANY PAIN/DISC AT THIS TIME.
--- NOTE | 2017-01-25 17:34 | NUR ---
PATIENT IS VERY CONFUSED. UP IN WHEELCHAIR. CHAIR ALARM ON. CALL LIGHT WITHIN REACH.
--- NOTE | 2017-01-25 19:45 | NUR ---
CLEANSED AND CHANGED PATIENT FROM LARGE URINARY INCONTINENCE. INSTRUMENT MAN REPORTS THIS IS THE 2ND SINCE 1830. PATIENT DENIES FURTHER NEEDS. DID NOT REPORT THIS INCONTINENCE. I DISCOVERED IT ON ROUNDS. SELDOM REPORTS TORRES SHE IS WET.
[2017-01-25 20:15] VITALS: BP 132/78
--- NOTE | 2017-01-25 21:45 | NUR ---
CLEANSED AND CHANGED PATIENT FROM LARGE URINE INCONTINENCE. THEN PROCEEDED WITH ASSESSMENT AND HS MEDS.
--- NOTE | 2017-01-26 00:30 | NUR ---
RESTING QUIETLY, EYES CLOSED.
--- NOTE | 2017-01-26 01:35 | NUR ---
PATIENT CALLED TO "GET UP." REMINDED HER OF THE EARLY HOUR AND IT IS NOT TIME FOR THERAPY. CLEANSED PATIENT & CHANGED HER PULL-UP, PINK PAD AND SCRUB TOP AFTER VERY LARGE URINE INCONTINENCE WHILE SLEEPING. TURNED HER TO PARTIAL RIGHT SIDELYING POSITION.
--- NOTE | 2017-01-26 02:40 | NUR ---
PATIENT IN BED, AWAKE. WATCHING TV.
--- NOTE | 2017-01-26 04:50 | NUR ---
REMAINS AWAKE FOR NOW. DENIES NEEDS.
--- NOTE | 2017-01-26 06:00 | NUR ---
CLEANSED PATIENT AND CHANGED HER BRIEF AFTER MODERATE URINE INCONTINENCE. PATIENT INSISTING ON GETTING UP. REMINDED HER THAT BREAKFAST IS 2 HOURS AWAY.
--- NOTE | 2017-01-26 07:40 | NUR ---
Assisted pt to restroom and dressing, A&O x3 pleasant affect
[2017-01-26 08:21] VITALS: BP 109/60
--- NOTE | 2017-01-26 09:30 | NUR ---
Pt in therapy
--- NOTE | 2017-01-26 11:30 | NUR ---
PT IN PHYS THERAPY
--- NOTE | 2017-01-26 13:30 | NUR ---
PT LYING IN BED HOB 30 DEGREES EYES CLOSED RESTING QUIETLY
--- NOTE | 2017-01-26 15:30 | NUR ---
PT IN SPEECH THERAPY
--- NOTE | 2017-01-26 17:16 | NUR ---
PT IN ROOM SITTING IN W/C ALARM ON. PT IS RESTLESS AND STATES SHE "FEELS LIKE A CAGED ANIMAL AND IS READY TO GO HOME". BOBBY STARK ASSISTED WITH ADLS AND TOOK PT OUTSIDE ON PATIO
[2017-01-26 19:00] VITALS: BP 104/63
--- NOTE | 2017-01-26 19:20 | NUR ---
PT SIT UP IN WHEELCHAIR AND WATCH TV.
--- NOTE | 2017-01-27 01:20 | NUR ---
ASSISTED PATIENT TO REPOSITION UP IN BED. REMAINS CONFUSED.
--- NOTE | 2017-01-27 01:42 | NUR ---
INCONTINENCE, CHANGE LINEN AND GOWN.
--- NOTE | 2017-01-27 07:03 | NUR ---
RESTING QUIETLY IN BED. EYES CLOSED. CALL LIGHT IN REACH
[2017-01-27 08:00] VITALS: BP 125/69
--- NOTE | 2017-01-27 09:27 | NUR ---
PATIENT ALERT/ORIENT X2. BED ALARM ON. CALL LIGHT WITHIN REACH. OXYGEN ON AT 2L PER N/C. PO 91%. VOICES NO NEEDS AT THIS TIME.
--- NOTE | 2017-01-27 10:00 | NUR ---
PATIENT GOTTEN OUT OF BED BY THERAPY. PATIENT WET. DOES NOT TELL THIS NURSE WHEN SHE IS INCONT OF URINE. SHOWER GIVEN BY OCCUPATIONAL THERAPIST. LINENS ON BED CHANGED.
--- NOTE | 2017-01-27 13:50 | NUR ---
PATIENT DOWN IN REHAB ROOM. WORKING WITH PHYSICAL THERAPIST. DENIES ANY PAIN/DISC AT THIS TIME
--- NOTE | 2017-01-27 15:22 | NUR ---
BRENDAN, SPEECH THERAPIST IN ROOM WORKING WITH PATIENT. PATIENT SITTING UP IN CHAIR AT BEDSIDE.
--- NOTE | 2017-01-27 19:00 | NUR ---
SITTING UP IN W/C, AWAKE. DENIES NEEDS.
[2017-01-27 20:16] VITALS: BP 121/67
--- NOTE | 2017-01-27 20:25 | NUR ---
ASSESSMENT AND HS MEDS COMPLETE. PATIENT SAYS SHE WANTS TO REMAIN IN HER W/C AWHILE LONGER. TOLD HER TO CALL WHEN READY TO GET INTO BED AND SOMEONE WILL ASSIST HER.
--- NOTE | 2017-01-27 22:05 | NUR ---
AFTER NUMEROUS FALSE CALLS (USED CALL LIGHT BUT THEN STATED SHE DID NOT NEED ANYTHING), PATIENT WAS FINALLY ASSISTED UP TO BR TO URINATE, CHANGE HER PULL-UP AND GET INTO BED FOR THE NIGHT. TELLER COORDINATOR PROVIDED THIS ASSISTANCE.
--- NOTE | 2017-01-28 00:40 | NUR ---
CLEANSED PATIENT, CHANGED HER PINK PAD AND HER PJ TOP DUE TO SATURATION WITH URINE. WHILE ATTEMPTING TO PULL UP FRESH BRIEF PATIENT AGAIN URINATED A VERY LARGE AMOUNT INTO PINK BED PAD AND AGAIN REQUIRED CLEANSING HER AND CHANGING HER PINK BED PAD. PATIENT SAID SHE KNEW SHE WAS URINATING AGAIN. BUT WHEN I ASKED HER WHY SHE DID NOT SAY ANYTHING ABOUT IT, SHE SIMPLY SAID, "I DON'T KNOW."
--- NOTE | 2017-01-28 02:00 | NUR ---
RESTING QUIETLY, EYES CLOSED. NO DISTRESS EVIDENT.
--- NOTE | 2017-01-28 06:10 | NUR ---
CLEANSED PATIENT AND CHANGED HER AFTER LARGE URINARY INCONTINENCE AND SMALL FORMED BM INCONTINENCE IN HER BRIEF. DID NOT REQUIRE A PINK BED PAD CHANGE THIS TIME. SCRUB TOP WAS CHANGED DURING THE NIGHT.
--- NOTE | 2017-01-28 07:30 | NUR ---
PT IS RESTING IN BED FEEDING SELF BREAKFAST. ALERT AND ORIENTED X 3. DENIES ACUTE PAIN OR DISCOMFORT. NO NEEDS VOICED. O2 IS ON @ 2LPM PER NC. NO SOB NOTED. SR'S ARE UP X 3 IN BED. CALL LIGHT AND BEDSIDE TABLE ARE WITHIN EASY REACH.
--- NOTE | 2017-01-28 08:00 | NUR ---
IN BED.BREAKFAST EATEN.CL IN REACH.
--- NOTE | 2017-01-28 08:59 | NUR ---
PT IS RESTING IN BED. ANXIOUS TO START THERAPY. NO OTHER NEEDS VOICED.
[2017-01-28 09:20] VITALS: BP 129/70
--- NOTE | 2017-01-28 11:59 | NUR ---
PT IS FEEDING SELF SONIC HER DAUGHTER BROUGHT HER FOR LUNCH. NO DISTRESS NOTED.
--- NOTE | 2017-01-28 14:34 | NUR ---
PT IS SITTING IN A WC IN HER ROOM TALKING TO HER ROOM MATE. NO NEEDS VOICED.
--- NOTE | 2017-01-28 16:35 | NUR ---
PT RESTING QUIETLY IN BED WITH EYES CLOSED. AWOKE FOR MEDS. NO NEEDS VOICED.
--- NOTE | 2017-01-28 19:30 | NUR ---
PT. IN BED WITH HOB UP FOR COMFORT WATCHING TV. NO VOICED NEEDS AT THIS TIME. ASSESSMENT COMPLETED. WANTS SOMETHING TO HELP HER TO SLEEP TONIGHT. CALL LIGHT WITHIN REACH.
[2017-01-28 20:06] VITALS: BP 94/51
--- NOTE | 2017-01-28 23:20 | NUR ---
PT. IN BED WITH HOB UP FOR COMFORT WITH EYES CLOSED AND RESP. EVEN. CALL LIGHT WITHIN REACH.
--- NOTE | 2017-01-29 03:07 | NUR ---
PT. IN BED WITH HOB UP FOR COMFORT AND IS WATCHING TV BETWEEN NAPS. PT. AWAKENS EASILY WHEN YOU ENTER ROOM. NO VOICED NEEDS AT THIS TIME AND SHE HAS HER CALL LIGHT WITHIN REACH.
--- NOTE | 2017-01-29 07:30 | NUR ---
PT IS RESTING IN A WC IN HER ROOM WAITING FOR BREAKFAST. ALERT AND ORIENTED X 3. DENIES ANY PAIN OR DISCOMFORT AT THIS TIME. 02 IS ON @ 4LPM PER NC. NO SOB NOTED. CALL LIGHT IS IN EASY REACH.
--- NOTE | 2017-01-29 09:34 | NUR ---
RESTING QUIETLY IN BED.
[2017-01-29 10:53] VITALS: BP 132/77
--- NOTE | 2017-01-29 11:30 | NUR ---
PT IS SITTING IN A WC IN HER ROOM GOING THROUGH HER BELONGINGS AND PLACING THEM IN PILES ON HER BED OR THROWING THEM ON THE FLOOR. ITEMS FROM FLOOR PICKED UP. PT DENIES NEEDS.
--- NOTE | 2017-01-29 17:47 | NUR ---
PT IS FEEDING SELF SUPPER IN HER ROOM. NO ACUTE DISTRESS NOTED.
--- NOTE | 2017-01-29 21:10 | NUR ---
PT INCONTINENCE, CHANGE GOWN AND LINENCE.
--- NOTE | 2017-01-29 23:10 | NUR ---
PT SIT UP IN BED DRINK MILK AND WATCH TV.
[2017-01-30 00:29] VITALS: BP 122/73
--- NOTE | 2017-01-30 02:19 | NUR ---
REST QUIETLY IN BED WITH EYE CLOSE, BED LOW, CALL LIGHT WITHIN REACH.
--- NOTE | 2017-01-30 03:13 | NUR ---
PT RESTLESS, PT STATES SHE IS UNABLE TO SLEEP, PT HAS HAD PERIODS OF CONFUSION THIS EVENING, UNWARE OF HER SURROUNDINGS, EASILY SMILES. DENIES PAIN. APPEARS TO HAVE DIFFICULTY WITH TIME OF DAY.
--- NOTE | 2017-01-30 07:12 | NUR ---
RESTING QUIETLY IN BED CALL LIGHT IN REACH
--- NOTE | 2017-01-30 07:30 | NUR ---
ASSISTED PT TO RESTROOM AND GETTING DRESSED. SITTING UP IN WHEELCHAIR. CALL LIGHT IN REACH. ALERT AND ORIENTED X2 REORIENTED TO TIME.
[2017-01-30 08:00] VITALS: BP 99/64
--- NOTE | 2017-01-30 09:30 | NUR ---
PT IN THERAPY
--- NOTE | 2017-01-30 11:30 | NUR ---
PT LYING IN BED EYES CLOSED RESTING QUIETLY. CALL LIGHT IN REACH.
--- NOTE | 2017-01-30 13:40 | NUR ---
PT LYING IN BED HOB 90 DEGREES. VISITING WITH FAMILY CALL LIGHT IN REACH
--- NOTE | 2017-01-30 15:30 | NUR ---
PT IN THERAPY
--- NOTE | 2017-01-30 18:24 | NUR ---
PT LYING IN BED EYES CLOSED RESTING QUIETLY. CALL LIGHT IN REACH.
[2017-01-30 19:00] VITALS: BP 122/74
--- NOTE | 2017-01-30 19:50 | NUR ---
PT REQUESTED TO RETURN TO BED, PT STATES SHE WOULD LIKE MILK, PROVIDED FRESH CARTON OF MILK. PT NEEDED ASSISTANCE TO OPEN CONTAINER. PT FRIENDLY, CONVERSIVE BUT STATES SHE IS LONELY.
--- NOTE | 2017-01-31 00:10 | NUR ---
INCONTINENT OF URINE, CHANGED, PT REQUESTED MILK, PROVIDED MILK. PT STATES SHE NEEDS SOME ATTENTION.
--- NOTE | 2017-01-31 01:00 | NUR ---
PT AWAKE IN ROOM, DEMONSTRATING USE OF CALL LIGHT MULTIPLE TIMES. PT REQUESTS THAT SOMEONE JUST STAY WITH HER. PT DENIES FEELING WET FROM INCONTINENCE OR THAT SHE CAN FEEL THE URGE TO VOID. ASSURED PATIENT THAT STAFF WERE AWAKE AND AVAILABLE TO HELP HER.
--- NOTE | 2017-01-31 04:35 | NUR ---
PT RESTING QUIELTY, EYES CLOSED, RESPIRATIONS REGULAR AND UNLABORED, NO S/S OF ACUTE DISTRESS.
[2017-01-31 07:30] VITALS: BP 135/77
--- NOTE | 2017-01-31 07:35 | NUR ---
ASSISTED TO RESTROOM AND DRESSING. SITTING UP IN WHEELCHAIR. ALERT AND ORIENTED X3. CALL LIGHT IN REACH.
--- NOTE | 2017-01-31 09:58 | NUR ---
PT IN THERAPY
--- NOTE | 2017-01-31 12:00 | NUR ---
SITTING UP IN WHEELCHAIR WATCHING TV QUIETLY. NO CONCERNS VOICED AT THIS TIME. CALL LIGHT AND BEDSIDE TABLE IN REACH.
--- NOTE | 2017-01-31 14:37 | NUR ---
LYING IN BED EYES CLOSED RESTING QUIETLY. CALL LIGHT IN REACH
--- NOTE | 2017-01-31 16:11 | NUR ---
PT IN THERAPY
--- NOTE | 2017-01-31 19:40 | NUR ---
ASSISTED PATIENT UP TO BR FROM W/C. WHILE THERE PATIENT URINATED. CHANGED HER BRIEF DUE TO MODERATE URINE INCONTINENCE, AND THEN RETURNED HER TO BED.
--- NOTE | 2017-01-31 19:40 | NUR ---
PT INCONTINENCE, CHANGE LINEN AND GOWN.
[2017-01-31 20:00] VITALS: BP 120/73
--- NOTE | 2017-01-31 21:10 | NUR ---
PT STATE: LIKE TO DRINK MILK BEFORE GO TO SLEEP, BRING MILK FOR PT.
--- NOTE | 2017-02-01 07:15 | NUR ---
LYING IN BED WATCHING TV QUIETLY. NO CONCERNS VOICED. STILL ON 2L VIA NC. CALL LIGHT IN REACH
[2017-02-01 09:11] VITALS: BP 110/74
--- NOTE | 2017-02-01 09:15 | NUR ---
SITTING UP IN CHAIR O2 ON 2L VIA NASAL CANULA AND CALL LIGHT IN REACH. ALERT AND ORIENTED X3. PT VERBALIZES THAT SHE IS READY TO GO HOME.
--- NOTE | 2017-02-01 11:15 | NUR ---
SITTING UP IN WHEELCHAIR VISITING FAMILY. DAUGHTER LAZ STATES SHE WOULD LIKE TO ATTEND MEETING TODAY, ELE WAS NOTIFIED. CALL LIGHT IN REACH.
--- NOTE | 2017-02-01 13:30 | NUR ---
UP IN WC.DENIES NEEDS.
--- NOTE | 2017-02-01 13:30 | NUR ---
IN GYM WITH PHYSICAL THERAPY TOLERATING WELL
--- NOTE | 2017-02-01 15:12 | NUR ---
WALKING IN HALLWAY WITH PHYSICAL THERAPIST, TOLERATING WELL
--- NOTE | 2017-02-01 17:07 | NUR ---
SITTING UP IN WHEELCHAIR VISITING WITH FAMILY. OXYGEN STILL ON 2L VIA NASAL CANULA. PLEASANT AFFECT. NO CONCERNS VOICED AT THIS TIME. CALL LIGHT IN REACH
--- NOTE | 2017-02-01 19:00 | NUR ---
PATIENT UP IN W/C. ASSISTED HER UP TO BR TO CLEANSE AND CHANGE FROM URINE INCONTINENCE IN HER BRIEF, WELL URINATING IN COMMODE. RETURNED HER TO BED. DENIES CURRENT NEEDS.
--- NOTE | 2017-02-01 21:40 | NUR ---
IN BED, RESTING QUIETLY, EYES CLOSED.
[2017-02-02 00:10] VITALS: BP 124/67
--- NOTE | 2017-02-02 00:10 | NUR ---
IN BED, AWAKE. CLEANSED AND CHANGED PATIENT FROM VERY LARGE URINE INCONTINENCE DURING SLEEP. DIFFICULT TO OBTAIN PULSEOX FROM FINGERS DUE TO IMPAIRED CIRCULATION AND COOL TEMP. FREDY FROM R/T OBTAINED PULSEOX OF 95% ON 2L PER N/C WITH PULSE OF 95 BPM. PATIENT IN NO DISTRESS. WANTED TO GET UP FOR THE DAY. REMINDED HER OF THE EARLY HOUR. TOOK HS MEDS WITHOUT DIFFICULTY.
--- NOTE | 2017-02-02 01:08 | NUR ---
PT UP TO BR VIA WC WITH ASSISTANCE, PT TO COMMODE, VOIDED BY SELF WITH NO DIFFICULTY, CLEAN PAIR OF ADULT UNDERWEAR PLACED ON, PT BACK TO BED, REQUESTED AND SERVED FRESH H20, DENIES FURTHER NEEDS, BED IN LOW POSITION, SIDE RAILS X 2, CALL LIGHT IN REACH, BED ALARM ON AND WORKING PROPERLY
--- NOTE | 2017-02-02 02:40 | NUR ---
RESTING QUIETLY IN BED, EYES CLOSED.
--- NOTE | 2017-02-02 06:15 | NUR ---
CLEANSED AND CHANGED PATIENT FROM LARGE URINARY INCONTINENCE. GAVE HER SCHEDULED DOSE OF [place]STATIN SWISH AND SWALLOW. DENIES NEEDS.
--- NOTE | 2017-02-02 07:10 | NUR ---
SITTING UP IN BED WATCHING TV. ALERT AND ORIENTED TO PERSON, PLACE, AND SITUATION ORIENTED TO DATE AND TIME. PLEASANT AFFECT. DENIES NEEDS. CALL LIGHT IN REACH
[2017-02-02] MEDS ORDERED: ARICEPT5 MG PO (09:03)
[2017-02-02 09:11] VITALS: BP 123/72
--- NOTE | 2017-02-02 09:30 | NUR ---
SITTING UP IN BED DRINKING COFFEE. OXYGEN STILL ON 2L VIA NC. CALL LIGHT IN REACH
--- NOTE | 2017-02-02 10:33 | NUR ---
PATIENT DISCHARGING HOME TODAY WITH FAMILY. MARIE AT HOME WILL RESUME CARE. NO NEW DME NEEDED AT THIS TIME. DR. HOGAN 02/21/17 @ 2:20. PATIENT CHOICE FORM FOR HOME HEALTH AND [facility] FORM SIGNED, EXPLAINED AND FILED IN CHART. ORDERS HAVE BEEN FAXED WITH CONFORMATION RECIEVED
--- NOTE | 2017-02-02 10:51 | NUR ---
WOUND CARE REASSESSMENT: RIGHT HEEL. SKIN REMAINS INTACT WITHOUT DRAINAGE OR REDNESS. WOUND CARE WILL CONTINUE TO MONITOR.
--- NOTE | 2017-02-02 11:18 | NUR ---
SITTING UP IN WHEELCHAIR. CALL LIGHT IN REACH.
--- NOTE | 2017-02-02 12:00 | NUR ---
UP IN WC.PLAN FOR DC HOME.
== END 2017-02-02 13:00 | disposition home health service (06) | DRG 70 ==
LOC: D.REHAB 16:44
PROVIDERS: ADMIT Emergency Medicine
DX: G93.41 Metabolic encephalopathy (principal); I26.99 Other pulmonary embolism without acute cor pulmonale; N39.0 Urinary tract infection, site not specified; E87.1 Hypo-osmolality and hyponatremia; R13.11 Dysphagia, oral phase; G30.9 Alzheimer's disease, unspecified; F02.80 Dementia in other diseases classified elsewhere, unspecified severity, without behavioral disturbance, psychotic disturbance, mood disturbance, and anxiety; E87.6 Hypokalemia; E86.0 Dehydration; J44.9 Chronic obstructive pulmonary disease, unspecified; E11.9 Type 2 diabetes mellitus without complications; F31.9 Bipolar disorder, unspecified; E78.5 Hyperlipidemia, unspecified; F17.200 Nicotine dependence, unspecified, uncomplicated; Z85.118 Personal history of other malignant neoplasm of bronchus and lung

== ENCOUNTER 2017-02-10 14:12 | Inpatient (IN) | payer MEDICARE, OTHER ==
[~2017-02-10] VITALS: Ht 157.5 cm; Wt 52.3 kg
[~2017-02-10 14:12] MED LIST changes: +ARICEPT5 MG PO
--- NOTE | 2017-02-10 18:09 | NUR ---
RECEIVED PT VIA WHEELCHAIR FROM ER STAFF MEMBER. DAUGHTER IS AT BEDSIDE. WILL ADMIT PT AND CONTINUE TO MONITOR.
[2017-02-10 18:14] VITALS: BP 111/53; BMI 22.0
--- NOTE | 2017-02-10 18:40 | NUR ---
QUICKSTART DONE, ADMISSION ASSESSMENT DONE, AND ADMISSION HISTORY DONE. PT IS CURRENTLY SITTING UP IN BED WITH EYES OPEN RESTING. DAUGHTER IS AT BEDSIDE. BED IS IN LOW POSITION, SIDE RAILS ARE UP X2, CALL LIGHT IS IN REACH, AND NON-SKID SOCKS ARE ON. WILL CONTINUE TO MONITOR.
[2017-02-10 19:00] VITALS: BP 144/56
--- NOTE | 2017-02-10 19:20 | NUR ---
RECEIVED REPORT, WILL ASSUME CARE OF PT, FAMILY IN ROOM, BED IS LOW, SRX2, BED ALARM IS ON, CALL LIGHT IN REACH, WILL CONTINUE PLAN OF CARE
[2017-02-11 04:00] VITALS: BP 102/55
--- NOTE | 2017-02-11 07:00 | NUR ---
RECEIVED REPORT. ASSUMED CARE OF PATIENT. CALL LIGHT WITHIN REACH. PATIENT IS ALERT TO NAME BUT DISORIENTED. PATIENT TALKING ABOUT VARIETY OF SUBJECTS IN SHORT AMOUNT OF TIME NOT MAKING A LOT OF SENSE. NOT WORD SALAD, SWITCHING SUBJECTS QUICKLY. RESP EVEN AND UNLABORED. NO DISTRESS.
[2017-02-11 08:00] VITALS: BP 129/64; BP 156/54
[2017-02-11 12:00] VITALS: BP 122/64
--- NOTE | 2017-02-11 12:33 | NUR ---
DAUGHTER HERE AT BEDSIDE REQUESTING PSYCH EVAL FOR HER MOM. PATIENT THINKS SHE IS IN HOTEL AND VERY DEMANDING. PATIENT IS HOARDING ITEMS IN HER ROOM - FOOD, DIRTY DIAPERS, CUPS, ETC. 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 DIFFICULT TO PROVIDE PATIENT WITH CARES. PATIENT UNABLE TO HOLD INTELLIGENT CONVERSATION. PATIENT JUMPS FROM SUBJECT TO SUBJECT VERY QUICK AND RANDOMLY. PATIENT IS REQUESTING THAT FAMILY BRING THE PICK TO DO RECYCLING. ALSO TO STOP AND BRING THE BAT MOBILE WITH IS A RED CORVETTE AND THE GENIUS CENTRAL SYSTEMS ESCALADE. PATIENT ALSO STATING THAT SHE CONSUMES LIQUIDS ONLY AT BREAKFAST AND LONG LIST OF ITEMS. LAST REQUEST MADE BY PATIENT WAS TO LEAVE BATHROOM DOOR OPEN AT ALL TIMES SO SHE CAN SEE WHOM IS IN THERE. RESP EVEN AND UNLABORED. NO ACUTE DISTRESS TO PATIENT.
[2017-02-11 14:54] VITALS: Ht 157.5 cm; Wt 52.3 kg
[2017-02-11 16:00] VITALS: BP 137/75
--- NOTE | 2017-02-11 16:00 | NUR ---
FSBS 240. 4 UNITS HUMALOG ADMINISTERED PER SLIDING SCALE. NO DISTREES
--- NOTE | 2017-02-11 16:40 | NUR ---
PATIENT ASSISTED TO WHEELCHAIR AND ALLOWED PATIENTS GRAPHOTYPE OPERATOR TO WHEEL PATIENT AROUND UNIT. PATIENTS BEHAVIORS ARE UNACCEPTABLE AT THIS TIME, PATIENT HOLLORING AND THROWING ITEMS ON FLOOR. PATIENTS CAREGIVER STATES THAT IT WILL BE BEST IF PATIENT WAS ABLE TO LEAVE THE ROOM FOR A LITTLE BIT.
--- NOTE | 2017-02-11 17:15 | NUR ---
PATIENT RETURNED TO ROOM WITH BULK TANK CAR UNLOADER. PATIENT IN BETTER MOOD. PATIENT IS MORE COOPERATIVE. ASSISTED PATIENT INTO BED AND SET MEAL TRAY UP AT THIS TIME. TOLERATING IV ABX WELL. NO DISTRESS.
--- NOTE | 2017-02-11 19:25 | NUR ---
RECEIVED REPORT, WILL ASSUME CARE OF PT, WATCHING TV, BED IS LOW, SRX2, CALL LIGHT IN REACH, WILL CONTINUE PLAN OF CARE
[2017-02-11 20:00] VITALS: BP 139/80
--- NOTE | 2017-02-12 00:13 | NUR ---
ASSESSMENT COMPLETE, SEE FLOWSHEET, PT IS RESTING, NO DISTRESS NOTICED, BED IS LOW, SRX3, BED ALARM IS ON, CALL LIGHT IN REACH, WILL CONTINUE PLAN OF CARE
[2017-02-12 04:00] VITALS: BP 137/75
[2017-02-12 05:55] LABS: BASOPHILS 0 % (0-2); EOSINOPHILS 0 % (0-7); HEMATOCRIT 44.1 % (36.0-48.0); HEMOGLOBIN 13.7 g/dL (12-16); IMMATURE GRANULOCYTES 0.2 % (0-5); LYMPHOCYTES 2.3 % (15-50); MCH 29.7 pg (26.0-34.0); MCHC 31.1 g/dL (31.0-37.0); MCV 95.7 fL (80.0-100.0); MEAN PLATELET VOLUME 10.9 fL (7.4-10.4); MONOCYTES 2.2 % (2-11); NEUTROPHILS 95.3 % (40-80); RBC 4.61 10x6/uL (4.00-5.40); RDW 14.7 % (11.5-14.5); WBC 16.2 10x3/uL (4.8-10.8)
[2017-02-12 05:57] LABS: PLATELET COUNT 201 10x3/uL (130-400)
[2017-02-12 06:10] LABS: ANION GAP 12.4 mmol/L (8-16); CALCIUM 9.3 mg/dL (8.5-10.1); CREATININE - SERUM 0.8 mg/dL (0.6-1.3); POTASSIUM - SERUM 4.4 mmol/L (3.5-5.1)
--- NOTE | 2017-02-12 07:00 | NUR ---
RECEIVED REPORT. ASSUMED CARE OF PATIENT. CALL LIGHT WITHIN REACH. PATIENT ALERT/CONFUSED TO YEAR. PATIENT RESP EVEN AND UNLABORED. PATIENT REQUESTING BUNGY STRAPS BUT WILL NOT GIVE REASON TO WHY SHE WANTS THEM. RESP EVEN AND UNLABORED. NO DISTRESS.
[2017-02-12 08:00] VITALS: BP 132/77
[2017-02-12 11:35] VITALS: BP 119/64
--- NOTE | 2017-02-12 11:45 | NUR ---
FSBS 261. 6 UNITS HUMALOG ADMINISTERED PER SLIDING SCALE ORDERED.
[2017-02-12 15:43] VITALS: BP 113/67
--- NOTE | 2017-02-12 16:57 | NUR ---
FSBS 355. 10 UNITS HUMALOG ADMINISTERED PER SLIDING SCALE ORDERED.
--- NOTE | 2017-02-12 19:38 | NUR ---
RECEIVED REPORT, WILL ASSUME CARE OF PT, SURVEYOR MINE ARE CLEANING HER UP, PT DENIES ANY NEEDS, BED IS LOW, SRX2, CALL LIGHT IN REACH, WILL CONTINUE PLAN OF CARE
[2017-02-12 20:00] VITALS: BP 114/65
--- NOTE | 2017-02-12 20:41 | NUR ---
BLOODSUGAR 143- NO COVERAGE PER SCALE, GAVE 0.5MG ATIVAN, WILL MONITOR
--- NOTE | 2017-02-13 03:59 | NUR ---
ASSESSMENT COMPLETE, SEE FLOWSHEET, BATH/BED, BED IS LOW, SRX2, CALL LIGHT IN REACH, WILL CONTINUE PLAN OF CARE
[2017-02-13 04:00] VITALS: BP 130/76
[2017-02-13 04:32] LABS: BASOPHILS 0 % (0-2); EOSINOPHILS 0 % (0-7); HEMATOCRIT 46.1 % (36.0-48.0); HEMOGLOBIN 14.3 g/dL (12-16); IMMATURE GRANULOCYTES 0.3 % (0-5); LYMPHOCYTES 2.6 % (15-50); MCH 29.9 pg (26.0-34.0); MCV 96.4 fL (80.0-100.0); MEAN PLATELET VOLUME 10.5 fL (7.4-10.4); NEUTROPHILS 95.1 % (40-80); PLATELET COUNT 204 10x3/uL (130-400); RBC 4.78 10x6/uL (4.00-5.40); RDW 14.8 % (11.5-14.5); WBC 13.3 10x3/uL (4.8-10.8)
[2017-02-13 04:50] LABS: ANION GAP 14.2 mmol/L (8-16); CALCIUM 9.4 mg/dL (8.5-10.1); CARBON DIOXIDE 29.7 mmol/L (21.0-32.0); CREATININE - SERUM 0.8 mg/dL (0.6-1.3); POTASSIUM - SERUM 4.9 mmol/L (3.5-5.1)
--- NOTE | 2017-02-13 08:00 | NUR ---
INTRODUCED MYSELF TO PT PRIMARY RN FOR TODAYS SHIFT. SHIFT ASSESSMENT COMPLETED. PT VERY TALKATIVE AND PLESANT. PT IS A&O BUT STATES "I HAVE BIPOLAR DISORDER AND GO CRAZY SOMETIMES" PT VERY ENTHUASTIC ABOUT IT AND BEING COOPERATIVE AT THIS TIME. PT JUST REC'D BATH FROM RESEARCH & ANALYTICS MANAGER AND STATES IT FELT VERY NICE. PT SITTING UP IN BED EATING BREAKFAST AND WATCHING TV AT THIS TIME. CALL LIGHT IN REACH, BED IN LOWEST, SIDE RAILS X2 AND BUILT IN BED ALARM ON. WILL CPOC.
[2017-02-13 08:40] VITALS: BP 147/77
--- NOTE | 2017-02-13 11:04 | NUR ---
FSBS 238 PT REC'D 4 UNITS PER SS INSULIN. PT SITTING UP IN BED MESSING WITH ALL HER STUFF IN HER PURSE AND JUST KEEPING HERSELF OCCUPIED. PT DENIES ANY PAIN OR NEEDS. CL IN REACH, BED IN LOWEST, SIDE RAILS X2. WILL CPOC.
--- NOTE | 2017-02-13 11:30 | NUR ---
BEDSIDE REPORT GIVEN TO RN NAHEED ESTRELLA WHO WILL BE TAKING OVER CARE FOR THIS PT. PT RESTING AND DENIES ANY NEEDS AT THIS TIME.
--- NOTE | 2017-02-13 11:44 | NUR ---
PT RESTING QUIETLY. INTRODUCED SELF RN FOR THE REST OF THE DAY. PT EXPRESSES AN ENTHUSIASTIC MOOD AND DENIES OTHER NEEDS AT THIS TIME. BED IN LOWEST POSTION, CALL LIGHT IN REACH, FLOOR FREE FROM CLUTTER. WILL CTM.
[2017-02-13 12:39] VITALS: BP 142/83
--- NOTE | 2017-02-13 14:24 | NUR ---
Patient Name: LALIT OROZCO Admission Status: ER Accout number: [id number] Admission Date: 02-10-2017 : 1935 Admission Diagnosis: Attending: POOL Current LOS: 3 Anticipated DC Date: Planned Disposition: Home Primary Insurance: MEDICARE A & B Discharge Planning Comments: CM MET WITH PATIENT TO DISCUSS DISHCARGE PLANNING/NEEDS. PATIENT IS VERY SPORATIC AND REQUIRED LOTS OF REDIRECTING TO COMPLETE ASSESSMENT. SHE STATED THAT SHE LIVES AT HOME WITH HER DAUGHTER AND ANOTHER PERSON (NO NAME GIVEN TO THE OTHER PERSON). SHE SAID THAT SHE HAS [facility] THAT COMES IN AND HELPS TAKE CARE OF HER. SHE HAS MULTIPLE PIECES OF MEDICAL EQUIPMENT AND DENIES THEN NEED FOR ANY MORE. AT DISCHARGE, SHE IS PLANNING ON RETURNING HOME WITH HER DAUGHTER. SHE STATED THAT HER DAUGHTER WOULD TAKE HER HOME. CM WILL CONTINUE TO FOLLOW AND ASSIST NEEDED. Fretted Instrument Maker Hand: Anika Levar Is the patient Alert and Oriented? Yes * How many steps to enter\exit or inside your home? 0 * PCP DR HOGAN * Pharmacy [facility] * Preadmission Environment Home with Family * ADLs Independent * Equipment Cane Nebulizer Oxygen Shower Chair Wheelchair * Other Equipment SHILA CHAIR * List name and contact numbers for known caregivers / representatives who currently or will assist patient after discharge: LAZ GONZALEZ, DAUGHTER [phone] * Community resources currently utilized Private Duty Care * Please name any agencies selected above. PATIENT HAS [facility]. [facility] SUPPLIES HER OXYGEN AND RESPIRATORY MEDICATION NEEDS. SHE SAID SHE MAY CHANGE TO THEM FOR EVERYTHING BECAUSE THEY DELIVER. * Additional services required to return to the preadmission environment? No * Can the patient safely return to the preadmission environment? Yes * Has this patient been hospitalized within the prior 30 days at any hospital? No
[2017-02-13 16:51] VITALS: BP 123/54
[2017-02-13 19:00] VITALS: BP 114/57
--- NOTE | 2017-02-13 19:42 | NUR ---
PT RESTING IN BED. C/O BEING HUNGRY. WANTS A BOOST OR ENSURE. WILL CHECK TO GET PT WHAT SHE NEEDS. PT ON 3L O2 NC. NO S/S OF DISTRESS. DENIES ANY OTHER NEEDS. WILL CONTINUE TO MONITOR
[2017-02-14] VITALS: BP 131/64
[2017-02-14 04:00] VITALS: BP 113/68
[2017-02-14 05:40] LABS: BASOPHILS 0 % (0-2); EOSINOPHILS 0 % (0-7); HEMOGLOBIN 13.9 g/dL (12-16); IMMATURE GRANULOCYTES 0.3 % (0-5); LYMPHOCYTES 3.8 % (15-50); MCHC 31.6 g/dL (31.0-37.0); MEAN PLATELET VOLUME 10.6 fL (7.4-10.4); MONOCYTES 3.5 % (2-11); NEUTROPHILS 92.4 % (40-80); PLATELET COUNT 200 10x3/uL (130-400); RBC 4.63 10x6/uL (4.00-5.40); RDW 14.6 % (11.5-14.5); WBC 11.3 10x3/uL (4.8-10.8)
[2017-02-14 06:01] LABS: CALC OSMOLALITY 288 mosm/kg (275-300); CALCIUM 9.3 mg/dL (8.5-10.1); CARBON DIOXIDE 32.7 mmol/L (21.0-32.0); CHLORIDE - SERUM 99 mmol/L (98-107); CREATININE - SERUM 0.6 mg/dL (0.6-1.3); GLUCOSE 278 mg/dL (74-106); POTASSIUM - SERUM 4.8 mmol/L (3.5-5.1); SODIUM 137 mmol/L (136-145); UREA NITROGEN 26 mg/dL (7-18); eGFR NON AFRICAN AMERICAN > 90 mL/min (90-120)
--- NOTE | 2017-02-14 06:59 | NUR ---
PT IN BED RESTING/ NO S/S OF DISTRESS. PT DENIES ANY NEEDS. WILL CONTINUE TO MONITOR
--- NOTE | 2017-02-14 07:10 | NUR ---
RECEIVED REPORT. ASSUMED CARE OF PATIENT. CALL LIGHT WITHIN REACH. PATIENT ALERT/ORIENTED BUT ASKING FOR CUPS TO PLACE HER BELONGINGS IN THIS MORNING. RESP EVEN AND UNLABORED. NO IV SITE. NO DISTRESS. DENIES PAIN.
[2017-02-14 08:23] VITALS: BP 150/71
--- NOTE | 2017-02-14 12:22 | NUR ---
FSBS 179. 2 UNITS HUMALOG ADMINISTERED PER SLIDING SCALE.
[2017-02-14 12:40] VITALS: BP 110/57
--- NOTE | 2017-02-14 15:00 | NUR ---
22 GAUGE IV PLACED TO RIGHT FOREARM X 1 STICK. GOOD BLOOD RETURN, EASY FLUSH. TAPED, DATED AND SECURED. TOLERATED IV PLACEMENT WELL. NO DISTRESS.
[2017-02-14 16:15] VITALS: BP 150/78
--- NOTE | 2017-02-14 16:50 | NUR ---
INCONTINENT CARE PROVIDED. INSULIN COVERAGE PROVIDED PER SLIDING SCALE AT THIS TIME. NO DISTRESS.
[2017-02-14 19:00] VITALS: BP 151/92
--- NOTE | 2017-02-14 19:22 | NUR ---
PT UP IN CHAIR. 3L O2 VIA NC. NS INFUSING TO RIGHT FOREARM IV AT 30ML/HR. PT DENIES ANY PAIN. DENIES ANY NEEDS. NO S/S OF DISTRESS. WILL CONTINUE TO MONITOR
[2017-02-15] VITALS: BP 141/89
--- NOTE | 2017-02-15 01:08 | NUR ---
PT IN BED RESTING. RESPIRATIONS EVEN AND UNLABORED. NO S/S OF DISTRESS. WILL CONTINUE TO MONITOR
[2017-02-15 04:00] VITALS: BP 139/91
--- NOTE | 2017-02-15 04:59 | NUR ---
PT SLEEPING. RESPIRATIONS EVEN AND UNLABORED. NO S/S OF DISTRESS WILL CONTINUE TO MONITOR
[2017-02-15 05:35] LABS: BASOPHILS 0 % (0-2); EOSINOPHILS 0 % (0-7); HEMATOCRIT 47.1 % (36.0-48.0); HEMOGLOBIN 15.3 g/dL (12-16); IMMATURE GRANULOCYTES 0.5 % (0-5); LYMPHOCYTES 11.8 % (15-50); MCH 30.4 pg (26.0-34.0); MCHC 32.5 g/dL (31.0-37.0); MCV 93.6 fL (80.0-100.0); MEAN PLATELET VOLUME 10.7 fL (7.4-10.4); MONOCYTES 9.7 % (2-11); PLATELET COUNT 204 10x3/uL (130-400); RBC 5.03 10x6/uL (4.00-5.40); RDW 14.4 % (11.5-14.5); WBC 11.5 10x3/uL (4.8-10.8)
[2017-02-15 05:53] LABS: ANION GAP 14.5 mmol/L (8-16); CALCIUM 9.4 mg/dL (8.5-10.1); CARBON DIOXIDE 30.1 mmol/L (21.0-32.0); MAGNESIUM - SERUM 1.7 mg/dL (1.8-2.4); PHOSPHOROUS 3.8 mg/dL (2.5-4.9); POTASSIUM - SERUM 4.6 mmol/L (3.5-5.1)
[2017-02-15 06:05] LABS: CREATININE - SERUM 0.8 mg/dL (0.6-1.3)
--- NOTE | 2017-02-15 07:55 | NUR ---
AM ROUNDING- RECEIVED REPORT FROM DEPARTMENT COORDINATOR NURSE ELIO. PT IS CURRENTLY SITTING UP IN CHAIR. ON 02 AT 3L VIA NC. NO MONITOR. IV SEEN TO RIGHT FOREARM WITH NS RUNNING AT 30CC. PT IS ALERT. CALL LIGHT IS IN REACH. NO NEED AT CURRENT TIME. WILL CONTINUE TO MONITOR AND CONTINUE WITH PLAN OF CARE.
[2017-02-15 08:00] VITALS: BP 151/87
[2017-02-15 12:00] VITALS: BP 141/69
[2017-02-15] MEDS ORDERED: RISPERDAL0.5 MG PO (13:38)
[2017-02-15] MEDS ORDERED: NICODERM C1 PATCH .2 TRANSDERM (13:38)
[2017-02-15] MEDS ORDERED: SINGULAIR10 MG PO (13:40)
[2017-02-15] MEDS ORDERED: SYMBICORT 16010.2 GM INH (13:40)
[2017-02-15] MEDS ORDERED: PREDNISONE10 MG PO (13:42)
[2017-02-15] MEDS ORDERED: OMNICEF300 MG PO (13:43)
--- NOTE | 2017-02-15 14:46 | NUR ---
CALLED PTS DAUGHTER TO INFORM HER THAT PT IS BEING D/C. PTS DAUGHTER STATES SHE WILL BE HERE IN A MINUTE SHE IS PULLING INTO HOSPITAL NOW.
[2017-02-15 16:00] VITALS: BP 115/60
--- NOTE | 2017-02-15 17:00 | NUR ---
Patient Name: LALIT OROZCO Encounter No: [id number] : 1935 Primary Insurance: MEDICARE A & B Anticipated DC Date: 02-15-2017 Planned Disposition: Inpatient Psych Facility External Planned Provider: [facility] follow-up note: CM RECIEVED DISCHARGE ORDER, MET WITH PT IN ROOM WHO REPORTS SHE IS READY TO GO HOME TODAY, HER DAUGHTER WILL BE HERE LATER TO PICK HER UP. PT REPORTS HAVING CAREGIVER FROM [place] AND REPORTS SHE NEEDS ABSOLUTELY NOTHING ELSE. 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 PT'S DAUGHTER ARRIVED AND REPORTS THAT PT IS STILL TALKING OUT OF HER HEAD AND SHE HAD LITTLE NOTICE OF DISCHARGE. PT'S DAUGHTER REPORTS HAVING CAREGIVERS FROM [facility] TO SIT WITH PT DURING THE DAY WHEN DAUGHTER IS AT WORK, DAUGHTER IS WITH PT ALL NIGHT. PT'S DAUGHTER WOULD LIKE PT TO BE KEPT FOR FURTHER MENTAL EVALUATION AND WOULD LIKE PT BACK IN INPATIENT REHAB IF POSSIBLE. CM DISCUSSED ALL REHAB OPTIONS TO INCLUDE ALF, HOME HEALTH AND OUTPATIENT REHAB SERVICES. CM EXPLAINED THAT INPATIENT REHAB IS FOR MEDICAL ISSUES WITH REHAB NEEDS; CM CALLED INPATIENT REHAB AT [facility] OF DAUGHTER, WAS ADVISED BY SUZANNE THAT THEY WOULD NOT ACCEPT PT BACK HER CURRENT DIAGNOSIS IS NOT APPROPRIATE. SUZANNE SUGGESTED THAT IF PT NEEDS [facility], ALF WOULD BE RECOMMENDED. CM CALLED [facility], DISCUSSED SITUATION; [facility] REPORTS AGREEMENT WITH [facility] CONSULT. CM DISCUSSED WITH PT'S DAUGHTER WHO REQUESTED CONSULT TO [facility]. ORDER RECEIVED, CM CALLED [facility], NOTIFIED OF CONSULT AND FAXED ORDER AND FACE SHEET TO [facility]. CM NOTIFIED PT AND DAUGHTER IN ROOM, PROVIDED AND DISCUSSED IMPORTANT MESSAGE FROM MEDICARE WITH PT'S DAUGHTER. PT'S DAUGHTER REPORTS AGREEMENT WITH DISCHARGE TO [facility] TONIGHT IF ACCEPTED. CM WAITING RESULT OF [facility] EVALUATION. Oli Bates, CASE MANAGEMENT
--- NOTE | 2017-02-15 17:07 | NUR ---
PT IS CURRENTLY SITTING UP IN CHAIR. FAMILY MEMBERS ARE AT BEDSIDE. PT DENIES ANY PAIN OR NEED AT CURRENT TIME. WILL CONTINUE TO MONITOR.
[2017-02-15 19:00] VITALS: BP 168/82
--- NOTE | 2017-02-15 19:07 | NUR ---
PT RESTING IN BED. STATES "SHE IS CLEANED UP AND HAD A BATH SHE IS HAPPY" PT DENIES ANY NEEDS. NO S/S OF DISTRESS WILL CONTINUE TO MONITOR
[2017-02-16] VITALS: BP 160/80
--- NOTE | 2017-02-16 03:06 | NUR ---
PT SLEEPING. NS INFUSING TO RIGHT FOREARM IV UNHOOKED AND FLUSHED. IV PATENT ALCHOL SWAB CAP APPLIED. DRESSING CLEAN DRY AND INTACT. PTS RESPIRATIONS EVEN AND UNLABORED. NO S/S OF DISTRESS WILL CONTINUE TO MONITOR
[2017-02-16 04:34] VITALS: BP 137/76
[2017-02-16 06:01] LABS: BASOPHILS 0 % (0-2); EOSINOPHILS 0.4 % (0-7); HEMATOCRIT 47.1 % (36.0-48.0); IMMATURE GRANULOCYTES 0.4 % (0-5); LYMPHOCYTES 16.9 % (15-50); MCH 30.1 pg (26.0-34.0); MCHC 31.8 g/dL (31.0-37.0); MCV 94.6 fL (80.0-100.0); MEAN PLATELET VOLUME 10.6 fL (7.4-10.4); MONOCYTES 9.9 % (2-11); NEUTROPHILS 72.4 % (40-80); PLATELET COUNT 192 10x3/uL (130-400); RBC 4.98 10x6/uL (4.00-5.40); RDW 14.4 % (11.5-14.5); WBC 9.5 10x3/uL (4.8-10.8)
[2017-02-16 06:15] LABS: CALC OSMOLALITY 288 mosm/kg (275-300); CALCIUM 9.4 mg/dL (8.5-10.1); CARBON DIOXIDE 33.2 mmol/L (21.0-32.0); CHLORIDE - SERUM 103 mmol/L (98-107); CREATININE - SERUM 0.7 mg/dL (0.6-1.3); POTASSIUM - SERUM 4.3 mmol/L (3.5-5.1); SODIUM 141 mmol/L (136-145); UREA NITROGEN 29 mg/dL (7-18); eGFR NON AFRICAN AMERICAN 85 mL/min (90-120)
[2017-02-16 06:18] LABS: GLUCOSE 130 mg/dL (74-106)
--- NOTE | 2017-02-16 06:59 | NUR ---
PT UP IN CHAIR. INFORMED PT THAT MY SHIFT IS OVER. PT DENIES ANY NEEDS
--- NOTE | 2017-02-16 08:00 | NUR ---
0715- AM ROUNDING- RECEIVED REPORT FROM BIOMEDICAL INSTRUMENT TECHNICIAN NURSE ELIO. PT IS CURRENTLY SITTING UP IN CHAIR. PT STATES " I FEEL SO GOOD I COULD FLY AWAY, WITH ABEL CHILDRESS". ON 02 AT 3L VIA NC. NO MONITOR. IV SEEN TO RIGHT FOREARM THAT IS CURRENTLY SALINE LOCKED. BED BOX ALARM IS ON AND ATTATCHED TO PT. NO NEED AT CURRENT TIME. WILL CONTINUE TO MONITOR AND CONTINUE WITH PLAN OF CARE.
[2017-02-16 08:19] VITALS: BP 148/71
[2017-02-16 12:06] VITALS: BP 132/73
--- NOTE | 2017-02-16 13:39 | NUR ---
Patient Name: LALIT OROZCO Encounter No: [id number] : 1935 Primary Insurance: MEDICARE A & B Anticipated DC Date: 02-15-2017 Planned Disposition: Inpatient Psych Facility External Planned Provider: [facility] DC follow-up note: CM RECEIVED CALL FROM [facility], DR. HERNANDEZ ACCEPTS PT, [facility] NURSE WILL CALL BEDSIDE NURSE WHEN READY FOR REPORT AFTER 1PM. CM CALLED PT'S DAUGHER, LAZ GONZALEZ, [phone], DISCUSSED DISCHARGE ORDER AND ACCEPTANCE FROM DR. HERNANDEZ. LAZ REPORTS APPRECIATION FOR EVERYTHING THAT HAS BEEN DONE AND IS NOT SO CONCERNED ABOUT THE "CRAZY TALK" BUT OF PT'S HOARDING OF TRASH AT HOME. LAZ WANTS TO TALK TO HER MOTHER (PT) AND MAKE SURE IT IS OK WITH PT BEFORE CONSENTING TO DISCHARGE TO [facility] TODAY. LAZ TO CALL PT NOW AND NOTIFY CM IN A FEW MINUTES. [facility] AND BEDSIDE NURSE NOTIFIED. [facility] TO ACCEPT PT TODAY; CM WAITING ON PT'S DAUGHTER TO SPEAK TO PT AND CALL CM WITH DECISION TO ADMIT TO [facility] TODAY. Oli Bates, CASE MANAGEMENT
--- NOTE | 2017-02-16 16:03 | NUR ---
D/C - WRITTEN AND VERBAL INSTRUCTIONS GIVEN TO PT'S DAUGHTER. IV TO LEFT HAND D/C, CATH TIP INTACT. PT TOLERATED WELL. PT'S DAUGHTER IS PACKING THINGS AND TRANSPORTING TO CAR. WILL D/C
--- NOTE | 2017-02-16 16:22 | NUR ---
PT LEFT FLOOR VIA WHEELCHAIR WITH DAUGHTER AND DELINQUENCY PREVENTION SOCIAL WORKER.
== END 2017-02-16 16:30 | disposition home or self-care (01) | DRG 191 ==
LOC: D.ER 14:12 → D.M2 16:51
PROVIDERS: ADMIT Family Medicine
DX: J44.1 Chronic obstructive pulmonary disease with (acute) exacerbation (principal); F17.203 Nicotine dependence unspecified, with withdrawal; F02.81 Dementia in other diseases classified elsewhere, unspecified severity, with behavioral disturbance; F31.10 Bipolar disorder, current episode manic without psychotic features, unspecified; J84.9 Interstitial pulmonary disease, unspecified; E11.65 Type 2 diabetes mellitus with hyperglycemia; G30.9 Alzheimer's disease, unspecified; Z86.711 Personal history of pulmonary embolism; Z86.718 Personal history of other venous thrombosis and embolism; Z85.118 Personal history of other malignant neoplasm of bronchus and lung; Z79.01 Long term (current) use of anticoagulants; Z79.4 Long term (current) use of insulin

== ENCOUNTER 2017-03-16 13:49 | Inpatient (IN) | payer MEDICARE, OTHER ==
[~2017-03-16] VITALS: Ht 157.5 cm; Wt 63.9 kg
[~2017-03-16 13:49] MED LIST changes: +NICODERM C1 PATCH .2 TRANSDERM; +OMNICEF300 MG PO; +PREDNISONE10 MG PO; +RISPERDAL0.5 MG PO; +SINGULAIR10 MG PO; +SYMBICORT 16010.2 GM INH
[2017-03-16 14:45] LABS: BASOPHILS 0.1 % (0-2); EOSINOPHILS 0.3 % (0-7); HEMATOCRIT 45.4 % (36.0-48.0); HEMOGLOBIN 14.2 g/dL (12-16); IMMATURE GRANULOCYTES 0.8 % (0-5); LYMPHOCYTES 15.5 % (15-50); MCH 29.9 pg (26.0-34.0); MCHC 31.3 g/dL (31.0-37.0); MCV 95.6 fL (80.0-100.0); MEAN PLATELET VOLUME 10.5 fL (7.4-10.4); MONOCYTES 8.7 % (2-11); NEUTROPHILS 74.6 % (40-80); PLATELET COUNT 215 10x3/uL (130-400); RBC 4.75 10x6/uL (4.00-5.40); RDW 14.9 % (11.5-14.5); WBC 7.9 10x3/uL (4.8-10.8)
[2017-03-16 14:56] LABS: ALKALINE PHOSPHATASE 67 U/L (46-116); ALT (SGPT) 18 U/L (10-68); BILIRUBIN - TOTAL 0.47 mg/dL (0.2-1.3); CALC OSMOLALITY 284 mosm/kg (275-300); CALCIUM 8.5 mg/dL (8.5-10.1); CARBON DIOXIDE 38.7 mmol/L (21.0-32.0); CHLORIDE - SERUM 95 mmol/L (98-107); CREATININE - SERUM 0.6 mg/dL (0.6-1.3); GLUCOSE 296 mg/dL (74-106); POTASSIUM - SERUM 5.2 mmol/L (3.5-5.1); PROTEIN - SERUM 6.1 g/dL (6.4-8.2); SODIUM 136 mmol/L (136-145); UREA NITROGEN 17 mg/dL (7-18); eGFR NON AFRICAN AMERICAN > 90 mL/min (90-120)
[2017-03-16 15:07] LABS: CKMB 2.2 U/L (0.0-3.6); CREATINE KINASE 47 UL (21-215); PRO BNP 2562 pg/mL (0-450)
[2017-03-16 15:14] LABS: TROPONIN-I < 0.017 ng/mL (0.000-0.060)
--- NOTE | 2017-03-16 17:10 | NUR ---
PT TO FLOOR FROM ER VIA STRETCHER ALERT AND ORIENTED DAUGHTER AND CAREGIVER AT BEDSIDE. WILL ADMIT.
[2017-03-16 17:32] VITALS: BP 112/52
--- NOTE | 2017-03-16 18:55 | NUR ---
PT SITTING UP IN BED DENIES NEEDS
--- NOTE | 2017-03-16 19:22 | NUR ---
RECEIVED REPORT, WILL ASSUME CARE OF PT, RECEPTIONIST SCHEDULER AT BEDSIDE, BED IS LOW, SRX2, BED ALARM IS ON, CALL LIGHT IN REACH, WILL CONTINUE PLAN OF CARE
[2017-03-16 20:00] VITALS: BP 136/61
[2017-03-16 21:25] LABS: TROPONIN-I 0.027 ng/mL (0.000-0.060)
--- NOTE | 2017-03-16 22:23 | NUR ---
ASSESSMENT COMPLETE, 02-3L, IV-LFA-SL, [id number], BOTTOM-REDNESS, EDEMA-BILATERAL FEET, BED IS LOW, SRX2, BED ALARM IS ON, REFUSING SCD, CALL LIGHT IN REACH, WILL CONTINUE PLAN OF CARE
[2017-03-17] VITALS: BP 91/44
[2017-03-17 03:32] LABS: BASOPHILS 0.1 % (0-2); HEMATOCRIT 41.8 % (36.0-48.0); HEMOGLOBIN 13.1 g/dL (12-16); IMMATURE GRANULOCYTES 0.9 % (0-5); LYMPHOCYTES 15.7 % (15-50); MCH 29.8 pg (26.0-34.0); MCHC 31.3 g/dL (31.0-37.0); MONOCYTES 10.8 % (2-11); NEUTROPHILS 71.5 % (40-80); PLATELET COUNT 205 10x3/uL (130-400); RDW 14.9 % (11.5-14.5); WBC 7.1 10x3/uL (4.8-10.8)
[2017-03-17 03:55] LABS: CALC OSMOLALITY 272 mosm/kg (275-300); CALCIUM 8.6 mg/dL (8.5-10.1); CHLORIDE - SERUM 94 mmol/L (98-107); CREATINE KINASE 55 UL (21-215); CREATININE - SERUM 0.6 mg/dL (0.6-1.3); GLUCOSE 188 mg/dL (74-106); MAGNESIUM - SERUM 1.5 mg/dL (1.8-2.4); PHOSPHOROUS 4.6 mg/dL (2.5-4.9); POTASSIUM - SERUM 4.7 mmol/L (3.5-5.1); PRO BNP 1807 pg/mL (0-450); SODIUM 134 mmol/L (136-145); TROPONIN-I 0.018 ng/mL (0.000-0.060); UREA NITROGEN 12 mg/dL (7-18); eGFR NON AFRICAN AMERICAN > 90 mL/min (90-120)
[2017-03-17 03:56] LABS: CARBON DIOXIDE 43.9 mmol/L (21.0-32.0)
[2017-03-17 04:00] VITALS: BP 108/54
--- NOTE | 2017-03-17 07:07 | NUR ---
PT SITTING UP IN BED WATCHING TV, DENIES ANY NEEDS AT THIS TIME WILL CONT TO MONITOR
[2017-03-17 08:58] VITALS: BP 94/421
[2017-03-17 10:07] LABS: TROPONIN-I 0.017 ng/mL (0.000-0.060)
[2017-03-17 11:09] VITALS: Ht 157.5 cm; Wt 63.9 kg
[2017-03-17] MEDS ORDERED: ELIQUIS5 MG PO (11:38)
[2017-03-17 11:55] VITALS: BP 100/42
--- NOTE | 2017-03-17 16:23 | NUR ---
PT SITTING UP IN BED WITH BOTH DAUGHTER AND CAREGIVER AT BEDSIDE DENY ANY NEEDS WILL CONT TO MONITOR
--- NOTE | 2017-03-17 18:09 | NUR ---
PT SITTING UP IN BED CLEANED UP FOR INC AGAIN DENIES NEEDS
[2017-03-17 20:00] VITALS: BP 130/44
--- NOTE | 2017-03-18 03:13 | NUR ---
ASSESSMENT COMPLETE, SEE FLOWSHEET, PT SLEEPING ON BACK, BED IS LOW, SRX2, BED ALARM IS ON, CALL LIGHT IN REACH , WILL CONTINUE PLAN OF CARE
[2017-03-18 04:00] VITALS: BP 104/65
--- NOTE | 2017-03-18 04:09 | NUR ---
LFA IV-INFILTRATED, RESTARTED 20G. RFA,
[2017-03-18 05:42] LABS: BASOPHILS 0.1 % (0-2); EOSINOPHILS 0.6 % (0-7); HEMATOCRIT 41.9 % (36.0-48.0); HEMOGLOBIN 13.4 g/dL (12-16); IMMATURE GRANULOCYTES 0.8 % (0-5); LYMPHOCYTES 12.7 % (15-50); MCH 29.8 pg (26.0-34.0); MCV 93.1 fL (80.0-100.0); MEAN PLATELET VOLUME 10.3 fL (7.4-10.4); MONOCYTES 11.1 % (2-11); NEUTROPHILS 74.7 % (40-80); PLATELET COUNT 222 10x3/uL (130-400); RDW 14.9 % (11.5-14.5)
[2017-03-18 06:15] LABS: ALBUMIN 2.8 g/dL (3.4-5.0); ALKALINE PHOSPHATASE 62 U/L (46-116); ALT (SGPT) 15 U/L (10-68); CALCIUM 8.7 mg/dL (8.5-10.1); CHLORIDE - SERUM 90 mmol/L (98-107); CREATININE - SERUM 0.6 mg/dL (0.6-1.3); MAGNESIUM - SERUM 1.6 mg/dL (1.8-2.4); PHOSPHOROUS 4.2 mg/dL (2.5-4.9); POTASSIUM - SERUM 4.5 mmol/L (3.5-5.1); PRO BNP 965 pg/mL (0-450); PROTEIN - SERUM 6.2 g/dL (6.4-8.2); SODIUM 132 mmol/L (136-145); eGFR NON AFRICAN AMERICAN > 90 mL/min (90-120)
[2017-03-18 06:22] LABS: CALC OSMOLALITY 275 mosm/kg (275-300); GLUCOSE 257 mg/dL (74-106); UREA NITROGEN 18 mg/dL (7-18)
--- NOTE | 2017-03-18 08:02 | NUR ---
ASSESSMENT DONE. DENIES NEEDS.
[2017-03-18 09:34] VITALS: BP 96/59
--- NOTE | 2017-03-18 09:37 | NUR ---
RESP UL ON . NO NEEDS VOICED AT THIS TIME. CALL LIGHT IN REACH. WILL MONITOR.
[2017-03-18 12:38] VITALS: BP 104/45
[2017-03-18 16:48] VITALS: BP 125/45
--- NOTE | 2017-03-18 17:22 | NUR ---
WITHOUT CHANGES OR DISTRESS NOTED AT THIS TIME. DENIES NEEDS.
--- NOTE | 2017-03-18 19:25 | NUR ---
RECEIVED REPORT, WILL ASSUME CARE OF PT, PT SITTING UP IN BED, DENIES ANY NEEDS AT THIS TIME, SOMEONE BROUGHT HER A REAL COKE, TEACH SHE NEEDS TO DRINK DIET BECAUSE OF BEING DIABETIC, SHE SAID I DON'T LIKE DIET, BES IS LOW, SRX2, CALL LIGHT IN REACH, WILL CONTINUE PLAN OF CARE
[2017-03-18 20:00] VITALS: BP 115/55
--- NOTE | 2017-03-18 21:40 | NUR ---
[id number] 12UNITS RUPALI CABALLERO, PT JUST DRANK A 20-OZ REG. COKE
[2017-03-19] VITALS: BP 108/53
--- NOTE | 2017-03-19 03:20 | NUR ---
ASSESSMENT COMPLETE, SEE FLOWSHEET, BED IS LOW, SRX2, SCD ARE ON ,BED ALARM IS ON, CALL LIGHT IN REACH, WILL CONTINUE PLAN OF CARE
[2017-03-19 04:00] VITALS: BP 119/59
[2017-03-19 05:57] LABS: BASOPHILS 0 % (0-2); EOSINOPHILS 0 % (0-7); HEMATOCRIT 39.1 % (36.0-48.0); HEMOGLOBIN 12.7 g/dL (12-16); IMMATURE GRANULOCYTES 0.5 % (0-5); LYMPHOCYTES 4.5 % (15-50); MCH 29.7 pg (26.0-34.0); MCHC 32.5 g/dL (31.0-37.0); MCV 91.6 fL (80.0-100.0); MEAN PLATELET VOLUME 10.1 fL (7.4-10.4); MONOCYTES 0.6 % (2-11); NEUTROPHILS 94.4 % (40-80); PLATELET COUNT 222 10x3/uL (130-400); RBC 4.27 10x6/uL (4.00-5.40); RDW 14.7 % (11.5-14.5); WBC 9.7 10x3/uL (4.8-10.8)
[2017-03-19 06:20] LABS: ALBUMIN 2.8 g/dL (3.4-5.0); ANION GAP 8.4 mmol/L (8-16); BILIRUBIN - TOTAL 0.4 mg/dL (0.2-1.3); CALCIUM 8.5 mg/dL (8.5-10.1); CARBON DIOXIDE 37.1 mmol/L (21.0-32.0); MAGNESIUM - SERUM 1.7 mg/dL (1.8-2.4); POTASSIUM - SERUM 4.5 mmol/L (3.5-5.1); PROTEIN - SERUM 6.4 g/dL (6.4-8.2)
[2017-03-19 06:25] LABS: CREATININE - SERUM 0.8 mg/dL (0.6-1.3)
--- NOTE | 2017-03-19 07:21 | NUR ---
ASSESSMENT DONE. DENIES NEEDS.
[2017-03-19 08:00] VITALS: BP 107/54
--- NOTE | 2017-03-19 10:18 | NUR ---
RESP UL ON . JUSTIN NEEDS. CALL LIGHT IN REACH. WILL MONITOR.
[2017-03-19 12:00] VITALS: BP 97/44
[2017-03-19 16:00] VITALS: BP 115/58
[2017-03-19 17:35] LABS: ANION GAP 9.1 mmol/L (8-16); CALCIUM 8.2 mg/dL (8.5-10.1); CARBON DIOXIDE 34.7 mmol/L (21.0-32.0); CREATININE - SERUM 0.9 mg/dL (0.6-1.3); POTASSIUM - SERUM 4.8 mmol/L (3.5-5.1)
--- NOTE | 2017-03-19 17:41 | NUR ---
WITHOUT CHANGES OR DISTRESS NOTED AT THIS TIME. DENIES NEEDS
[2017-03-19 20:00] VITALS: BP 120/57
--- NOTE | 2017-03-19 22:39 | NUR ---
ALERT AND ORIENTED X4. RETURN TO ROOM VIA BED FROM CTA OF CHEST. RT FA IV INFILTRATED. DC RT FA IV TIP INTACT. RESITE IV LT AC 20G. REQUESTING TO EAT. SNACK GIVEN ACCORDING TO DIABETIC DIET ORDERED. DENIES ANY NEEDS. BED LOCKED AND LOW. CALL LIGHT IN REACH. TWO SIDERAILS UP. BED ALARM ON. NO SCDs. TAKES ELIQUIS. 127 SINUS TACH ON TELEMETRY.
--- NOTE | 2017-03-19 22:45 | NUR ---
SLEEPING IN BED. AROUSES TO VOICE. NO SIGNS OF REACTION. BP-96/51, T-98.3, R-18, P-123bpm UNCONTROLLED A-FIB ON TELEMETRY. INCREASE TRANSFUSION RATE TO 125mL/HR. CONTINUE PLAN OF CARE. BED LOCKED AND LOW. CALL LIGHT IN REACH. TWO SIDERAILS UP. BOX ALARM ON. O2 @ 2L NC.
--- NOTE | 2017-03-20 02:02 | NUR ---
SLEEPING IN BED. O2 @ 5L NC. NO SIGNS OF DISTRESS. CONTINUE PLAN OF CARE AND SAFETY PRECAUTIONS. SINUS RHTHYM 97bpM ON TELEMETRY.
[2017-03-20 05:49] LABS: BASOPHILS 0.1 % (0-2); EOSINOPHILS 0 % (0-7); HEMATOCRIT 39.7 % (36.0-48.0); HEMOGLOBIN 12.8 g/dL (12-16); IMMATURE GRANULOCYTES 0.5 % (0-5); LYMPHOCYTES 6.9 % (15-50); MCH 29.8 pg (26.0-34.0); MCHC 32.2 g/dL (31.0-37.0); MCV 92.5 fL (80.0-100.0); MEAN PLATELET VOLUME 10.2 fL (7.4-10.4); NEUTROPHILS 86.5 % (40-80); PLATELET COUNT 248 10x3/uL (130-400); RBC 4.29 10x6/uL (4.00-5.40)
[2017-03-20 05:51] LABS: WBC 13.4 10x3/uL (4.8-10.8)
--- NOTE | 2017-03-20 06:15 | NUR ---
ALERT AND ORIENTED X4. LINENS SOILED. BED CHANGED. SINUS RHTHYM 95bpm ON TELEMETRY. DENIES ANY NEEDS. CONTINUE PLAN OF CARE AND SAFETY PRECAUTIONS. PREPARE HAND OFF REPORT.
[2017-03-20 06:18] LABS: ALBUMIN 2.9 g/dL (3.4-5.0); ALKALINE PHOSPHATASE 57 U/L (46-116); ALT (SGPT) 20 U/L (10-68); CALC OSMOLALITY 275 mosm/kg (275-300); CALCIUM 8.4 mg/dL (8.5-10.1); CARBON DIOXIDE 34.8 mmol/L (21.0-32.0); CHLORIDE - SERUM 90 mmol/L (98-107); CREATININE - SERUM 0.7 mg/dL (0.6-1.3); GLUCOSE 343 mg/dL (74-106); POTASSIUM - SERUM 4.6 mmol/L (3.5-5.1); PRO BNP 928 pg/mL (0-450); PROTEIN - SERUM 6.6 g/dL (6.4-8.2); SODIUM 129 mmol/L (136-145); UREA NITROGEN 20 mg/dL (7-18); eGFR NON AFRICAN AMERICAN 85 mL/min (90-120)
[2017-03-20 08:00] VITALS: BP 121/53
--- NOTE | 2017-03-20 09:31 | NUR ---
ASSESSMENT COMPLETED. O2 AT 5 L/M PER NC. TELEMERTY SHOWS SR AT 100. LEFT ARM SL. SCDS ON. DENIES ANY NEEDS. INCONIENT AT TIMES. SR UP WITH CALL LIGHT IN REACH. WILL MONITOR
[2017-03-20 12:00] VITALS: BP 121/49
--- NOTE | 2017-03-20 13:38 | NUR ---
LYING QUIETLY. VISITORS AT BEDSIDE. TELEMERTY SHOWS SR.
--- NOTE | 2017-03-20 14:29 | NUR ---
PT RESTING QUIETLY NAD NOTED
[2017-03-20 16:00] VITALS: BP 116/50
--- NOTE | 2017-03-20 18:24 | NUR ---
LYING QUIETLY WITH HOB UP,O2 AT 5 L/M PER NC.LEFT ARM SL. INCONIENT. SR ON TELEMERTY
[2017-03-20 19:00] VITALS: BP 108/49
--- NOTE | 2017-03-20 19:28 | NUR ---
RECEIVED REPORT, WILL ASSUME CARE OF PT, PT IS WATCHING TV, DENIES ANY NEEDS AT THIS TIME, SCD ARE ON, BED IS LOW, SRX2, BED ALARM IS ON, WILL CONTINUE PLAN OF CARE
[2017-03-21] VITALS: BP 119/58
--- NOTE | 2017-03-21 03:19 | NUR ---
ASSESSMENT COMPLETE, SEE FLOWSHEET, PT EATING SUGAR FREE CANDY, DENIES ANY NEEDS, BED IS LOW, SRX2, BED ALARM IS ON, CALL LIGHT IN REACH
[2017-03-21 04:00] VITALS: BP 128/68
--- NOTE | 2017-03-21 04:56 | NUR ---
PT RESTING IN BED WITH EYES CLOSED. RESPS NONLABORED. CPOC.
[2017-03-21 05:40] LABS: BASOPHILS 0.1 % (0-2); EOSINOPHILS 0 % (0-7); HEMATOCRIT 39.2 % (36.0-48.0); HEMOGLOBIN 12.5 g/dL (12-16); IMMATURE GRANULOCYTES 0.5 % (0-5); LYMPHOCYTES 3.8 % (15-50); MCH 29.6 pg (26.0-34.0); MCHC 31.9 g/dL (31.0-37.0); MCV 92.7 fL (80.0-100.0); MEAN PLATELET VOLUME 10.1 fL (7.4-10.4); MONOCYTES 1.3 % (2-11); NEUTROPHILS 94.3 % (40-80); PLATELET COUNT 261 10x3/uL (130-400); RBC 4.23 10x6/uL (4.00-5.40); RDW 14.6 % (11.5-14.5); WBC 12.9 10x3/uL (4.8-10.8)
[2017-03-21 06:01] LABS: ALBUMIN 2.7 g/dL (3.4-5.0); ALKALINE PHOSPHATASE 51 U/L (46-116); ALT (SGPT) 18 U/L (10-68); BILIRUBIN - TOTAL 0.41 mg/dL (0.2-1.3); CALC OSMOLALITY 280 mosm/kg (275-300); CARBON DIOXIDE 35.7 mmol/L (21.0-32.0); CHLORIDE - SERUM 97 mmol/L (98-107); CREATININE - SERUM 0.7 mg/dL (0.6-1.3); GLUCOSE 331 mg/dL (74-106); POTASSIUM - SERUM 5.1 mmol/L (3.5-5.1); SODIUM 133 mmol/L (136-145); UREA NITROGEN 19 mg/dL (7-18); eGFR NON AFRICAN AMERICAN 85 mL/min (90-120)
--- NOTE | 2017-03-21 08:55 | NUR ---
ASSESSMENT COMPLETED. HOB UP FOR DIET. TELEMERTY SHOWS ST . O2 AT 5 L/M PER NC. SL TO LEFT FOREARM. DENIES ANY NEED. SR UP WITH CALL LIGHT IN REACH.
[2017-03-21 08:57] VITALS: BP 110/43
[2017-03-21 12:20] VITALS: BP 117/78
[2017-03-21 15:48] VITALS: BP 121/53
--- NOTE | 2017-03-21 18:30 | NUR ---
SITTING UP IN BED. DENIES ANY NEEDS. TELEMERTY SHOWS SR. SR UP WITH CALL LIGHT IN REACH WILL GRANT
--- NOTE | 2017-03-21 19:20 | NUR ---
RECEIVED REPORT, WILL ASSUME CARE OF PT, PT WATCHING TV, DENIES ANY NEEDS, BED IS LOW, SRX2, CALLIGHT IN REACH, WILL CONTINUE CARE OF PLAN
[2017-03-21 20:00] VITALS: BP 114/63
--- NOTE | 2017-03-22 02:33 | NUR ---
ASSESSMENT COMPLETE, SEE FLOWSHEET, SLEEPING, BED IS LOW, SRX2, BED ALARM IS ON, CALL LIGHT IN REACH, WILL CONTINUE PLAN OF CARE
[2017-03-22 04:00] VITALS: BP 122/74
--- NOTE | 2017-03-22 05:16 | NUR ---
PT AWAKE/ALERT AND WAVING AT PEOPLE THEY PASS HER ROOM. NO REQUESTS MADE, NO DISTRESS. CALL LIGHT IN REACH AND FREQUENTLY TURNS IT ON FOR SMALL THINGS TO BE DONE. CPOC.
[2017-03-22 06:42] LABS: ALBUMIN 2.6 g/dL (3.4-5.0); ALKALINE PHOSPHATASE 45 U/L (46-116); ALT (SGPT) 19 U/L (10-68); BILIRUBIN - TOTAL 0.42 mg/dL (0.2-1.3); CALC OSMOLALITY 281 mosm/kg (275-300); CALCIUM 7.6 mg/dL (8.5-10.1); CARBON DIOXIDE 34.7 mmol/L (21.0-32.0); CHLORIDE - SERUM 96 mmol/L (98-107); CREATININE - SERUM 0.7 mg/dL (0.6-1.3); GLUCOSE 341 mg/dL (74-106); POTASSIUM - SERUM 5.1 mmol/L (3.5-5.1); PROTEIN - SERUM 5.7 g/dL (6.4-8.2); SODIUM 133 mmol/L (136-145); UREA NITROGEN 20 mg/dL (7-18); eGFR NON AFRICAN AMERICAN 85 mL/min (90-120)
[2017-03-22 06:43] LABS: BASOPHILS 0 % (0-2); EOSINOPHILS 0 % (0-7); HEMATOCRIT 39.9 % (36.0-48.0); HEMOGLOBIN 12.8 g/dL (12-16); LYMPHOCYTES 5.8 % (15-50); MCH 29.7 pg (26.0-34.0); MCHC 32.1 g/dL (31.0-37.0); MCV 92.6 fL (80.0-100.0); MEAN PLATELET VOLUME 10.4 fL (7.4-10.4); MONOCYTES 2.7 % (2-11); NEUTROPHILS 90.5 % (40-80); PLATELET COUNT 264 10x3/uL (130-400); RBC 4.31 10x6/uL (4.00-5.40); RDW 14.4 % (11.5-14.5); WBC 9.9 10x3/uL (4.8-10.8)
--- NOTE | 2017-03-22 07:35 | NUR ---
PATIENT AMBULATED TO W/C WITH ASSIST, AND TOLERATED WELL. PATIENT TO XRAY AT THIS TIME.
--- NOTE | 2017-03-22 07:47 | NUR ---
PATIENT RETURNED FROM SURGERY WITH RADIOLOGY STAFF. PATIENT ALERT AND TALKATIVE. TRANSFERRED BACK TO BED.
[2017-03-22 08:00] VITALS: BP 121/67
--- NOTE | 2017-03-22 10:24 | NUR ---
RT IN ROOM FOR TREATMENT. PATIENT SITTING UP IN CHAIR, AND REQUESTING TO TAKE MASK HOME. PATIENT STATES THE MASK REALLY HELPS HER.
--- NOTE | 2017-03-22 10:45 | NUR ---
IV INFILTRATED, LEAKING AT SITE. IV DC'D WITH PRESSURE APPLIED. SITE SLIGHTLY RED WITH EDEMA NOTED.
[2017-03-22 12:00] VITALS: BP 115/52
--- NOTE | 2017-03-22 13:46 | NUR ---
CASE MANAGEMENT IN ROOM WITH PATIENT. PATIENT IN BED ALERT AND ORIENTED.
--- NOTE | 2017-03-22 13:59 | NUR ---
Patient Name: LALIT OROZCO Admission Status: ER Accout number: [id number] Admission Date: 03-16-2017 : 1935 Admission Diagnosis:SHORTNESS OF BREATH Attending: CARLY Current LOS: 6 Anticipated DC Date: 03-22-2017 Planned Disposition: Home Primary Insurance: MEDICARE A & B Discharge Planning Comments: * Is the patient Alert and Oriented? Yes 0 * How many steps to enter\exit or inside your home? NONE 0 * PCP DR. HOGAN 0 * Pharmacy [facility] 0 * Preadmission Environment Home with Family 0 * ADLs Independent 0 * Equipment Cane Nebulizer Oxygen Shower Chair Wheelchair 0 * Other Equipment ALSO HAS [employer] [facility] - MEDICAL EQUIPMENT PROVIDER PREFERENCE 0 * List name and contact numbers for known caregivers / representatives who currently or will assist patient after discharge: LAZ GONZALEZ, DAUGHTER, 0 * Community resources currently utilized Private Duty Care 0 * Please name any agencies selected above. [facility], DAILY (PT'S DAUGHTER STAYS WITH DAUGHTER AT NIGHT / WEEKENDS) 0 * Additional services required to return to the preadmission environment? No 0 * Can the patient safely return to the preadmission environment? Yes 0 * Has this patient been hospitalized within the prior 30 days at any hospital? Yes 0 CM MET WITH PT IN ROOM TO DISCUSS DISCHARGE PLANNING AND NEEDS. PT REPORTS LIVING AT HOME INDEPENDENTLY WITH HER ADULT DAUGHTER. PT REPORTS HAVING ALL NEEDED MEDICAL EQUIPMENT FROM [facility]. PT REPORTS HAVING CAREGIVERS EVERY DAY WHEN HER DAUGHTER IS NOT THERE. CM DISCUSSED AVAILABILITY OF HOME HEALTH, REHAB SERVICES AND MEDICAL EQUIPMENT.PT DENIES DISCHARGE NEEDS, STATES SHE IS READY TO GO HOME NOW SHE IS NOT SICK. PT REPORTS HER CAREGIVER, PRESENT IN ROOM, WILL PICK HER UP FOR DISCHARGE HOME. IMPORTANT MESSAGE FROM MEDICARE PROVIDED AND EXPLAINED. Picker/Puller: Oli Bates
--- NOTE | 2017-03-22 15:15 | NUR ---
SPOKE WITH DR. ALVARENGA ABOUT PATIENT NOT HAVING IV. DR. ALVARENGA STATES THAT HE WILL CHANGE ORDERS, AND TO LEAVE IV OUT SINCE PATIENT WILL BE DISCHARGED TOMORROW.
--- NOTE | 2017-03-22 15:46 | NUR ---
Nutrition education for DMT2: Pt and daughters in room. Pt did not what to talk to me; pt only argued with me about everything I said. Provided daughters with DMT2 diet handouts and RDN name and phone number. RDN will be available if needed. Thank you for the consult.
[2017-03-22] MEDS ORDERED: AUGMENTIN 875-11 TAB PO (15:53)
[2017-03-22] MEDS ORDERED: PREDNISONE10 MG PO (15:54)
--- NOTE | 2017-03-22 16:25 | NUR ---
SPOKE WITH DR. BARLOW AND SHE STATES PATIENT IS BEING DISCHARGED TODAY.
--- NOTE | 2017-03-22 17:42 | NUR ---
PATIENT SITTING UP IN BED EATING DINNER AND DENIES ANY NEEDS. CALL LIGHT WITHIN REACH AND BED IN LOW POSITION.
--- NOTE | 2017-03-22 18:17 | NUR ---
WENT OVER DISCHARGE INSTRUCTIONS WITH PATIENT AND CAREGIVER, BOTH VERBALIZE UNDERSTANDING. CAREGIVER GETTING PATIENT DRESSED AT THIS TIME.
--- NOTE | 2017-03-22 18:50 | NUR ---
PATIENT DISCHARGED VIA W/C TO POV AND TOLERATED WELL.
--- NOTE | 2017-03-31 09:41 | CN ---
PATIENT NAME:LALIT OROZCO MEDICAL RECORD: [id number] : 35 LOCATION:D. D.2123 ADMIT DATE: 03/16/17 ACCOUNT: [id number] CONSULTING PHYSICIAN: GLENN GARCIA MD REFERRING PHYSICIAN: BIRD SCHWARTZ MD DATE OF CONSULTATION: 03/17/2017 Cardiology Consultation ADMITTING DIAGNOSES: 1. Shortness of breath, dyspnea on exertion. 2. Chronic obstructive pulmonary disease. 3. Alzheimer dementia. 4. Type 2 diabetes. 5. Smoking history. 6. Bipolar disorder. 7. Diabetes type 2. 8. History of pulmonary emboli. 9. History of deep venous thrombosis. HISTORY OF PRESENT ILLNESS: Mrs. Orozco presents with shortness of breath. She does not have any cardiac history. Her chest x-ray is not compatible with pulmonary edema. She has been treated for COPD. She continues to desaturate and has shortness of breath with ambulation. We are now asked to evaluate from a cardiac standpoint. Troponin is normal. She was not having ischemic changes on her EKG. She has not had any chest pain or chest discomfort. PHYSICAL EXAMINATION: GENERAL APPEARANCE: Well-nourished, well-developed, appears stated age. Level of distress, comfortable. PSYCHIATRIC: Mental status, alert, normal affect. Orientation, oriented to time, place and person. EYES: Lids and conjunctiva, noninjected. No discharge, no pallor. ENT: Lips, teeth, gums, normal dentition. Oropharynx, no cyanosis, no pallor. NECK: Carotid arteries, bilateral normal upstroke, no bruits, no thrills. JUGULAR VEINS: No jugular venous pressure or distention. CERVICAL LYMPH NODES: Nontender, nonenlarged. THYROID: Not enlarged. Nontender. No nodules. LUNGS: Respiratory effort, unlabored. CHEST: Normal curvature. No thoracic deformity. No chest wall tenderness. Percussion, resonant. Auscultation, clear. No wheezes, no rales, no rhonchi. CARDIOVASCULAR: Precordial exam, nondisplaced. No heaves or pericardial thrills. Rate and rhythm, regular. Heart sounds, normal S1, normal S2. No S3, no gallop, no rub. Systolic murmur, not heard. Diastolic murmur, not heard. EXTREMITIES: No cyanosis, no edema. Peripheral pulses, full and equal in all extremities, except as noted. No bruits appreciated. ABDOMEN: Soft, nondistended. Normal aorta. No bruit. Nontender. No masses. Liver, nontender, no hepatomegaly. Spleen, nontender, no splenomegaly. MUSCULOSKELETAL: No joint tenderness. No joint swelling. No erythema. NEUROLOGICAL: Normal gait, normal strength, normal tone. SKIN: Warm and dry. OVERALL IMPRESSION: Most likely, this is not congestive heart failure. We will get an echocardiogram. No other cardiac workup treatment is necessary at this time. CONSULT REPORT [id number] LALIT OROZCO TRANSINT:[id number] Voice Confirmation ID: [id number] DOCUMENT ID: [id number] GLENN GARCIA MD at 0941 CC: [id number] DICTATION DATE: 03/17/171951 CARPENTER ASSEMBLER: 03/17/172226 DIS IN 03/22/17 [facility] [address] [place] [address]
--- NOTE | 2017-03-31 09:41 | EC ---
PATIENT:LALIT OROZCO DATE OF SERVICE: 03/16/17 SEX: F MEDICAL RECORD: [id number] DATE OF : [birth year] LOCATION:D.M2 D.212 AGE OF PATIENT: 81 ADMISSION DATE: 03/16/17 REFERRING PHYSICIAN: INTERPRETING PHYSICIAN: GLENN SALES MD ECHOCARDIOGRAM REPORT ECHO CHARGES 4 ECHO COMPLETE CLINICAL DIAGNOSIS: DYSPNEA HX COPD/CHF ECHOCARDIOGRAPHIC MEASUREMENTS (adult normal given) AC root (d.<3.7cm) 3.3 cm LV Septum d (<1.2 cm> 1.4 cm Valve Excursion 1.2 cm LV Septum (systole) 1.5 cm Left Atria (s.<4.0cm> 3.2 cm LVPW d(<1.2cm) 1.5 cm RV (d.<2.3cm) 4.8 cm LVPW (sytole) 1.9 cm LV diastole(<5.6CM) 2.5 cm MV E-F(>70mm/sec) cm LV systole 1.3 cm LVOT Diameter 1.0 cm MV exc.(>10mm) 1.0 cm Est.ejection fraction (50-75%) % Pericardial Effusion N DOPPLER: LVIT cm/sec A 174 cm/sec E 92.0 cm/sec LA cm/sec RVSP 51 mmHg LVOT 101 cm/sec AOP1/2T m/s Asc. Ao 162 cm/sec RVOT 65 cm/sec RA cm/sec PA 115 cm/sec AV Gradient Peak 10.50mmHg AV Mean 5.68 mmHg AV Area 1.5 cm MV Gradient Peak 16.47mmHg MV Mean 6.19 mmHg MV Area cm COMMENTS: Site Physician: Eleonora ARCHIBALD Airplane Electrical Repairer: 1 Dr. Sales TAPE# PACS DATE OF SERVICE: 03/18/2017 Echocardiogram FINDINGS: 1. Left ventricular chamber size is within normal limits. Left ventricular systolic function is normal. Overall ejection fraction estimated at 65%. 2. Left atrium within normal limits at 3.2 cm. Right atrium and right ventricular chamber sizes are moderately dilated. 3. Valvular structures have normal structure and motion. ECHOCARDIOGRAM REPORT [id number] LALIT OROZCO 4. Doppler interrogation reveals mild mitral regurgitation, moderate tricuspid regurgitation, no other valvular insufficiency or stenosis; however, pulmonary systolic pressure is elevated estimated at 51 mmHg. 5. No evidence of pericardial effusion or left ventricular thrombus. TRANSINT:[id number] Voice Confirmation ID: [id number] DOCUMENT ID: [id number] GLENN SALES MD at 0941 CC: [id number] DICTATION DATE: 03/18/17 1219 LINE TENDER: 03/18/17 1423 DIS IN 03/22/17 [place] [id number] [place] [id number]
--- NOTE | 2017-04-05 14:02 | CN ---
PATIENT NAME:LALIT ALBERTS MEDICAL RECORD: [id number] : 35 LOCATION:D. D.2123 ADMIT DATE: 03/16/17 ACCOUNT: [id number] CONSULTING PHYSICIAN: GINNY BERNARDO MD REFERRING PHYSICIAN: BIRD SCHWARTZ MD DATE OF CONSULTATION: 03/20/2017 CONSULT REQUESTING PHYSICIAN: Jory Mesa MD REASON FOR CONSULTATION: Pneumonia, left lower lobe. HISTORY OF PRESENT ILLNESS: Ms. Alberts is an 81-year-old female who has a history of severe COPD, home oxygen dependent. According to the patient, 2 days prior to her admission, she has worsening shortness of breath, her pulse ox were dropping to 80s on her regular maintenance oxygen. She denies any fever and chills. She is coughing with whitish-colored sputum production. Denies any chest pain. REVIEW OF SYSTEMS: Mainly in the history of present illness. PAST MEDICAL HISTORY: 1. History of cancer of the lung. 2. COPD of severe degree, home oxygen dependent. 3. History of depression, bipolar disorder. PAST SURGICAL HISTORY: 1. Bilateral hip surgery. 2. Appendectomy. 3. Hysterectomy. 4. History of bladder surgery. ALLERGIES: SHE IS ALLERGIC TO LEVAQUIN AND MORPHINE. PRESENT MEDICATIONS: [employer] was reviewed. PERSONAL AND SOCIAL HISTORY: The patient has a drinking history. She is an ex-smoker. FAMILY HISTORY: Noncontributory. PHYSICAL EXAMINATION: GENERAL: Now, the patient is lying comfortably. The patient is not in acute distress. VITAL SIGNS: The blood pressure is 121/49, pulse is 103, respiration is 18, temperature 97.9, SPO2 is 92% on 5 liters nasal cannula. HEENT: Conjunctivae are pink. Sclerae nonicteric. NECK: Supple, no JVD. CHEST: There no wheeze, no rales. HEART: Rhythm regular, normal sound, no murmur. ABDOMEN: Soft, bowel sounds present. No hepatosplenomegaly. RECTAL: Deferred. EXTREMITIES: No cyanosis, no clubbing, no pedal edema. SKIN: Warm, normal turgor. CENTRAL NERVOUS SYSTEM: The patient is awake and alert. There are no obvious cranial nerve abnormalities. The gait was not tested. CONSULT REPORT [id number] LALIT ALBERTS LABORATORY DATA: CBC: WBC 13.4, hemoglobin 12.8, hematocrit 39.7, platelet count is 248. Chemistry: Sodium 129, potassium 4.6, BUN is 20, creatinine 0.7, glucose 343. ABG: The pH is 7.39, pCO2 is 59.2, pO2 of 75, bicarbonate is 36. IMAGING: CTA of the chest is negative for PE. There are emphysematous changes. There is a left lower lobe atelectasis or possible infiltrate with probable endobronchial lesion with the mucous plugging. IMPRESSION: 1. Otxek-na-uncrvyw hypoxic respiratory failure and pneumonia, left lower lobe. 2. Possible atelectasis of the left lower lobe with mucous plugging. 3. Acute exacerbation of the chronic obstructive pulmonary disease. 4. History of pulmonary embolism. 5. History of cancer of the lung. RECOMMENDATION: 1. Continue supplemental oxygen. Start her on Mucinex. Discontinue the Advair and start her on Brovana and budesonide nebulizer. Start methylprednisolone IV. 2. Chest physiotherapy. 3. Flutter q.2 hourly when awake. 4. Albuterol/ipratropium nebulizer. 5. Follow up the chest radiograph. 6. Considering the patient's history of acute hypoxic respiratory failure, she is high risk for the bronchoscopy. We will enhance medical management. Discussed with the respiratory therapist. Dr. Mesa, thank you for involving me in the care of Mrs. Alberts. TRANSINT:[id number] Voice Confirmation ID: [id number] DOCUMENT ID: [id number] GINNY BERNARDO MD at 1402 CC: YARELY HOGAN MD [id number] DICTATION DATE: 03/20/17 1511 PURCHASING SUPERVISOR: 03/20/171943 DIS IN 03/22/17 [facility] [address] [place] [address]
== END 2017-03-22 18:50 | disposition home or self-care (01) | DRG 291 ==
LOC: OBSVTIME → D.OPS 13:49 → D.ER 13:49 → OBSVTIME 16:08 → D.M2 16:08 → EDSTATUS 17:11 → D.M2 19:57
PROVIDERS: Family Medicine; ADMIT Family Medicine
DX: I50.31 Acute diastolic (congestive) heart failure (principal); J96.21 Acute and chronic respiratory failure with hypoxia; J18.9 Pneumonia, unspecified organism; J44.1 Chronic obstructive pulmonary disease with (acute) exacerbation; F31.30 Bipolar disorder, current episode depressed, mild or moderate severity, unspecified; F17.203 Nicotine dependence unspecified, with withdrawal; J98.11 Atelectasis; E87.1 Hypo-osmolality and hyponatremia; J44.0 Chronic obstructive pulmonary disease with (acute) lower respiratory infection; E11.9 Type 2 diabetes mellitus without complications; E87.5 Hyperkalemia; Z74.09 Other reduced mobility; G30.9 Alzheimer's disease, unspecified; F02.80 Dementia in other diseases classified elsewhere, unspecified severity, without behavioral disturbance, psychotic disturbance, mood disturbance, and anxiety; T17.990A Other foreign object in respiratory tract, part unspecified in causing asphyxiation, initial encounter; Z85.118 Personal history of other malignant neoplasm of bronchus and lung; Z86.711 Personal history of pulmonary embolism; Z86.718 Personal history of other venous thrombosis and embolism

== ENCOUNTER 2017-03-30 10:45 | Emergency (ER) | payer MEDICARE, OTHER ==
[~2017-03-30 10:45] MED LIST changes: +AUGMENTIN 875-11 TAB PO
[2017-03-30 11:46] LABS: BASOPHILS 0.1 % (0-2); EOSINOPHILS 0.9 % (0-7); HEMATOCRIT 45.1 % (36.0-48.0); HEMOGLOBIN 14.1 g/dL (12-16); IMMATURE GRANULOCYTES 1.2 % (0-5); LYMPHOCYTES 10.8 % (15-50); MCH 29.9 pg (26.0-34.0); MCHC 31.3 g/dL (31.0-37.0); MCV 95.8 fL (80.0-100.0); MEAN PLATELET VOLUME 10.2 fL (7.4-10.4); MONOCYTES 7.7 % (2-11); NEUTROPHILS 79.3 % (40-80); PLATELET COUNT 213 10x3/uL (130-400); RBC 4.71 10x6/uL (4.00-5.40); RDW 14.5 % (11.5-14.5)
[2017-03-30 12:03] LABS: ALKALINE PHOSPHATASE 55 U/L (46-116); ALT (SGPT) 19 U/L (10-68); BILIRUBIN - TOTAL 0.45 mg/dL (0.2-1.3); CALCIUM 8.9 mg/dL (8.5-10.1); CHLORIDE - SERUM 93 mmol/L (98-107); CREATININE - SERUM 0.7 mg/dL (0.6-1.3); POTASSIUM - SERUM 4.4 mmol/L (3.5-5.1); PROTEIN - SERUM 6.6 g/dL (6.4-8.2); SODIUM 132 mmol/L (136-145); UREA NITROGEN 29 mg/dL (7-18); eGFR NON AFRICAN AMERICAN 85 mL/min (90-120)
[2017-03-30 12:34] LABS: CALC OSMOLALITY 289 mosm/kg (275-300)
[2017-03-30 12:35] LABS: GLUCOSE 440 mg/dL (74-106)
[2017-03-30 13:03] LABS: APPEARANCE HAZY (CLEAR); BACTERIA FEW /hpf (NONE SEEN); BILIRUBIN NEGATIVE (NEGATIVE); COLOR YELLOW (YELLOW); GLUCOSE 1000 mg/dL (NEGATIVE); KETONE NEGATIVE (NEGATIVE); LEUKOCYTE ESTERASE 1+ (NEGATIVE); NITRITE NEGATIVE (NEGATIVE); PROTEIN NEGATIVE (NEGATIVE); SPECIFIC GRAVITY 1.015 (1.005-1.020); UROBILINOGEN NORMAL (NORMAL)
[2017-03-30 13:04] LABS: EPITHELIAL CELLS OCC /hpf (0-5); YEAST >1+ WITH HYPHAE /hpf (NONE SEEN)
== END 2017-03-30 14:45 | disposition home or self-care (01) ==
LOC: D.ER 10:45
PROVIDERS: Emergency Medicine; Nurse Practitioner Acute Care
DX: E11.649 Type 2 diabetes mellitus with hypoglycemia without coma (principal); B37.3 Candidiasis of vulva and vagina; F31.89 Other bipolar disorder; I50.9 Heart failure, unspecified; J44.9 Chronic obstructive pulmonary disease, unspecified

== ENCOUNTER 2017-04-02 12:01 | Inpatient (IN) | payer MEDICARE, OTHER ==
[~2017-04-02] VITALS: Ht 157.5 cm; Wt 55.8 kg
[2017-04-02 13:37] LABS: BASOPHILS 0.1 % (0-2); EOSINOPHILS 0 % (0-7); HEMATOCRIT 43.3 % (36.0-48.0); HEMOGLOBIN 13.8 g/dL (12-16); IMMATURE GRANULOCYTES 1.5 % (0-5); LYMPHOCYTES 4.3 % (15-50); MCH 30.1 pg (26.0-34.0); MCHC 31.9 g/dL (31.0-37.0); MCV 94.5 fL (80.0-100.0); MEAN PLATELET VOLUME 10.8 fL (7.4-10.4); MONOCYTES 4.3 % (2-11); NEUTROPHILS 89.8 % (40-80); RBC 4.58 10x6/uL (4.00-5.40); RDW 14.9 % (11.5-14.5); WBC 16.9 10x3/uL (4.8-10.8)
[2017-04-02 13:42] LABS: PLATELET COUNT 167 10x3/uL (130-400)
[2017-04-02 13:57] LABS: ALBUMIN 2.9 g/dL (3.4-5.0); ANION GAP 0.2 mmol/L (8-16); BILIRUBIN - TOTAL 0.57 mg/dL (0.2-1.3); CALCIUM 8.8 mg/dL (8.5-10.1); POTASSIUM - SERUM 4.2 mmol/L (3.5-5.1); PROTEIN - SERUM 6.4 g/dL (6.4-8.2)
[2017-04-02 14:44] LABS: APPEARANCE HAZY (CLEAR); BILIRUBIN NEGATIVE (NEGATIVE); COLOR YELLOW (YELLOW); GLUCOSE 1000 mg/dL (NEGATIVE); KETONE NEGATIVE (NEGATIVE); LEUKOCYTE ESTERASE TRACE (NEGATIVE); NITRITE POSITIVE (NEGATIVE); PROTEIN NEGATIVE (NEGATIVE); SPECIFIC GRAVITY 1.015 (1.005-1.020); UROBILINOGEN NORMAL (NORMAL)
[2017-04-02 14:56] LABS: BACTERIA MANY /hpf (NONE SEEN); EPITHELIAL CELLS RARE /hpf (0-5); RED CELLS - URINE RARE /hpf (0-5)
--- NOTE | 2017-04-02 17:08 | NUR ---
RECEIVED REPORT FROM CARLOS THACKER, ER NURSE.
--- NOTE | 2017-04-02 17:30 | NUR ---
RECEIVED PT TO ROOM 210, VIA STRETCHER, PT ACCOMPANIED BY CAREGIVER AND DAUGHTER IN LAW. PT TRANSFERED TO BED, AND CLEANED UP FROM INCONT EPISODE. UNSTABLE SORE NOTED TO COCCYX AREA. PERINEAL AREA RED AND EXCORCIATED. FAMILY STATED SHE HAD A YEAST INFECTION. PT A/O DENIES ANY PAIN AT THIS TIME. REFUSED TO WEAR SCD'S AND NICOTINE PATCH. IVPB MERREM FINISHING INFUSING. PT WEARING A SIMPLE MASK ON 1L O2 SAT 97%. PT ORIENTED TO ROOM AND CALL LIGHT, BEDSIDE RAILS X2, CALL LIGHT IN REACH, WILL START PLAN OF CARE.
[2017-04-02 17:56] VITALS: BP 100/37; BMI 22.0
--- NOTE | 2017-04-02 19:00 | NUR ---
REPORT RECEIVED FROM OFF COMING NURSE. PT IN BED. O2 SIMPLE MASK AT 2L. PT CHANGED FROM MASK TO NC AT 2L. BREATHING NORMAL AND UNLABORED. BLE EDEMA 2+. PERIAREA REDDNESS NOTED. NO NYSTATIN IN [place] AND PHARMACY STAFF NOT IN HOSPITAL. PT BLADDER INCON. PAD SATURATED WITH URINE. PERIAREA CLEANSE AND NEW INCON. PAD AND BED PATTON CHANGED. REDDNESS NOTED TO BOTTOM. PILLOW WEDGE TO RIGHT SIDE. NO NEEDS VOICED AT THIS TIME. CALL LIGHT IN REACH. WILL CONT POC.
[2017-04-02 20:00] VITALS: BP 118/61
--- NOTE | 2017-04-02 22:00 | NUR ---
PT POA AT BED SIDE. PT RESTING WITH EYES CLOSED WITH 0 NORMAL UNLABORED BREATHING. POA BROUGHT PT SOME FIXADENT FOR DENTURES AND A PACK OF CIGARETTS WITH NO CIGARETTS IN BOX BUT WITH MONEY INSIDE INSTEAD. 10 DOLLARS NOTED.
--- NOTE | 2017-04-02 23:35 | NUR ---
BED PAD SATURATED WITH URINE. PERIAREA CLEANSE AND NEW PADS TO BED. CREAM APPLIED TO BUTTOCKS. REDDNESS NOTED TO BOTTOM WHICH IS BLANCHABLE. PT REPOSITIONED. CALL LIGHT IN REACH. WILL CONT POC
[2017-04-03 01:15] VITALS: BP 105/63
--- NOTE | 2017-04-03 03:07 | NUR ---
PT IN BED RESTING WITH EYES CLOSED WITH 0 S/SX OF DISTRESS/DISCOMFORT NOTED. BREATHING NORMAL AND UNLABORED. CALL LIGHT IN REACH. WILL CONT POC.
--- NOTE | 2017-04-03 03:35 | NUR ---
PT DRY. REPOSITIONED WITH PILLOW FOR COMFORT. DENIES PAIN. CALL LIGHT IN REACH. WILL CONT POC
[2017-04-03 04:30] VITALS: BP 118/61
--- NOTE | 2017-04-03 06:23 | NUR ---
WALKED INTO PTS ROOM AND PT HAD TOOTH PASTE ALL AROUND HER MOUTH. SHE STATED THAT SHE TRIED TO BRUSH HER TEETH. TOOTH PASTE CLEANED OFF FROM PT. PT AWAKE AND DENIES ANY NEEDS AT THIS TIME. CALL LIGHT IN REACH. WILL CONT POC.
[2017-04-03 06:52] LABS: BASOPHILS 0.1 % (0-2); EOSINOPHILS 1.4 % (0-7); HEMOGLOBIN 13.3 g/dL (12-16); LYMPHOCYTES 12.7 % (15-50); MCH 29.6 pg (26.0-34.0); MCHC 30.9 g/dL (31.0-37.0); MCV 95.8 fL (80.0-100.0); MEAN PLATELET VOLUME 10.7 fL (7.4-10.4); MONOCYTES 5.8 % (2-11); PLATELET COUNT 170 10x3/uL (130-400); RBC 4.49 10x6/uL (4.00-5.40); RDW 15.1 % (11.5-14.5)
[2017-04-03 07:10] LABS: CALC OSMOLALITY 282 mosm/kg (275-300); CALCIUM 8.3 mg/dL (8.5-10.1); CARBON DIOXIDE 39.7 mmol/L (21.0-32.0); CHLORIDE - SERUM 102 mmol/L (98-107); CREATININE - SERUM 0.7 mg/dL (0.6-1.3); GLUCOSE 132 mg/dL (74-106); POTASSIUM - SERUM 3.9 mmol/L (3.5-5.1); SODIUM 140 mmol/L (136-145); UREA NITROGEN 17 mg/dL (7-18); eGFR NON AFRICAN AMERICAN 85 mL/min (90-120)
--- NOTE | 2017-04-03 08:00 | NUR ---
AM ROUNDS COMPLETED. PT A&O RESTING QUIETLY IN BED. PT VERY FAMILIAR WITH SITUATION AND HOSPITAL PROCESS AND IS OFTEN READMITTED FOR RESPIRATORY ISSUES AND HIGH BS HOWEVER PT VERY NON-COMPLIANT. PT STATES "I DO REALLY ENJOY SEEING YOU GUYS AND IM JUST HUNGRY SO MY BLOOD SUGAR WAS HIGH" PT RESTING AND DENIES ANY CURRENT PAIN OR NEEDS AT THIS TIME. CL IN REACH, BED IN LOWEST, SIDE RAILS X2. WILL CPOC.
--- NOTE | 2017-04-03 10:16 | NUR ---
PT AWAKE BILATERAL DIMINISHED BREATH SOUNDS. SPO2 93 ON OXIMIZER. STRESSED IMPORTANCE ON THE APPLICATION AND ADMINISTRATION OF SUPPLEMENTAL OXYGEN. PT AND CAREGIVER AGREE AND VERBILZIZE UNDERSTANDING
[2017-04-03 10:26] VITALS: BP 116/62
--- NOTE | 2017-04-03 11:15 | NUR ---
FSBS 298 PT REC'D 10 UNITS OF INSULIN PER SS. PT SITTING UP IN BED WITH CAREGIVER AT BEDSIDE. RR NONLABORED WITH OXYMIZER IN PLACE @3L WITH PULSE OX OF 97% PT DENIES ANY CURRENT PAIN OR NEEDS. CL IN REACH, BED IN LOWEST, SIDE RAILS X2. WILL CPOC.
[2017-04-03 12:00] VITALS: BP 111/63
[2017-04-03 13:58] VITALS: Ht 157.5 cm; Wt 55.8 kg
[2017-04-03 14:23] LABS: CKMB 2.2 U/L (0.0-3.6); CREATINE KINASE 82 UL (21-215)
--- NOTE | 2017-04-03 14:30 | NUR ---
PT VERY NONCOMPLIANT WITH DIET AND DEMANDING A COKE. I PROVIDED PT WITH A DIET COKE AND ENCOURAGED HER TO FOLLOW HER DIET. PT STATES "I NEVER DO, SO I NEVER WILL"
[2017-04-03 17:43] VITALS: BP 139/74
[2017-04-03 19:30] LABS: CKMB 1.7 U/L (0.0-3.6); CREATINE KINASE 70 UL (21-215)
--- NOTE | 2017-04-03 19:35 | NUR ---
RECEIVED REPORT, WILL ASSUME CARE OF PT, PT WATCHING TV, DENIES ANY NEEDS AT THIS TIME, BED IS LOW, SRX2, CALL LIGHT IN REACH, WILL CONTINUE PLAN OF CARE
[2017-04-03 19:44] LABS: TROPONIN-I 0.068 ng/mL (0.000-0.060)
[2017-04-03 20:00] VITALS: BP 109/55
--- NOTE | 2017-04-03 21:23 | NUR ---
[id number] 8 UNITS PER ORDERS
[2017-04-04 01:40] LABS: CKMB 1.5 U/L (0.0-3.6); CREATINE KINASE 53 UL (21-215)
[2017-04-04 01:42] LABS: TROPONIN-I 0.065 ng/mL (0.000-0.060)
--- NOTE | 2017-04-04 03:43 | NUR ---
ASSESSMENT COMPLETE, PT SLEEPING, BED IS LOW, SRX2, BED ALARM IS ON, CALL LIGHT IN REACH, WILL CONTINUE PLAN OF CARE
--- NOTE | 2017-04-04 03:51 | NUR ---
RESTING IN BED WITH NO DISTRESS. RESPS EVEN/NONLABORED. CPOC.
[2017-04-04 04:09] LABS: BASOPHILS 0.2 % (0-2); EOSINOPHILS 1.8 % (0-7); HEMOGLOBIN 12.2 g/dL (12-16); IMMATURE GRANULOCYTES 0.7 % (0-5); MCH 30.2 pg (26.0-34.0); MCHC 31.3 g/dL (31.0-37.0); MCV 96.5 fL (80.0-100.0); NEUTROPHILS 73.3 % (40-80); PLATELET COUNT 149 10x3/uL (130-400); RBC 4.04 10x6/uL (4.00-5.40); RDW 15.1 % (11.5-14.5); WBC 8.7 10x3/uL (4.8-10.8)
[2017-04-04 04:15] LABS: CALCIUM 7.8 mg/dL (8.5-10.1); CARBON DIOXIDE 37.6 mmol/L (21.0-32.0); CHLORIDE - SERUM 100 mmol/L (98-107); GLUCOSE 135 mg/dL (74-106); POTASSIUM - SERUM 3.8 mmol/L (3.5-5.1); SODIUM 139 mmol/L (136-145)
[2017-04-04 04:23] LABS: CALC OSMOLALITY 279 mosm/kg (275-300); CREATININE - SERUM 0.5 mg/dL (0.6-1.3); UREA NITROGEN 12 mg/dL (7-18)
[2017-04-04 04:24] LABS: eGFR NON AFRICAN AMERICAN > 90 mL/min (90-120)
[2017-04-04 05:11] VITALS: BP 147/75
--- NOTE | 2017-04-04 07:40 | NUR ---
AM ROUNDING- RECEIVED REPORT FROM BLENDING COORDINATOR NURSE DARLINE. PT IS CURRENTLY SITTING UP IN BED WITH EYES OPEN RESTING. PT DENIES ANY PAIN/DISCOMFORT AT CURRENT TIME. ON OXIMIZER AT 3L. ON MONITOR SHOWING ST, HR 108. NO IV ACCESS CURRENTLY, PER JELENA GREGORIO PTS IV INFILTRATED AND IV INSERTION WAS ATTEMPTED X1 THAT WAS NOT SUCESSFUL. WILL ATTEMPT TO RESITE IV CATHETER. BED IS IN LOW POSITION, SIDE RAILS ARE UP X2, CALL LIGHT IS IN REACH, AND BED ALARM IS ON. WILL CONTINUE TO MONITOR AND CONTINUE WITH PLAN OF CARE.
[2017-04-04 09:12] VITALS: BP 124/80
--- NOTE | 2017-04-04 10:18 | NUR ---
PENNY ARMSTRONG, VASCULAR ACCESS NURSE SITED PT TO LEFT WRIST WITH IV CATHETER. IV FLUIDS HOOKED UP AND STARTED ORDERED.
[2017-04-04] MEDS ORDERED: JANUVIA50 MG PO (15:14)
[2017-04-04] MEDS ORDERED: MACROBID100 MG PO (15:14)
--- NOTE | 2017-04-04 16:16 | NUR ---
PTS CAREGIVER STATES SHE HAS TO GO BACK HOME TO GET VEHICLE WITH 02 IN IT. CAREGIVER STATES IT WILL BE APROX 1 HOUR UNTIL SHE RETURNS. CAREGIVER INFORMED THAT D/C PAPERWORK WILL BE DONE WHEN SHE GETS BACK.
[2017-04-04 16:20] VITALS: BP 132/59
--- NOTE | 2017-04-04 16:29 | NUR ---
Patient Name: LALIT OROZCO Admission Status: ER Accout number: [id number] Admission Date: 04-02-2017 : 1935 Admission Diagnosis:TYPE 2 DIABETES MELLITUS WITH HYPERGLYCEMIA Attending: GADIEL Current LOS: 2 Anticipated DC Date: 04-04-2017 Planned Disposition: Home with Home Health Primary Insurance: MEDICARE A & B PLANNED EXTERNAL PROVIDER: [facility] Discharge Planning Comments: * Is the patient Alert and Oriented? Yes 0 * How many steps to enter\exit or inside your home? NONE 0 * PCP DR. HOGAN 0 * Pharmacy [facility] 0 * Preadmission Environment Home with Family 0 * ADLs Partial Dependent 0 * Partial ADLs (Assistance needed) Medication Management 0 * Equipment Cane Nebulizer Other Oxygen Shower Chair Wheelchair 0 * Other Equipment SHILA SCOOTER HOME AND PORTABLE OXYGEN [facility] - MEDICAL EQUIPMENT PROVIDER PREFERENCE 0 * List name and contact numbers for known caregivers / representatives who currently or will assist patient after discharge: LAZ GONZALEZ, DAUGHTER, 0 * Community resources currently utilized Home Health Private Duty Care 0 * Please name any agencies selected above. [facility], DAILY (PT'S DAUGHTER STAYS WITH PT ON NIGHTS / WEEKENDS) 0 * Additional services required to return to the preadmission environment? Yes * Can the patient safely return to the preadmission environment? Yes 0 * Has this patient been hospitalized within the prior 30 days at any hospital? Yes 0 CM RECEIVED DISCHARGE AND HOME HEALTH ORDERS. CM MET WITH PT AND CAREGIVER IN ROOM TO DISCUSS DISCHARGE PLANNING AND NEEDS. PT REPORTS SHE TOLD THE DOCTOR SHE WANTS TO GO HOME TODAY. PT REPORTS LIVING AT HOME INDEPENDENTLY WITH HER ADULT DAUGHTER AND CAREGIVERS EVERY DAY WHILE HER DAUGHTER IS AT WORK. PT HAS ALL NEEDED MEDICAL EQUIPMENT FROM [facility]. PT HAS HOME HEALTH WITH [facility] AND WANTS IT TO RESUME. PT DENIES DISCHARGE NEEDS, CAREGIVER REPORTS SHE WILL BE DRIVING PT HOME TODAY AT DISCHARGE, BUT WILL HAVE TO GO HOME AND DIRECTOR CLIENT SERVICES THE CAR AND PORTABLE OXYGEN. CAREGIVER REPORTS CONCERN OF DISCHARGE TODAY, STATES THAT PT HAS RECURRING UTI'S, WAS TOLD BY THE DOCTOR THAT SHE MAY BE SEPTIC AND THAT PT'S BLOOD SUGAR IS NOT CONTROLLED AT HOME. CM NOTIFIED MIK LANDRY OF CONCERNS STATED. PT AND CAREGIVER INFORMED THAT THE NURSE PRACTITIONER HAD BEEN NOTIFIED OF CONCERNS. IMPORTANT MESSAGE FROM MEDICARE PROVIDED AND EXPLAINED. CM CALLED [facility], , WAS NOTIFIED BY SOFI THAT PT HAD BEEN DISCHARGED FROM SERVICE, [facility] WILL NOT ACCEPT BACK IT IS THERE OPINION THAT PT IS MORE APPROPRIATE FOR HOSPICE CARE. CM NOTIFIED PT AND CAREGIVER IN ROOM. PT INSTRUCTED CM TO CALL HER DAUGHTER FOR ANOTHER HOME HEALTH CHOICE PT IS NOT INTERESTED IN HOSPICE SERVICES. CM CALLED LAZ GONZALEZ, DAUGHTER, , DISCUSSED DISCHARGE AND HOME HEALTH. LAZ CHOSE [facility] AND WANTS TO SPEAK TO THE DOCTOR OR NURSE REGARDING DISCHARGE HOME WITH CONCERNS THAT PT'S BLOOD SUGAR CANNOT BE CONTROLLED AND STATED THE EMERGENCY ROOM IS NOT AN APPROPRIATE PLACE TO REGULATE MOM'S BLOOD SUGAR. CM NOTIFIED MIK LANDRY AND DR. CARRERA, PROVIDED [employer]STON NUMBER TO MIK LANDRY TO CALL. CM CALLED [facility], , SPOKE TO KYM AND PROVIDED REFERRAL AND HISTORY INFORMATION. KYM WILL ACCEPT PT FOR [facility] AND ATTEMPT TO SCHEDULE FOR TOMORROW ADMIT. CM FAXED REFERRAL TO [facility] AT [phone]. CM NOTIFIED PT IN ROOM WHO REPORTS HER CAREGIVER TO BE ON THE WAY HOME TO GET THE CAR TO TRANSPORT PT HOME TODAY. NO FURTHER NEEDS IDENTIFIED FOR DISCHARGE HOME. Bindery Chief: Oli Bates
--- NOTE | 2017-04-04 17:52 | NUR ---
[facility]COLN CARDONA AND I ASSISTED PT TO CHAIR. PT STATES SHE IS GOING TO STAY IN CHAIR. CURRENTLY AWAITING CAREGIVER TO RETURN TO D/C PT. NO NEED AT CURRENT TIME. CALL LIGHT IS IN REACH.
[2017-04-04 17:59] VITALS: BP 118/64
--- NOTE | 2017-04-04 18:19 | NUR ---
D/C INSTRUCTIONS EXPLAINED TO PT AND CAREGIVER. D/C PAPERWORK SIGNED BY PT AND PLACED IN CHART. IV TO LEFT WRIST/FOREARM REMOVED WITH CATH TIP INTACT. COVERED SITE WITH 2X2 GAUZE AND SECURED WITH TAPE. CAREGIVER BROUGHT PTS HOME 02 TANK TO TRANSPORT PT WITH 02 HOME (PT LIVES WITH DAUGHTER). [facility] IS TAKING PT DOWN NOW TO BE D/C VIA WHEELCHAIR.
--- NOTE | 2017-04-04 18:50 | NUR ---
1800- PT D/C VIA WHEELCHAIR WITH CAREGIVER.
== END 2017-04-04 18:00 | disposition home health service (06) | DRG 638 ==
LOC: D.ER 12:01 → D.M2 16:41
PROVIDERS: Emergency Medicine; Family Medicine; Nurse Practitioner Family; ADMIT Emergency Medicine
DX: E11.65 Type 2 diabetes mellitus with hyperglycemia (principal); E87.1 Hypo-osmolality and hyponatremia; N39.0 Urinary tract infection, site not specified; F17.203 Nicotine dependence unspecified, with withdrawal; F31.10 Bipolar disorder, current episode manic without psychotic features, unspecified; F02.81 Dementia in other diseases classified elsewhere, unspecified severity, with behavioral disturbance; I50.9 Heart failure, unspecified; J44.9 Chronic obstructive pulmonary disease, unspecified; Z86.718 Personal history of other venous thrombosis and embolism; Z85.118 Personal history of other malignant neoplasm of bronchus and lung; Z86.711 Personal history of pulmonary embolism; Z79.01 Long term (current) use of anticoagulants; E78.5 Hyperlipidemia, unspecified; G30.9 Alzheimer's disease, unspecified; Z91.11 Patient's noncompliance with dietary regimen; B96.20 Unspecified Escherichia coli [E. coli] as the cause of diseases classified elsewhere

== ENCOUNTER 2017-04-12 15:12 | Inpatient (IN) | payer MEDICARE, OTHER ==
[~2017-04-12] VITALS: Ht 157.5 cm; Wt 62.0 kg
--- NOTE | ~2017-04-12 | EC ---
PATIENT:LALIT OROZCO DATE OF SERVICE: 04/12/17 SEX: F MEDICAL RECORD: [id number] DATE OF : 35 LOCATION:[facility] D230 AGE OF PATIENT: 81 ADMISSION DATE: 04/12/17 REFERRING PHYSICIAN: INTERPRETING PHYSICIAN: JOHNNIE CRAFT MD ECHOCARDIOGRAM REPORT ECHO CHARGES 4 ECHO COMPLETE CLINICAL DIAGNOSIS: HEART FAILURE/COPD ECHOCARDIOGRAPHIC MEASUREMENTS (adult normal given) AC root (d.<3.7cm) 3.5 cm LV Septum d (<1.2 cm> 1.2 cm Valve Excursion 1.4 cm LV Septum (systole) 1.4 cm Left Atria (s.<4.0cm> 3.4 cm LVPW d(<1.2cm) 1.3 cm RV (d.<2.3cm) 5.0 cm LVPW (sytole) 1.6 cm LV diastole(<5.6CM) 4.3 cm MV E-F(>70mm/sec) cm LV systole 2.5 cm LVOT Diameter 0.9 cm MV exc.(>10mm) 1.2 cm Est.ejection fraction (50-75%) % Pericardial Effusion N DOPPLER: LVIT cm/sec A 154 cm/sec E 93.0 cm/sec LA cm/sec RVSP 50 mmHg LVOT 85 cm/sec AOP1/2T m/s Asc. Ao 171 cm/sec RVOT cm/sec RA cm/sec PA 103 cm/sec AV Gradient Peak 11.65mmHg AV Mean 6.25 mmHg AV Area 0.4 cm MV Gradient Peak 11.70mmHg MV Mean 4.17 mmHg MV Area cm COMMENTS: Flower Shop Laborer/Designer: 2 LESLIE ARCHIBALD Room Service Attendant: 4 Dr. Craft TAPE# PACS DATE OF SERVICE: 04/13/2017 PROCEDURE: Transthoracic echocardiogram. FINDINGS: 1. Left ventricle: There is left ventricular hypertrophy, it is concentric in nature. She has preserved LV systolic function with an ejection fraction of 60%-65%. 2. The mitral valve is thickened, the posterior mitral valve leaflet is frozen; however, there is only zzmo-tf-gtutfdac mitral regurgitation appreciated on this ECHOCARDIOGRAM REPORT [id number] LALIT OROZCO study. 3. The right ventricle is markedly enlarged. In fact, it is larger than the left ventricle and it is hypokinetic in its free border and decreased function. 4. The aortic valve is thickened, and there appears to be fusion of the left coronary cusp and the noncoronary cusp along the outer areas of that valvular apparatus; however, there is no evidence of significant stenosis based upon the peak pressures. 5. The right atrium is dilated. 6. The right ventricular systolic pressure is 60-70 mmHg. 7. The inferior vena cava was not demonstrated on this study. CONCLUSION: The patient does have evidence of left and right ventricular enlargement; however, the right ventricle enlargement is severe with decreased right ventricular function, evidence of severe pulmonary hypertension. There is evidence of degenerative mitral and aortic valve, but there does not appear to be significant regurgitation or stenosis in those valves. TRANSINT:[id number] Voice Confirmation ID: [id number] DOCUMENT ID: [id number] JOHNNIE CRAFT MD CC: [id number] DICTATION DATE: 04/13/17 162 SOLID PLASTERER: 04/13/172112 ADM IN [facility] [address] [id number]
[~2017-04-12 15:12] MED LIST changes: +MACROBID100 MG PO
[2017-04-12 16:13] LABS: BASOPHILS 0.1 % (0-2); EOSINOPHILS 0.1 % (0-7); HEMATOCRIT 39.3 % (36.0-48.0); HEMOGLOBIN 12.4 g/dL (12-16); IMMATURE GRANULOCYTES 1.3 % (0-5); LYMPHOCYTES 7.8 % (15-50); MCH 29.7 pg (26.0-34.0); MCHC 31.6 g/dL (31.0-37.0); MEAN PLATELET VOLUME 10.5 fL (7.4-10.4); MONOCYTES 5.2 % (2-11); NEUTROPHILS 85.5 % (40-80); RBC 4.18 10x6/uL (4.00-5.40); WBC 8.3 10x3/uL (4.8-10.8)
[2017-04-12 16:15] LABS: PLATELET COUNT 245 10x3/uL (130-400)
[2017-04-12 16:51] LABS: ALBUMIN 2.8 g/dL (3.4-5.0); BILIRUBIN - TOTAL 0.36 mg/dL (0.2-1.3); CALCIUM 9.8 mg/dL (8.5-10.1); CREATININE - SERUM 0.9 mg/dL (0.6-1.3); PROTEIN - SERUM 6.5 g/dL (6.4-8.2)
[2017-04-12 16:56] LABS: ANION GAP 3.2 mmol/L (8-16)
[2017-04-12 17:02] LABS: CARBON DIOXIDE 43.8 mmol/L (21.0-32.0); TROPONIN-I 0.237 ng/mL (0.000-0.060)
[2017-04-12 20:00] VITALS: BP 119/64
--- NOTE | 2017-04-12 20:10 | NUR ---
PT BROUGHT TO ICU UNIT VIA RN X1 AND RESPIRATORY X1. PT ALERT AND ORIENTED TO PERSON, TIME, PLACE AND SITUATION. PUPILS 2 MM BRISK REACTION. OBEYS COMMAND WHEN ASKED TO MOVE EXTREMITIES. DAUGHTER LAZ AND CAREGIVER VERONICA AT BEDSIDE. S1S2 PRESENT. RADIAL AND POPLITEAL PULSES PALP. TELEMETRY MONITORING RATE OF 96. TRACE EDEMA NOTED ON LOWER EXTREMITIES BILAT. BIPAP MACHINE AT 40%. BS HYPOACTIVE X4. ABDOMINAL APPEARANCE ROUND. LT AC PIV, PATENT, DRESSING ADHERED TO SKIN. MUCOUS MEMBRANES MOIST. BRUISES NOTED IN ARMS BILAT. HANDS AND FEET COOL TO THE TOUCH, AND REDDENED. REST OF BODY WARM. BUTTOCK IS REDDENED AND EXCORIATED. SEE ADMISSION ASSESSMENT FOR DETAILS. PT DENIES NEEDS AT THIS TIME. CALL LIGHT WITHIN REACH. BED IN LOWEST POSITION. WILL CONTINUE TO MONITOR.
[2017-04-12 21:00] VITALS: BP 120/71
--- NOTE | 2017-04-12 21:00 | NUR ---
DAUGHTER AND CAREGIVER AT BEDSIDE. PT DENIES NEEDS AT THIS TIME. REPOSTIONED FOR COMFORT. CALL LIGHT WITHIN REACH. WILL CONTINUE TO MONITOR.
[2017-04-12 22:00] VITALS: BP 121/71
[2017-04-12 22:20] VITALS: BP 119/64; BMI 25.0
[2017-04-12 23:00] VITALS: BP 124/77
--- NOTE | 2017-04-12 23:00 | NUR ---
REASSESSMENT COMPLETED PER FLOW SHEET, SEE FOR DETAILS. PT LAYING IN BED RESTING, DENIES NEEDS AT THIS TIME. CALL LIGHT WITHIN REACH. BED IN LOWEST POSITION. WILL CONTINUE TO MONITOR.
[2017-04-13] VITALS (24 sets, daily range): BP systolic 92–142; BP diastolic 45–105; Ht 157.5 cm; Wt 62.0 kg
--- NOTE | 2017-04-13 01:00 | NUR ---
PT LAYING IN BED RESTING, DENIES NEEDS AT THIS TIME. VSS. BED IN LOWEST POSITION. WILL CONTINUE TO MONITOR.
--- NOTE | 2017-04-13 03:00 | NUR ---
REASSESSMENT COMPLETED PER FLOW SHEET, SEE FOR DETAILS. VSS. DENIES NEEDS AT THIS TIME. CALL LIGHT WITHIN REACH. WILL CONTINUE TO MONITOR.
[2017-04-13 03:53] LABS: BASOPHILS 0.1 % (0-2); EOSINOPHILS 0.4 % (0-7); HEMOGLOBIN 12.2 g/dL (12-16); IMMATURE GRANULOCYTES 0.8 % (0-5); LYMPHOCYTES 7.6 % (15-50); MCH 29.2 pg (26.0-34.0); MCHC 31.3 g/dL (31.0-37.0); MCV 93.3 fL (80.0-100.0); MEAN PLATELET VOLUME 9.9 fL (7.4-10.4); MONOCYTES 1.2 % (2-11); NEUTROPHILS 89.9 % (40-80); PLATELET COUNT 223 10x3/uL (130-400); RBC 4.18 10x6/uL (4.00-5.40); RDW 14.9 % (11.5-14.5); WBC 7.2 10x3/uL (4.8-10.8)
[2017-04-13 04:26] LABS: CALCIUM 8.9 mg/dL (8.5-10.1); CREATININE - SERUM 0.8 mg/dL (0.6-1.3); MAGNESIUM - SERUM 1.3 mg/dL (1.8-2.4); PHOSPHOROUS 3.3 mg/dL (2.5-4.9); POTASSIUM - SERUM 3.8 mmol/L (3.5-5.1)
[2017-04-13 04:27] LABS: ANION GAP 1.1 mmol/L (8-16); TROPONIN-I 0.211 ng/mL (0.000-0.060)
[2017-04-13 04:28] LABS: CARBON DIOXIDE 43.7 mmol/L (21.0-32.0)
--- NOTE | 2017-04-13 06:00 | NUR ---
0600 DR. GARCIA PAGED FOR CONSULT. [address] DR[address] CHICAS RETURNED CALL, INFORMED HIM OF ELEVATED TROPONIN. NO NEW ORDERS RECEIVED AT THIS TIME. ASK FAMILY IF PT HAS SEEN A JUVENILE OFFICER, IF NOT, CONTACT DR. CHICAS.
--- NOTE | 2017-04-13 07:00 | NUR ---
SHIFT ASSESSMENT COMPLETED, ON BIPAP, CONFUSION TO WHY SHE HAS TO WEAR IT, REITERATED BUT CONTINUES TO ATTEMPT TO PULL OFF, VSS, DENIES PAIN, WILL CONTINUE TO MONITOR
--- NOTE | 2017-04-13 08:59 | NUR ---
PIV TO L AC PULLED OUT BY PT, RESTARTED TO L FOREARM, FLUSHES WELL, REMOVED BIPAP TO TAKE MEDICATIONS AND O2 SAT DROPS TO 50-60S, REPLACED MASK, REPOSITIONED, FSBS 276, AWAITING INSULIN FROM PHARMACY, WILL CONTINUE TO MONITOR
--- NOTE | 2017-04-13 11:13 | NUR ---
SOTO CATH INSERTED VIA STERILE TECHNIQUE, TOLERATED WELL, WILL REMOVE IN [address] CRAFT
--- NOTE | 2017-04-13 11:43 | NUR ---
* Is the patient Alert and Oriented? Yes 0 * How many steps to enter\exit or inside your home? Ramp 0 * PCP Dr. Hurley 0 * Pharmacy [facility] 0 * Preadmission Environment Home with Family 0 * ADLs Partial Dependent 0 * Partial ADLs (Assistance needed) Ambulation Bathing Dressing Medication Management Toileting Transfers 0 * Equipment Bedside [place] Bed Nebulizer Oxygen Rolling Walker Shower Chair Wheelchair 0 * List name and contact numbers for known caregivers / representatives who currently or will assist patient after discharge: Mila Beauchamp [phone] Devon Alberts [phone] 0 * Community resources currently utilized Home Health Other Private Duty Care 0 * Please name any agencies selected above. [facility] 0 * Additional services required to return to the preadmission environment? No * Is the patient Alert and Oriented? Yes 0 * How many steps to enter\exit or inside your home? Ramp 0 * PCP Dr. Hurley 0 * Pharmacy [facility] 0 * Preadmission Environment Home with Family 0 * ADLs Partial Dependent 0 * Partial ADLs (Assistance needed) Ambulation Bathing Dressing Medication Management Toileting Transfers 0 * Equipment Bedside [place] Bed Nebulizer Oxygen Rolling Walker Shower Chair Wheelchair 0 * List name and contact numbers for known caregivers / representatives who currently or will assist patient after discharge: Mila Beauchamp [phone] Devon Alberts [phone] 0 * Community resources currently utilized Home Health Other Private Duty Care 0 * Please name any agencies selected above. [facility] 0 * Additional services required to return to the preadmission environment? No
--- NOTE | 2017-04-13 13:00 | NUR ---
PT REPOSITIONED, VSS, DENIES PAIN, ON OXYMIZER AND TOLERATING WELL, WILL CONTINUE TO MONITOR
--- NOTE | 2017-04-13 15:00 | NUR ---
PT REPOSITIONED, VSS, DENIES PAIN, SNACK PROVIDED PER REQUEST, NO NEEDS NOTED
--- NOTE | 2017-04-13 17:00 | NUR ---
PT REPOSITIONED, VSS, DINNER BROUGHT BY DAUGHTER, WILL CONTINUE TO MONITOR
--- NOTE | 2017-04-13 17:30 | NUR ---
SOTO CATHETER DCD, TOLERATED WELL
--- NOTE | 2017-04-13 19:00 | NUR ---
REPORT RECEIVED. SHIFT ASSESSMENT COMPLETE PER FLOW SHEET. PT LAYING IN BED, EATING NO PROBLEMS NOTED. PUPILS 2MM BRISK REACTION BILAT. ALERT AND ORIENTED. 10 L 02 VIA OXIMYZER. S1S2 PRESENT. RADIAL AND PEDAL PULSES PALP BILAT. +1 EDEMA NOTED TO LOWER EXTREMITIES BILAT. TELEMETRY MONITORING RATE OF 89. BS ACTIVE X4. MUCOUS MEMBRANES MOIST. SKIN WARM AND DRY TO THE TOUCH. BRUISES NOTED IN ARMS BILAT. REDDENED/EXCORIATED NOTED TO BUTTOCK. DENIES PAIN. LT FOREARM PIV. SCD'S ON. SEE FLOW SHEET FOR DETAILS. DENIES NEEDS. CALL LIGHT AND BELONGINGS WITHIN REACH. BED IN LOWEST POSITION. WILL CONTINUE TO MONITOR.
--- NOTE | 2017-04-13 20:46 | NUR ---
MEDS ADMINISTERED PER EMAR. PT DENIES NEEDS AT THIS TIME. CALL LIGHT WITHIN REACH. WILL CONTINUE TO MONITOR.
--- NOTE | 2017-04-13 21:00 | NUR ---
PT LAYING IN BED, COMPLETE BED BATH GIVEN. COMPLETE BED LINENS CHANGED. NEW GOWN PROVIDED. REPOSITIONED FOR COMFORT. DENIES NEEDS AT THIS TIME. CALL LIGHT AND BELONGINGS WITHIN REACH. WILL CONTINUE TO MONITOR.
--- NOTE | 2017-04-13 21:15 | NUR ---
CAREGIVER AT BEDSIDE. UPDATE GIVEN. QUESTIONS ANSWERED. PT DENIES NEEDS AT THIS TIME. WILL CONTINUE TO MONITOR.
--- NOTE | 2017-04-13 23:00 | NUR ---
REASSESSMENT COMPLETED PER FLOW SHEET, SEE FOR DETAILS. PT INCONTINENT OF STOOL AND URINE, PT CLEANED, COMPLETE BED LINENS CHANGED, NEW GOWN PROVIDED, PROTECTIVE UNDERWEAR PROVIDED PER REQUEST. REPOSITIONED FOR COMFORT. DENIES FURTHER NEEDS AT THIS TIME. CALL LIGHT WITHIN REACH. WILL CONTINUE TO MONITOR.
[2017-04-14] VITALS (14 sets, daily range): BP systolic 84–118; BP diastolic 44–85
--- NOTE | 2017-04-14 01:00 | NUR ---
PT LAYING IN BED RESTING. NO DISTRESS NOTED. WILL CONTINUE TO MONITOR.
--- NOTE | 2017-04-14 03:51 | NUR ---
BIPAP MACHINE ALARMING, PT PULLING TUBE OFF OF MASK, TEACHING PROVIDED ABOUT THE NEED TO KEEP IT ON. VERBALIZES UNDERSTANDING. WILL CONTINUE TO MONITOR.
--- NOTE | 2017-04-14 05:00 | NUR ---
PT INCONTINENT OF URINE AND STOOL. BATHED PT. COMPLETE BED LINENS CHANGED. NEW HOSPITAL GOWN PROVIDED. REPOSITIONED FOR COMFORT. CALL LIGHT WITHIN REACH. WILL CONTINUE TO MONITOR.
--- NOTE | 2017-04-14 06:00 | NUR ---
PT LAYING IN BED RESTING. NO VISITORS AT THIS TIME. WILL CONTINUE TO MONITOR.
--- NOTE | 2017-04-14 06:26 | NUR ---
FAMILY AT BS. PT UP IN CHAIR. FAMILY REPORTS THEY WANT TO ASSIST PT WITH BATH TODAY. VSS.
--- NOTE | 2017-04-14 07:00 | NUR ---
PT ATTEMPTING TO SLEEP AT THIS TIME. WILL ALLOW PT TO REST PER REQUEST. NORMAL SINUS ON MONITOR. O2 SAT STABLE AND O2 DECREASED TO 3L OXYMIZER, WILL CONTINUE TO WEAN TOLERATED. DENIES PAIN AT THIS TIME. COMPLETE SHIFT ASSESSMENT DOCUMENTED PER FLOWSHEET. WILL CONTINUE TO MONITOR FOR CHANGES IN PT STATUS. VITAL SIGNS STABLE.
--- NOTE | 2017-04-14 09:00 | NUR ---
PT SITTING UP AND EATING BREAKFAST INDEPENDENTLY. FAMILY AT BEDSIDE, UPDATE GIVEN. WILL CONTINUE TO MONITOR
--- NOTE | 2017-04-14 11:00 | NUR ---
SPOKE WITH DR RESENDEZ AND HE STATES WE MAY TRANSFER PT TO FLOOR AT THIS TIME. WILL PUT ORDER INTO COMPUTER. PT NOTIFIED OF TRANSFER. NO COMPLAINTS, WILL CONITNUE TO MONITOR
--- NOTE | 2017-04-14 11:00 | NUR ---
NUTRITION F/U CHART REVIEWED. SPEECH THERAPY RESULTS NOTED. PT NOW ON [facility] SOFT DIET. WILL PROVIDE DIET, MONITOR PT PROGRESS. RD FOLLOWING
--- NOTE | 2017-04-14 14:55 | NUR ---
PT TRANSFERRED TO MED/SURG ROOM 2226 VIA BED. BELONGINGS SENT WITH PT AND FAMILY AT BEDSIDE. PT SWITCHED TO 4L NC UPON ARRIVAL TO FLOOR AND O2 SAT STABLE. REPORT CALLED PRIOR TO TRANSFER. PT UP IN CHAIR AND DENIES NEEDS AT THIS TIME. CALL LIGHT WITHIN REACH
--- NOTE | 2017-04-14 15:19 | NUR ---
PT ADMITTED TO FLOOR FROM ICU. 4L O2 VIA NASAL CANNULA IN PLACE O2 92%. R FOREARM IV WITH NS KVO. B/L SCD'S IN PLACE. PT UP IN CHAIR, FAMILY AT BEDSIDE. NO COMPLAINTS AT THIS TIME.
--- NOTE | 2017-04-14 16:40 | NUR ---
Rehab Prescreening Consult recieved and the chart has been reviewed. She has not had a PT eval as of yet. Recommend a PT/OT eval to assess her functional needs. Spoke to the CM Lola Mcguire re this. Misti Clayton RN Clinical Liaison, rehab
--- NOTE | 2017-04-14 16:51 | NUR ---
PT RESTING IN CHAIR. OXIMIZER IN PLACE 6L O2. NO SIGNS OF ACUTE DISTRESS.
--- NOTE | 2017-04-14 19:00 | NUR ---
REPORT RECIEVED ASSUMED CARE. PATIENT IN BED WITH IV INTACT. NO COMPLAINTS AT THIS TIME. CALL LIGHT WITHIN REACH.
--- NOTE | 2017-04-14 20:30 | NUR ---
PATIENT CHANGED BY XAVIER STARK AND CARLOS BOWLES. STAGE 2 PRESSURE ULCERS NOTED ON LEFT BUTTOCK. MEPILEX DRESSING APPLIED BY CARLOS BOWLES. PATIENT LAYING ON SIDE WITH NO COMPLAINTS. CALL LIGHT WITHIN REACH.
[2017-04-15] VITALS: BP 119/60
--- NOTE | 2017-04-15 00:30 | NUR ---
PATIENT BIPAP OFF TO DRINK COFFEE. EXPLAINED TO PATIENT THAT SHE WOULD HAVE TO PUT IT BACK ON WHEN DONE WITH COFFEE. VERBALIZED UNDERSTANDING. CALL LIGHT WITHIN REACH.
[2017-04-15 04:09] VITALS: BP 103/64
--- NOTE | 2017-04-15 04:58 | NUR ---
PATIENT IN BED WITH BIPAP ON RESTING QUIETLY AT THIS TIME. IV INTACT. CALL LIGHT WITHIN REACH. BSCDS ON AND WORKING.
--- NOTE | 2017-04-15 07:30 | NUR ---
RECIEVED PT DURING WALKING ROUNDS. PT RESTING IN BED WITH NO COMPLAINTS OF PAIN OR DISCOMFORT AT THIS TIME. ASSESSMENT DONE PER FLOWSHEET. BED IN LOW POSITION AND CALL LIGHT WITHIN REACH. WILL CONTINUE TO MONITOR.
[2017-04-15 08:10] VITALS: BP 115/60
[2017-04-15 12:40] VITALS: BP 125/60
--- NOTE | 2017-04-15 14:42 | NUR ---
CALLED HAILEY LANDRY RN ABOUT FSBS OF 430. NO NEW ORDERS RECIEVED.
[2017-04-15 15:57] VITALS: BP 109/50
--- NOTE | 2017-04-15 16:30 | NUR ---
16 TURKISH SOTO PLACED USING STERILE TECHNIQUE. APPROXIMATELY 400CC CLEAR, YELLOW URINE RETURNED TO COLLECTION BAG. SECURED WITH STAT LOCK TO RIGHT THIGH. SHARON CARE PROVIDED. WELL TOLERATED.
[2017-04-15 20:00] VITALS: BP 115/55
[2017-04-16] VITALS: BP 114/51
--- NOTE | 2017-04-16 02:08 | NUR ---
PT CONFUSED TO TIME AND PLACE. GAVE SCHEDULED MEDS. LUNG SOUNDS ARE CLEAR. COUGH IS NON-PRODUCTIVE. OXYGEN @ 3L/NC. PT TAKES OXYGEN OFF AT TIMES AND DESATS DOWN INTO THE 70-80'S. ENCOURAGE PT TO KEEP OXYGEN ON. PT WORE BIPAP FOR SHORT TIME WHILE SLEEPING THEN REFUSED IT. PLACED NC BACK ON PT AND INSTRUCTED HER TO LEAVE IT ON. NO OTHER NEEDS. WILL CONTINUE TO MONITOR.
[2017-04-16 04:00] VITALS: BP 114/54
--- NOTE | 2017-04-16 04:30 | NUR ---
RIGHT FOREARM IV LEAKING. REMOVED CATHETER INTACT. 20 G IV RESITED TO [facility] BY KEDAR HUTCHINS.
[2017-04-16 05:31] LABS: CALC OSMOLALITY 284 mosm/kg (275-300); CALCIUM 9.5 mg/dL (8.5-10.1); CARBON DIOXIDE 37.7 mmol/L (21.0-32.0); CHLORIDE - SERUM 98 mmol/L (98-107); CREATININE - SERUM 0.7 mg/dL (0.6-1.3); MAGNESIUM - SERUM 1.8 mg/dL (1.8-2.4); POTASSIUM - SERUM 4.6 mmol/L (3.5-5.1); SODIUM 139 mmol/L (136-145); UREA NITROGEN 18 mg/dL (7-18); eGFR NON AFRICAN AMERICAN 85 mL/min (90-120)
[2017-04-16 05:45] LABS: GLUCOSE 191 mg/dL (74-106)
--- NOTE | 2017-04-16 07:30 | NUR ---
RECIEVED PT DURING WALKING ROUNDS, PT RESTING IN BED WITH NO VISABLE SIGNS OF PAIN OR DISCOMFORT AT THIS TIME. ASSESSMENT DONE PER FLOWSHEET. BED IN LOW POSITION AND CALL LIGHT WITHIN REACH. WILL CONTINUE TO MONITOR.
[2017-04-16 08:20] VITALS: BP 128/68
--- NOTE | 2017-04-16 11:19 | NUR ---
PT IV INFILTRATED AT THIS TIME. DC'D IV. IV RESITED TO LEFT UPPER ARM BY KEDAR YOUNG. IV FLUIDS RESTARTED.
[2017-04-16 12:43] VITALS: BP 103/65
[2017-04-16 15:44] VITALS: BP 124/67
[2017-04-16 19:00] VITALS: BP 127/61
--- NOTE | 2017-04-17 03:18 | NUR ---
RN NOTE: PT RESTING QUIETLY IN HIGH PEREIRA'S POSITION WITH EYES CLOSED AND UNLABORED BREATHING. O2 IN USE VIA NC AT 2L. IV IN LEFT UPPER ARM PATENT WITH NS INFUSING AT KVO. WILL CONTINUE TO MONITOR FOR NEEDS. CALL LIGHT WITHIN REACH.
[2017-04-17 04:00] VITALS: BP 154/66
[2017-04-17 06:01] LABS: CALCIUM 9.2 mg/dL (8.5-10.1); CARBON DIOXIDE 34.4 mmol/L (21.0-32.0); CHLORIDE - SERUM 96 mmol/L (98-107); CREATININE - SERUM 0.6 mg/dL (0.6-1.3); MAGNESIUM - SERUM 1.9 mg/dL (1.8-2.4); SODIUM 133 mmol/L (136-145); UREA NITROGEN 19 mg/dL (7-18); eGFR NON AFRICAN AMERICAN > 90 mL/min (90-120)
[2017-04-17 06:03] LABS: CALC OSMOLALITY 268 mosm/kg (275-300); GLUCOSE 125 mg/dL (74-106); POTASSIUM - SERUM 5.5 mmol/L (3.5-5.1)
--- NOTE | 2017-04-17 07:55 | NUR ---
PT AOX1 RESP EVEN AND NONLABORED PT DENIES NEEDS AT THIS TIME IV TO LEFT UPPER ARM PATENT AND INTACT AT THIS TIME SRX2 BED AT LOWEST SETTING CALL LIGHT WITHIN REACH WILL CONTINUE TO MONITOR
[2017-04-17 08:54] VITALS: BP 121/65
[2017-04-17 12:30] VITALS: BP 123/60
[2017-04-17 16:36] VITALS: BP 97/63
[2017-04-17 16:59] VITALS: BP 97/63
[2017-04-17 19:00] VITALS: BP 107/60
--- NOTE | 2017-04-17 20:52 | NUR ---
REC'D. IN BED SITTING UP AT 40 DEGREES. RESP. NON LABORED WITH NO RESP. DIFFICULTY OBSERVED.WILL CONTINUE TO MONITOR FOR ANY CHGES IN RESP. STATUS AND FOLLOW CURRENT PLAN OF CARE.
--- NOTE | 2017-04-18 02:00 | NUR ---
PT IN BED WITH NO DISTRESS. RESPIRATIONS EVEN AND UNLABORED. SIDE RAILS X 2. BED IS LOW. CALL LIGHT IN REACH.
[2017-04-18 04:00] VITALS: BP 91/48
[2017-04-18 04:57] LABS: CALC OSMOLALITY 270 mosm/kg (275-300); CALCIUM 9.4 mg/dL (8.5-10.1); CARBON DIOXIDE 36.5 mmol/L (21.0-32.0); CHLORIDE - SERUM 95 mmol/L (98-107); CREATININE - SERUM 0.6 mg/dL (0.6-1.3); GLUCOSE 118 mg/dL (74-106); MAGNESIUM - SERUM 1.7 mg/dL (1.8-2.4); POTASSIUM - SERUM 5.2 mmol/L (3.5-5.1); SODIUM 133 mmol/L (136-145); UREA NITROGEN 23 mg/dL (7-18); eGFR NON AFRICAN AMERICAN > 90 mL/min (90-120)
[2017-04-18 08:18] VITALS: BP 96/51
[2017-04-18 09:01] LABS: BASOPHILS 0 % (0-2); EOSINOPHILS 0.2 % (0-7); HEMATOCRIT 40.1 % (36.0-48.0); HEMOGLOBIN 12.8 g/dL (12-16); IMMATURE GRANULOCYTES 0.4 % (0-5); LYMPHOCYTES 11.8 % (15-50); MCH 29.5 pg (26.0-34.0); MCHC 31.9 g/dL (31.0-37.0); MCV 92.4 fL (80.0-100.0); MEAN PLATELET VOLUME 10.8 fL (7.4-10.4); MONOCYTES 7.2 % (2-11); NEUTROPHILS 80.4 % (40-80); PLATELET COUNT 260 10x3/uL (130-400); RBC 4.34 10x6/uL (4.00-5.40); WBC 10.9 10x3/uL (4.8-10.8)
[2017-04-18 09:11] LABS: ALBUMIN 2.5 g/dL (3.4-5.0); ALKALINE PHOSPHATASE 38 U/L (46-116); ALT (SGPT) 25 U/L (10-68); BILIRUBIN - TOTAL 0.49 mg/dL (0.2-1.3); PROTEIN - SERUM 5.8 g/dL (6.4-8.2)
[2017-04-18 12:44] VITALS: BP 111/70
--- NOTE | 2017-04-18 12:56 | NUR ---
NUTRITION F/U CHART REVIEWED, PT VISIT. TOLERATING ADA MECH SOFT DIET. 25 TO 50% INTAKE RECENT MEALS. WILL CONTINUE TO PROVIDE DIET, ENCOURAGE PO INTAKE. RD FOLLOWNING
--- NOTE | 2017-04-18 15:16 | NUR ---
PT CONFUSED AT TIMES AOX1 SELF. RESP EVEN AND NONLABORED IV TO RIGHT FOREARM PATENT AND INTACT AT THIS TIME SRX2 BED AT LOWEST SETTING CALL LIGHT WITHIN REACH WILL CONTINUE TO MONITOR
[2017-04-18 16:28] VITALS: BP 100/56
--- NOTE | 2017-04-18 17:06 | NUR ---
OT NOTE: PT COMPLETED BED MOB WITH MIN A. PT COMPLETED SUPINE TO SIT WITH MIN A. PT COMPLETED SIMPLE HYGIENE TASKS WITH MIN A. PT COMPLETED BUE AROM EXS FOR INCREASED AX TOLERANCE WITH ADLS. THANK YOU, ARAMIS KIRKPATRICK/Manisha
[2017-04-18 20:00] VITALS: BP 120/63
--- NOTE | 2017-04-18 22:36 | NUR ---
REC'D. IN ED EATING CANDY CALLING TO ABEL CHILDRESS.(CONFUSION) OBSERVED SOME SOB ON MINIMAL ACTIVITY IN BED. NO RESP. DISTRESS OBSERVED. WILL CONTINUE TO MONITOR RESP. STATUS FOR ANY CHGES. AND FOLLOW CURRENT PLAN OF CARE.
[2017-04-19] VITALS: BP 124/66
--- NOTE | 2017-04-19 05:00 | NUR ---
RESTING QUIETLY RESPIRATIONS WITH EASE AND UNLABORED.
[2017-04-19 06:21] LABS: CALC OSMOLALITY 273 mosm/kg (275-300); CALCIUM 8.9 mg/dL (8.5-10.1); CARBON DIOXIDE 35.8 mmol/L (21.0-32.0); CHLORIDE - SERUM 96 mmol/L (98-107); CREATININE - SERUM 0.6 mg/dL (0.6-1.3); GLUCOSE 52 mg/dL (74-106); MAGNESIUM - SERUM 1.6 mg/dL (1.8-2.4); POTASSIUM - SERUM 4.6 mmol/L (3.5-5.1); SODIUM 137 mmol/L (136-145); UREA NITROGEN 20 mg/dL (7-18); eGFR NON AFRICAN AMERICAN > 90 mL/min (90-120)
[2017-04-19 08:48] VITALS: BP 148/73
--- NOTE | 2017-04-19 08:52 | NUR ---
PT AOX1 RESP EVEN AND NONLABORED PT DENIES NEEDS AT THIS TIME IV TO RIGHT FOREARM PATENT AND INTACT SRX2 BED AT LOWEST SETTING CALL LIGHT WITHIN REACH WILL CONTINUE TO MONITOR
[2017-04-19 12:33] VITALS: BP 135/63
[2017-04-19] MEDS ORDERED: ALBUTEROL2.5 MG/3 M UPD (14:18)
[2017-04-19] MEDS ORDERED: ATIVAN2 MG/ML IV (14:18)
[2017-04-19] MEDS ORDERED: BROVANA15 MCG/2 M INH (14:18)
[2017-04-19] MEDS ORDERED: IPRAT-ALBUT 0.5-3 ML UPD (14:18)
[2017-04-19] MEDS ORDERED: MUCINEX DM ER1 EAC1 PO (14:19)
[2017-04-19] MEDS ORDERED: PULMICORT0.5 MG/21 UPD (14:19)
[2017-04-19] MEDS ORDERED: FLUTICASONE PRO16 GM NASAL (14:19)
[2017-04-19] MEDS ORDERED: TESSALON PERLE100 MG PO (14:19)
[2017-04-19] MEDS ORDERED: NYSTATIN1 PWD TOPICAL (14:20)
[2017-04-19] MEDS ORDERED: HUMULIN R100 U/ML SC (14:20)
[2017-04-19] MEDS ORDERED: LANTUS INSULIN10 ML SC (14:20)
[2017-04-19] MEDS ORDERED: PREDNISONE20 MG PO (14:20)
[2017-04-19] MEDS ORDERED: FLORAJEN3 CAPS460 MG PO (14:20)
--- NOTE | 2017-04-19 14:59 | NUR ---
CM REASSESSMENT NOTE: PATIENT HAS BEEN ACCEPTED TO IP REHAB TODAY. FAMILY AWARE
--- NOTE | 2017-04-19 16:33 | NUR ---
REHAB NOTE- VISITED [place] PATIENT AND HER CAREGIVER. THE PATIENT IS TO BE ACCEPTED TO [facility] ACUTE REHAB TODAY. SPOKE WITH DARRELL MARTINEZ. THANK YOU FOR THIS REFERRAL! CARMEN MORALES RN CLINICAL LIAISON, [facility] RE[facility]
[2017-04-19 16:58] VITALS: BP 118/53
--- NOTE | 2017-04-19 17:51 | NUR ---
OT NOTE: PT COMPLETED BUE AROM EXS FOR INCREASED I WITH ADLS. PT REQUIRED MIN A FOR BED MOB. PT COMPLETED SIMPLE GROOMING WITH CGA. THANK YOU, ARAMIS KIRKPATRICK/Manisha
--- NOTE | 2017-04-19 18:54 | NUR ---
PT TAKEN TO REHAB VIA WHEELCHAIR VIA STAFF AT THIS TIME
== END 2017-04-19 18:58 | DRG 177 ==
LOC: D.ER 15:12 → D.ICU 17:20 → D.MS 17:20
PROVIDERS: Emergency Medicine; Internal Medicine Pulmonary Disease; ADMIT Family Medicine
PROC: 5A09457 Assistance with Respiratory Ventilation, 24-96 Consecutive Hours, Continuous Positive Airway Pressure (ICD-10-PCS; principal; 2017-04-12)
DX: J69.0 Pneumonitis due to inhalation of food and vomit (principal); J96.02 Acute respiratory failure with hypercapnia; J96.01 Acute respiratory failure with hypoxia; I21.4 Non-ST elevation (NSTEMI) myocardial infarction; I50.33 Acute on chronic diastolic (congestive) heart failure; J44.1 Chronic obstructive pulmonary disease with (acute) exacerbation; J44.0 Chronic obstructive pulmonary disease with (acute) lower respiratory infection; N39.0 Urinary tract infection, site not specified; Z99.81 Dependence on supplemental oxygen; G30.9 Alzheimer's disease, unspecified; F02.80 Dementia in other diseases classified elsewhere, unspecified severity, without behavioral disturbance, psychotic disturbance, mood disturbance, and anxiety; Z85.118 Personal history of other malignant neoplasm of bronchus and lung; M19.90 Unspecified osteoarthritis, unspecified site; E78.5 Hyperlipidemia, unspecified; E11.9 Type 2 diabetes mellitus without complications; J15.6 Pneumonia due to other Gram-negative bacteria; J15.212 Pneumonia due to Methicillin resistant Staphylococcus aureus; Z86.718 Personal history of other venous thrombosis and embolism; I08.1 Rheumatic disorders of both mitral and tricuspid valves; I27.2 Other secondary pulmonary hypertension; F41.9 Anxiety disorder, unspecified; I50.9 Heart failure, unspecified; E83.42 Hypomagnesemia; F31.9 Bipolar disorder, unspecified

== ENCOUNTER 2017-04-19 19:00 | Inpatient (IN) | payer MEDICARE, OTHER ==
[~2017-04-19] VITALS: Ht 157.5 cm; Wt 64.9 kg
--- NOTE | 2017-04-19 18:55 | NUR ---
RECEIVED PATIENT TO UNIT TO BED 1113A, ACCOMPANIED BY ACUTE UNIT STAFF. PATIENT REQUESTED TO REMAIN UP IN W/C AT BEDSIDE. FRESH WATER WAS PROVIDED. CALL LIGHT IN REACH. W/C BRAKES ARE LOCKED.
[~2017-04-19 19:00] MED LIST changes: +ALBUTEROL2.5 MG/3 M UPD; +BROVANA15 MCG/2 M INH; +FLORAJEN3 CAPS460 MG PO; +FLUTICASONE PRO16 GM NASAL; +HUMULIN R100 U/ML SC; +IPRAT-ALBUT 0.5-3 ML UPD; +LANTUS INSULIN10 ML SC; +MUCINEX DM ER1 EAC1 PO; +NYSTATIN1 PWD TOPICAL; +PREDNISONE20 MG PO; +PULMICORT0.5 MG/21 UPD; +TESSALON PERLE100 MG PO
--- NOTE | 2017-04-19 19:40 | NUR ---
OBTAINED PATIENT'S VS FOR ASSESSMENT. DENIES NEEDS.
[2017-04-19 20:20] VITALS: BP 127/72; BMI 25.0; BMI 26.3
--- NOTE | 2017-04-19 21:00 | NUR ---
TRANSFERRED PATIENT INTO BED. APPLIED SCD'S TO BILAT LEGS AND STARTED SCD PUMP. TOLD PATIENT I WILL RETURN TO PERFORM HER ADMISSION ASSESSMENT AFTER PASSING MEDICATIONS TO MY OTHER PATIENTS. SAYS SHE UNDERSTANDS.
--- NOTE | 2017-04-19 22:50 | NUR ---
HS MES GIVEN TO PATIENT. FSBS 133. TOOK MEDS WHOLE IN APPLESAUCE. TOLD PATIENT I WILL RETURN TO PERFORM HER ASSESSMENT AFTER R/T DELIVERS HER UPDRAFTS MOMENTARILY.
--- NOTE | 2017-04-19 23:50 | NUR ---
ADMISSION ASSESSMENT AND HISTORY COMPLETE. PATIENT EARLIER ATE HER HS SNACK OF MILK AND ARTURO CRACKERS. NOW IS TO DROWSY TO SIGN ADMISSION DOCUMENTS. TOLD HER I'LL PRESENT THEM FOR HER TO SIGN IN THE 3D DESIGNER BEFORE THE END OF SHIFT.
--- NOTE | 2017-04-20 02:25 | NUR ---
RESTING QUEITLY IN BED, EYES CLOSED.
--- NOTE | 2017-04-20 04:30 | NUR ---
PATIENT AWAKE. CONFUSED. REEMPLACED NASAL CANNULA IN NARES. DISENTANGLED PATIENT'S LEFT ARM FROM HER GOWN SLEEVE AND RIGHTED IT.
--- NOTE | 2017-04-20 05:35 | NUR ---
FSBS 202. GAVE PATIENT 12 UNITS HUMULIN SLIDING SCALE INSULIN SC IN LUQ ABDOMEN. REQUESTED AND WAS GIVEN A CUP OF COFFEE. DENIES FURTHER NEEDS. EMPTIED 1950 ML FROM SOTO DRAINAGE BAG.
[2017-04-20 06:02] LABS: BASOPHILS 0 % (0-2); EOSINOPHILS 0 % (0-7); HEMOGLOBIN 13.4 g/dL (12-16); IMMATURE GRANULOCYTES 0.4 % (0-5); LYMPHOCYTES 6.8 % (15-50); MCH 29.2 pg (26.0-34.0); MCHC 31.9 g/dL (31.0-37.0); MCV 91.5 fL (80.0-100.0); MEAN PLATELET VOLUME 10.5 fL (7.4-10.4); MONOCYTES 5.5 % (2-11); NEUTROPHILS 87.3 % (40-80); PLATELET COUNT 270 10x3/uL (130-400); RBC 4.59 10x6/uL (4.00-5.40)
[2017-04-20 06:17] LABS: CALC OSMOLALITY 281 mosm/kg (275-300); CALCIUM 8.9 mg/dL (8.5-10.1); CARBON DIOXIDE 33.6 mmol/L (21.0-32.0); CHLORIDE - SERUM 98 mmol/L (98-107); CREATININE - SERUM 0.6 mg/dL (0.6-1.3); POTASSIUM - SERUM 5.1 mmol/L (3.5-5.1); SODIUM 137 mmol/L (136-145); UREA NITROGEN 17 mg/dL (7-18); eGFR NON AFRICAN AMERICAN > 90 mL/min (90-120)
[2017-04-20 06:24] LABS: GLUCOSE 211 mg/dL (74-106)
--- NOTE | 2017-04-20 08:07 | NUR ---
EATING BREAKFAST IN ROOM. CALL LIGHT IN REACH. DENIES NEEDS.
[2017-04-20 08:48] VITALS: BP 155/84
--- NOTE | 2017-04-20 09:44 | NUR ---
PATIENT IS VERY CONFUSED. TALKING ABOUT LIVING IN A [employer] TYPE OF WORLD. DID NOT KNOW THE DATE, PLACE, OR SITUATION. BED ALARM ON, CALL LIGHT WITHIN REACH.
--- NOTE | 2017-04-20 11:45 | NUR ---
GLUCOSE LEVEL 81. ORANGE JUICE GIVEN. PATIENT SITTING UP IN WHEELCHAIR AT BEDSIDE TO EAT LUNCH. BOX ALARM ON. DAUGHTER IN ROOM WITH PATIENT.
--- NOTE | 2017-04-20 13:00 | NUR ---
OCCUPATIONAL THERAPIST WORKING WITH PATIENT. HELPING PATIENT WITH SHOWER.
[2017-04-20 13:34] VITALS: Ht 157.5 cm; Wt 64.9 kg
--- NOTE | 2017-04-20 15:45 | RHP ---
PATIENT: LALIT OROZCO MEDICAL RECORD: [id number] ACCOUNT: [id number] LOCATION:[facility]1113 : 35 ADMISSION DATE: 04/19/17 REHABILITATION HISTORY AND PHYSICAL EXAMINATION POST ADMISSION PHYSICIAN EXAMINATION Post Admission Physical Examination and History and Physical DATE OF ADMISSION: 04/19/2017 ADMITTING DIAGNOSIS: Acute exacerbation of chronic obstructive pulmonary disease. HISTORY OF PRESENT ILLNESS: The patient is admitted secondary to acute exacerbation of chronic obstructive pulmonary disease. She is an 82-year-old female patient with history of COPD. She is oxygen dependent. She has got a remote history of lung cancer, bipolar, Alzheimer dementia, hyperlipidemia, degenerative joint disease, debility, poorly controlled diabetes, history of right lower extremity DVT and pulmonary embolus. She has been on Eliquis for the last 3 years. She was admitted to the acute care hospital with acute shortness of breath, hypoxia requiring BiPAP and elevations in her fingerstick blood sugars. The patient smoked many years, but recently quit. She is on a nicotine patch at this time. She has had multiple admissions for respiratory problems including bronchitis, pneumonia, COPD and has been on multiple antibiotics including Unasyn, Levaquin and Merrem recently. Chest x-ray on April 12 showed increased interstitial changes bilaterally, left lower lobe greater than right lower lobe. She had a UTI recently has been on Macrodantin. The patient has dyspnea with activity, even in a wheelchair. She is not able to walk at times because of knee issues. She has had no chest pain, pleurisy, angina, or weight loss. The patient has rhinitis and sinusitis. The patient has had no reflux or aspiration precautions, been seen by the speech pathologist in the past. She is normally on 3 liters of O2 over the last 3 weeks, this increased to 5 liters. At times, she was noted to have elevation in her cardiac enzymes during her acute stay; however, she was noted to have significant hypoxic changes on multiple occasions. She and her caregiver stated that she has been doing really well at home after acute rehab stay and continued to ambulate 55 feet with a rolling walker until recently as she had a decline. She was set up with ADLs per her caregiver. She is currently minimum to max assist for ADLs and max assist to total assist for mobility, has been to [facility] for acute rehabilitation in the past and did very well. She regained her strength to be able to return home with her caregiver and daughter who also helps with her at times. COMORBIDITIES: Include oropharyngeal dysphagia, hypoxic and hypercapnic respiratory failure, chronic obstructive pulmonary disease, moderate pulmonary arterial hypertension, history of right lower extremity deep venous thrombosis and pulmonary embolus in the past, had a history of allergic rhinitis, ex-smoker, diabetes, degenerative joint disease, chronic UTI, history of hyperlipidemia, anxiety, debility, pneumonia, shortness of breath, edema, and impaired functional mobility. PAST MEDICAL HISTORY: Significant for weakness, diabetes, CHF, COPD, lung cancer, depression, bipolar disorder, chronic back pain, edema and oxygen dependent O2 and degenerative joint disease. HISTORY AND PHYSICAL [id number] LALIT OROZCO PAST SURGICAL HISTORY: Includes hip surgery bilaterally, hysterectomy and bladder surgery. ALLERGIES: MORPHINE AND LEVAQUIN. CURRENT MEDICATIONS: Include Januvia 50 mg daily, prednisone 30 mg daily, Ditropan XL 5 mg daily. She is on Nicoderm patch. She is on Floranex daily, Lasix 20 mg daily, fluticasone 2 sprays daily. She is on lorazepam 0.5 mg q.8 hours p.r.n. She is currently on an electrolyte protocol at this time. She is on Risperdal 0.25 mg b.i.d., nystatin powder as needed, Singulair 10 mg q.h.s. She is on a high resistant sliding scale with insulin. She is on Lantus 15 units q.h.s., Mucinex D 1 p.o. b.i.d., Aricept 5 mg q.h.s., Pulmicort 0.5 mg b.i.d., Tessalon Perles 100 mg t.i.d. p.r.n., Brovana 15 mcg b.i.d., Eliquis 5 mg b.i.d., and polyethylene glycol 17 grams in 8 ounces of water daily. HABITS: No current alcohol or tobacco use. FAMILY HISTORY: Noncontributory. SOCIAL HISTORY: The patient hopes to return back home and get back to her prior level of functioning with her caregiver and also with her daughter. REVIEW OF SYSTEMS: GENERAL: She does complain of weakness. HEENT She does complain of cold, cough, or congestion. CARDIOVASCULAR: Denies any chest pain. LUNGS: Does complain of shortness of breath. PHYSICAL EXAMINATION: VITAL SIGNS: Stable, afebrile. GENERAL: A well-developed female, who is in no acute distress. She is alert, but somewhat confused. HEENT: Normocephalic and atraumatic. Mucosa moist. TMs are shiny and mobile. NECK: Supple, with no lymphadenopathy. LUNGS: Coarse breath sounds with decreased breath sounds in the bases. CARDIOVASCULAR: Regular rate and rhythm. ABDOMEN: Benign. EXTREMITIES: No clubbing, cyanosis or edema. NEUROLOGIC: Definitely consistent with some dementia. LABORATORY DATA: Her white count is 10.0, H&H 13 and 42, and platelet count was 270. Her sodium is 137, potassium 5.1, BUN and creatinine of 17 and 0.6 and blood sugar is noted to be 211. ASSESSMENT: This is an 82-year-old female patient admitted to rehab with a working diagnosis of acute exacerbation of long-term chronic obstructive pulmonary disease. The patient has potential to make improvement. We instituted the following multidisciplinary therapies including to, but not limited to physical, occupational, respiratory, speech, nutritional services, prosthetics and orthotics. Given her complex condition and risk for more complications, rehabilitation services cannot be provided at a lower level of care such as a longterm facility. PLAN: 1. Admit to [facility] rehab for intensive inpatient therapy to HISTORY AND PHYSICAL [id number] LALIT OROZCO include the following disciplines: A. Physical therapy to improve gait, all transfer skills and bed mobility and modified level. B. Occupational therapy to improve activities of daily living to a modified independent level. C. Case management to assist with discharge planning and placement options. D. Nutrition to assist with nutritional needs. E. Rehabilitation nursing to assist in monitoring the patient's underlying medical conditions and to assist with any type of bowel or bladder management. 2. The patient's current medication and medical care will be continued. 3. The patient will be placed on standard fall precautions. 4. We will work on her mobility and hopefully get her home to her caregiver and daughter soon. 5. Discuss this patient during care team staff meeting this week. TRANSINT:[id number] Voice Confirmation ID: [id number] DOCUMENT ID: [id number] MABEL notes whether there has been none or any medical/functional change since admission: - MABEL attests patient continues to be appropriate for IRF: - BRENNAN ALVA MD at 1545 CC: [id number] DICTATION DATE: 04/20/17 1017 WATER CHEMIST: 04/20/17 1102 ADM IN [facility] [address] [id number]
--- NOTE | 2017-04-20 17:25 | NUR ---
MANFRED HERE AND DELIEVERED C-PAP. CAREGIVER IN ROOM WITH PATIENT.
--- NOTE | 2017-04-20 17:49 | NUR ---
TEN UNITS OF SLIDING SCALE INSULIN GIVEN FOR GLUCOSE LEVEL OF 312
--- NOTE | 2017-04-20 20:47 | NUR ---
ASKED PT ABOUT WEARING BIPAP. PT WILL NOT ANSWER. FILLED RESEVOIR WITH DISTILLED H20. PT STATES SHE IS NOT GOING TO SLEEP TONIGHT SHE IS GOING TO DEMOCRAT WITH ABEL CHILDRESS. HE WILL BE COMING TO SEE HER. I EXPLIANED SHE NEEDS TO SLEEP TONIGHT SO SHE CAN PARTICIPATE IN REHAB TOMORROW, SHE SAYS SHE WILL DEMOCRAT TONIGHT. WILL NOT ANSWER WHEN ASK ABOUT NEEDING HELP WITH BIPAP. LET RN KNOW TO CALL IF PT CHNGES MIND ABOU SLEEPING, PT IS CURRENTLY SITTING UP NOT READY FOR BED AND NOT PLANNING TO GO TO BED.
--- NOTE | 2017-04-20 21:50 | NUR ---
PT STATE:" I AM HUNGRY," AND ALEXANDRE HUIER, APPLE JUICE GIVEN."
[2017-04-20 23:32] VITALS: BP 112/64
--- NOTE | 2017-04-21 01:39 | NUR ---
REST IN BED, BED LOW, EYE CLOSE, CALL LIGHT IN REACH.
--- NOTE | 2017-04-21 04:56 | NUR ---
REST IN BED, EYE CLOSE, CALL LIGHT IN REACH.
[2017-04-21 06:08] LABS: BASOPHILS 0 % (0-2); EOSINOPHILS 1.3 % (0-7); HEMATOCRIT 39.5 % (36.0-48.0); HEMOGLOBIN 12.7 g/dL (12-16); IMMATURE GRANULOCYTES 0.7 % (0-5); LYMPHOCYTES 19.9 % (15-50); MCH 29.1 pg (26.0-34.0); MCHC 32.2 g/dL (31.0-37.0); MCV 90.6 fL (80.0-100.0); MEAN PLATELET VOLUME 10.3 fL (7.4-10.4); MONOCYTES 9.6 % (2-11); NEUTROPHILS 68.5 % (40-80); PLATELET COUNT 249 10x3/uL (130-400); RBC 4.36 10x6/uL (4.00-5.40); RDW 14.9 % (11.5-14.5); WBC 10.3 10x3/uL (4.8-10.8)
[2017-04-21 06:20] LABS: CALC OSMOLALITY 267 mosm/kg (275-300); CALCIUM 8.6 mg/dL (8.5-10.1); CARBON DIOXIDE 36.8 mmol/L (21.0-32.0); CHLORIDE - SERUM 98 mmol/L (98-107); CREATININE - SERUM 0.5 mg/dL (0.6-1.3); POTASSIUM - SERUM 4.7 mmol/L (3.5-5.1); SODIUM 134 mmol/L (136-145); UREA NITROGEN 18 mg/dL (7-18); eGFR NON AFRICAN AMERICAN > 90 mL/min (90-120)
[2017-04-21 06:25] LABS: GLUCOSE 67 mg/dL (74-106)
[2017-04-21 07:40] VITALS: BP 111/50
--- NOTE | 2017-04-21 08:45 | NUR ---
PATIENT ALERT/VERY CONFUSED. BIZZARE IDEAS. TALKING ABOUT ABEL CHILDRESS COMMING IN TO HAVE A LIBERTARIAN. BED ALARM ON. CALL LIGHT WITHIN REACH. ROOM IN VIEW OF NURSING STATION.
--- NOTE | 2017-04-21 11:40 | NUR ---
CAREGIVER IN PATIENTS ROOM. BROUGHT A SLUSH FROM [employer]. GLUCOUSE LEVEL 192. EIGHT UNITS OF SLIDING SCALE INSULIN GIVEN
--- NOTE | 2017-04-21 15:18 | NUR ---
PATIENT BACK IN ROOM AFTER THERAPY. SOTO CATH CARE GIVEN
--- NOTE | 2017-04-21 17:00 | NUR ---
GLUCOSE LEVEL 231, TWELEVE UNITS OF SLIDING SCALE INSULIN GIVEN
--- NOTE | 2017-04-21 20:00 | NUR ---
PT UP IN W/C. WATCHING TV. FSBS ACHS. CHAIR ALARM. O2 @ 3L VIA N/C. CPAP @ NIGHT WHEN SLEEPING. NO IV. CALL LIGHT WITHIN REACH.
[2017-04-21 20:15] VITALS: BP 104/54
--- NOTE | 2017-04-21 21:30 | NUR ---
ASSISTED PATIENT'S NURSE TO REPOSITION HER HIGHER UP IN BED.
--- NOTE | 2017-04-22 01:00 | NUR ---
PT IN BED WITH HOB UP FOR COMFORT. EYES CLOSED. CHEST RISING AND FALLING. BED IN LOWEST POSITION AND CALL LIGHT WITHIN REACH.
--- NOTE | 2017-04-22 04:37 | NUR ---
PT LYING IN BED. EYES CLOSED. CHEST RISING AND FALLING. BED IN LOWEST POSITION AND CALL LIGHT WITHIN REACH.
--- NOTE | 2017-04-22 06:55 | NUR ---
PT LYING IN BED. RESTING QUIETLY. BED IN LOWEST POSITION AND CALL LIGHT WITHIN REACH.
--- NOTE | 2017-04-22 07:09 | NUR ---
RESTING QUIETLY IN BED. NO S/S DISTRESS. CALL LIGHT IN REACH
--- NOTE | 2017-04-22 07:40 | NUR ---
SITTING UP IN BED WATCHING TV. OFFERS NO COMPLAINTS. ASSISTED WITH DENTURES. NO S/SX OF DISTRESS. CALL LIGHT WITHIN REACH. WILL CONTINUE TO MONITOR
[2017-04-22 08:00] VITALS: BP 128/64
--- NOTE | 2017-04-22 09:44 | NUR ---
SITTING UP IN BED PUTTING ON MAKEUP FOR HER "ABEL [employer]". PT IS TALKING ABOUT "FAIRYTALE/UNREALISTIC" THINGS. NOT REALLY MAKING A LOT OF SENSE. ADMINISTERED MEDS WITHOUT DIFFICULTY. CALL LIGHT IN REACH. WILL CONTINUE TO MONITOR
--- NOTE | 2017-04-22 15:00 | NUR ---
SITTING UP IN WHEELCHAIR EATING BOWL OF RICE CRISPIES. OFFERS NO COMPLAINTS. CALL LIGHT WITHIN REACH. WILL CONTINUE TO MONITOR
--- NOTE | 2017-04-22 18:45 | NUR ---
SITTING UP IN WHEELCHAIR. OFFERS NO COMPLAINTS. CALL LIGHT IN REACH
[2017-04-22 20:00] VITALS: BP 117/69
--- NOTE | 2017-04-22 20:00 | NUR ---
PT. SITTING UP IN W/C WATCHING TV. NO VOICED NEEDS AT THIS TIME. SOTO TO BSD WITHOUT PROBLEMS AND SHE HAS HER CALL LIGHT WITHIN REACH.
--- NOTE | 2017-04-22 20:22 | NUR ---
PT IS SITTING IN HER WC IN HER ROOM DRINKING COFFEE, MILK AND ARTURO CRACKERS. NO NEEDS VOICED. SOTO CATH IS PATENT AND DRAINING TO A GRAVITY BAG. O2 IS ON @ 3LPM PER NC. CALL LIGHT AND BEDSIDE TABLE ARE WITHIN EASY REACH.
--- NOTE | 2017-04-22 22:12 | NUR ---
RESTING QUIETLY IN BED WITH EYES CLOSED. RESPS ARE EVEN AND UNLABORED. NO ACUTE DISTRESS NOTED.
--- NOTE | 2017-04-23 00:26 | NUR ---
RESTING IN BED WITH EYES CLOSED.
--- NOTE | 2017-04-23 03:33 | NUR ---
RESTING IN BED WITH EYES CLOSED.
--- NOTE | 2017-04-23 07:35 | NUR ---
SITTING UP IN BED PUTTING ON MAKEUP. NO S/SX OF DISTRESS. ALERT AND ORIENTED TO SELF AND PLACE. OFFERS NO COMPLAINTS. AND DENIES PAIN. CALL LIGHT WITHIN REACH. WILL CONTINUE TO MONITOR
[2017-04-23 08:00] VITALS: BP 106/56
--- NOTE | 2017-04-23 09:18 | NUR ---
SITTING UP IN BED RESTING. OFFERS NO COMPLAINTS. ADMINISTERED MORNING MEDS WITHOUT DIFFICULTY. CALL LIGHT WITHIN REACH
--- NOTE | 2017-04-23 11:30 | NUR ---
SITTING UP IN BED VISITING WITH CAREGIVER. OFFERS NO COMPLAINTS. CALL LIGHT WITHIN REACH. WILL CONTINUE TO MONITOR
--- NOTE | 2017-04-23 14:25 | NUR ---
SITTING UP IN WHEELCHAIR WATCHING TV. OFFERS NO COMPLAINTS. CALL LIGHT WITHIN REACH. CONTINUES ON O2 ON 3L VIA NC. WILL CONTINUE TO MONITOR
--- NOTE | 2017-04-23 17:39 | NUR ---
SITTING UP IN BED EATING DINNER. CAREGIVER AT BEDSIDE. OFFERS NO COMPLAINTS DENIES PAIN. CALL LIGHT WITHIN REACH. WILL CONTINUE TO MONITOR
--- NOTE | 2017-04-23 18:11 | NUR ---
PT RESTING ,DENIES NEEDS. WCTM.
[2017-04-23 19:25] VITALS: BP 104/53
--- NOTE | 2017-04-23 19:39 | NUR ---
PT IS RESTING QUIETLY IN BED WITH EYES CLOSED. RESPS ARE EVEN AND UNLABORED. NO ACUTE DISTRESS NOTED. AWOKE EASILY TO VERBAL STIMULI. VSS. O2 IS ON @ 3LPM PER NC. SOTO CATH IS PATENT AND DRAINING TO A GRAVITY BAG. SCD'S ARE ON. SR'S ARE UP X 3 IN BED. CALL LIGHT AND BEDSIDE TABLE ARE WITHIN EASY REACH.
--- NOTE | 2017-04-23 19:41 | NUR ---
PT. IN BED WITH HOB UP FOR COMFORT WITH EYES CLOSED AND RESP. EVEN. SOTO TO BSD WITHOUT PROBLEMS AND SCD'S ARE ON AND WITHOUT ALARMS. CALL LIGHT WITHIN REACH.
--- NOTE | 2017-04-23 21:34 | NUR ---
PT IS RESTING IN BED WITH EYES CLOSED. NO ACUTE DISTRESS NOTED.
--- NOTE | 2017-04-24 00:01 | NUR ---
RESTING IN BED WITH EYES CLOSED.
--- NOTE | 2017-04-24 03:29 | NUR ---
RESTING IN BED WITH EYES CLOSED.
[2017-04-24 07:14] LABS: CALCIUM 8.3 mg/dL (8.5-10.1); CARBON DIOXIDE 34.4 mmol/L (21.0-32.0); CHLORIDE - SERUM 97 mmol/L (98-107); CREATININE - SERUM 0.5 mg/dL (0.6-1.3); POTASSIUM - SERUM 4.6 mmol/L (3.5-5.1); SODIUM 134 mmol/L (136-145); UREA NITROGEN 17 mg/dL (7-18); eGFR NON AFRICAN AMERICAN > 90 mL/min (90-120)
[2017-04-24 07:16] LABS: CALC OSMOLALITY 267 mosm/kg (275-300); GLUCOSE 54 mg/dL (74-106)
[2017-04-24 07:33] LABS: BASOPHILS 0 % (0-2); EOSINOPHILS 0.7 % (0-7); HEMATOCRIT 39.3 % (36.0-48.0); HEMOGLOBIN 12.8 g/dL (12-16); IMMATURE GRANULOCYTES 0.7 % (0-5); LYMPHOCYTES 18.1 % (15-50); MCH 29.4 pg (26.0-34.0); MCHC 32.6 g/dL (31.0-37.0); MCV 90.1 fL (80.0-100.0); MEAN PLATELET VOLUME 9.8 fL (7.4-10.4); MONOCYTES 11.2 % (2-11); NEUTROPHILS 69.3 % (40-80); PLATELET COUNT 257 10x3/uL (130-400); RBC 4.36 10x6/uL (4.00-5.40); RDW 14.4 % (11.5-14.5); WBC 10.8 10x3/uL (4.8-10.8)
[2017-04-24 08:00] VITALS: BP 132/65
--- NOTE | 2017-04-24 09:33 | NUR ---
PATIENT VERY CONFUSED. BIZZARE THINKING. PATIENT SITTING UP IN BED. BED ALARM ON. CALL LIGHT WITHIN REACH.
--- NOTE | 2017-04-24 10:19 | NUR ---
PATIENT ADMITTED TO REHAB FROM ACUTE FLOOR. DR. HOGAN IS PATIENT PCP, SEVERIANO ALMAGUER IS PATIENT PHARMCAY. DME AT HOME: BEDSIDE COMMODE, CANE, HOSPITAL BED, NEBULIZER, O2, ROLLING WALKER,SHOWER CHAIR, [employer] WHEELCHAIR. SHE HAS USED [facility] IN THE PAST AND SHE IS USING [facility]. DAUGHTER LAZ GONZALEZ IS PATIENT POA [phone]. WILL CONTINUE TO FOLLOW WITH PATIENT
--- NOTE | 2017-04-24 11:55 | NUR ---
GLUCOSE LEVEL 105. NO SLIDING SCALE INSULIN GIVEN
--- NOTE | 2017-04-24 15:07 | NUR ---
BLADDER TRAINING STARTED ON THIS PATIENT. BLADDER TRAINING EXPLAINED TO PATIENT BEFORE SOTO CATH WAS CLAMPED.
--- NOTE | 2017-04-24 19:00 | NUR ---
IN BED, AWAKE. DENIES NEEDS.
--- NOTE | 2017-04-24 19:00 | NUR ---
SITTING UP IN W/C AT BEDSIDE. DINNER TRAY STILL IN FRONT OF HER WITH MEAL PARTIALLY EATEN. ASKED HER IF SHE WAS FINISHED AND SHE SAID HSE WAS STILL EATING.
--- NOTE | 2017-04-24 21:00 | NUR ---
PATIENT WAS TRANSFERRED TO BED, AND CLEANED AND CHANGED FROM LARGE AMOUNT OF URINE. APPEARS PATIENT MAY HAVE KINKED HER SOTO CATHETER AND LEAKED A LOT OF URINE OUT AROUND IT. PATIENT WAS CLEANSED BY PRESIDENT/[employer]IENC[employer].
[2017-04-24 21:45] VITALS: BP 116/48
--- NOTE | 2017-04-24 23:45 | NUR ---
ASSESSMENT AND HS MEDS COMPLETE. FSBS 72. HELD LANTUS INSULIN. GAVE HER SNACK AND HAD FINAL DRESSING CUTTER SUPERVISE HER COMPLETION OF SNACK PATIENT DOES VERY POORLY AT STAYING ON TASK. EMPTIED 1350ML VLEAR LIGHT YELLOW URINE FROM HER SOTO DRAINAGE BAG AND CLAMPED HER LINE FOR BLADDER TRAINING.
--- NOTE | 2017-04-25 02:15 | NUR ---
IN BED, EYES CLOSED. RESTING IN APPARENT COMFORT.
--- NOTE | 2017-04-25 04:30 | NUR ---
IN BED, RESTING QUIETLY, EYES CLOSED. RESPIRATIONS UNLABORED.
--- NOTE | 2017-04-25 05:35 | NUR ---
FSBS 157. REFUSED SLIDING SCALE INSULIN. DENIES CURRENT NEEDS.
--- NOTE | 2017-04-25 08:24 | NUR ---
PT UP IN BED EATING BREAKFAST PT TALKING ABOUT ABEL CHILDRESS COMING LATER TODAY CALL LIGHT IN REACH NO DISTRESS NOTED
[2017-04-25 08:32] VITALS: BP 193/73
--- NOTE | 2017-04-25 13:43 | NUR ---
Nutrition Follow Up: Pt is eating 36% meal avg on a diabetic diet. +BM 04/22/17. Labs reviewed. Meds noted. Rec continue current diet. RD following.
--- NOTE | 2017-04-25 17:59 | NUR ---
PT RESTING IN BED WITH EYES OPEN CALL LIGHT IN REACH NO PROBLEMS WILL MONITER
--- NOTE | 2017-04-25 18:04 | NUR ---
PT RESTING IN BED WITH EYES OPEN CALL LIGHT IN REACH NO PROBLEMS WILL MONITER
--- NOTE | 2017-04-25 19:50 | NUR ---
PT STATES SHE IS HUNGRY, WANT TO EAT SOME SNACK, APPLE SAUCE AND GRAHAMS CRACKERS GIVEN.
[2017-04-25 20:04] VITALS: BP 167/80
--- NOTE | 2017-04-25 23:30 | NUR ---
PT C/O SHE HAD NOT EAT ANY SNACK. SNACK ALREADY PROVIDED A FEW HOURS AGO. TALKING TO CHARGE NURSE, CHARGE NURSE AGREE WILL NOT GIVING PT ANY SNACK AGAIN. DUE TO PT'S FSBS 254.
--- NOTE | 2017-04-25 23:45 | NUR ---
PATIENT VERY LOUDLY DEMANDING PUDDING AND FURTHER SNACK DESPITE THE FACT THAT PATIENT HAD A MID 200'S BLOOD SUGAR AT HS AND HAD ALREADY EATEN THE SNACK GIVEN TO HER. WHEN I REMINDED HER THAT SHE HAD ALREADY EATEN HER SNACK AND SHE IS ON A CONTROLLED ADA DIET PER MD ORDER, SHE BECAME VERY EMOTIONAL, VEHEMENTLY DENIED HAVING EATEN A BEDTIME SNACK AND IMPLIED WE WERE STARVING HER. HER NURSE RETRIEVED THE PACKAGING FROM HER SNACK AND SHOWED IT TO HER, BUT STILL SHE PERSEVERATED. THIS IS A COMMOD THEME WITH HER NIGHTLY, BUT I HAVE NOT WITNESSED SUCH DENIAL FROM HER BEFORE. AFTER GIVING HER A FEW MINUTES TO CALM DOWN I ANSWERED HER CALL AND GAVE HER A CUP OF COFFEE WITH 3 ARTIFICIAL SWEETENERS AND ABOUT 1 OZ 2% MILK IN IT AND THIS SEEMED TO SATISFY HER.
--- NOTE | 2017-04-26 03:14 | NUR ---
REST IN BED, EYE CLOSE, CALL LIGHT IN REACH.
[2017-04-26 06:17] LABS: BASOPHILS 0.1 % (0-2); EOSINOPHILS 0.2 % (0-7); HEMATOCRIT 46.6 % (36.0-48.0); HEMOGLOBIN 15.3 g/dL (12-16); IMMATURE GRANULOCYTES 0.8 % (0-5); LYMPHOCYTES 12.6 % (15-50); MCH 29.3 pg (26.0-34.0); MCHC 32.8 g/dL (31.0-37.0); MCV 89.3 fL (80.0-100.0); MEAN PLATELET VOLUME 9.6 fL (7.4-10.4); MONOCYTES 8.8 % (2-11); NEUTROPHILS 77.5 % (40-80); PLATELET COUNT 299 10x3/uL (130-400); RBC 5.22 10x6/uL (4.00-5.40); RDW 14.2 % (11.5-14.5); WBC 14.4 10x3/uL (4.8-10.8)
[2017-04-26 06:40] LABS: CALC OSMOLALITY 268 mosm/kg (275-300); CALCIUM 9.3 mg/dL (8.5-10.1); CARBON DIOXIDE 33.2 mmol/L (21.0-32.0); CHLORIDE - SERUM 93 mmol/L (98-107); CREATININE - SERUM 0.7 mg/dL (0.6-1.3); GLUCOSE 139 mg/dL (74-106); POTASSIUM - SERUM 4.5 mmol/L (3.5-5.1); SODIUM 133 mmol/L (136-145); UREA NITROGEN 15 mg/dL (7-18); eGFR NON AFRICAN AMERICAN 85 mL/min (90-120)
--- NOTE | 2017-04-26 07:30 | NUR ---
BLADDER TRAINING COMPLETED. SOTO CATH PULLED WITHOUT DIFFICULTY.
[2017-04-26 08:52] VITALS: BP 114/55
--- NOTE | 2017-04-26 09:56 | NUR ---
PATIENT IS VERY CONFUSED. CONTINUES TO TURN QUALITY CONTROL ANALYST LIGHT. STATES SHE WANTS HER MAKEUP ON BECAUSE SHE IS HAVING A DEMOCRAT WITH ABEL CIHLDRESS.
--- NOTE | 2017-04-26 12:31 | NUR ---
PATIENT INCONT OF BOWEL AND BLADDER. TOTAL ASST WITH SHARON CARE.
--- NOTE | 2017-04-26 13:41 | NUR ---
CAREGIVER TOOK PATIENT TO THE BATHROOM. CAREGIVER STATED THAT SHE LOST CONTROL OF THE PATIENT AND PATIENT SLIDE TO THE FLOOR. PATIENT ASST. BY THIS NURSE.NO INJURY NOTED. V/S WNL. DAUGHTER CALLED AND MEASSAGE LEFT. DR. Pia BIRD ON FLOOR FOR CARE PLAN MEETING.
--- NOTE | 2017-04-26 19:14 | NUR ---
DAUGHTER HAS NOT RETURNED CALL TO THIS NURSE. PATIENT DENIES ANY PAIN/DISC. VOICES NO NEEDS.
--- NOTE | 2017-04-26 19:30 | NUR ---
PT UP IN W/C. WATCHING TV. O2 @ 3L VIA N/C. NO IV. FBBS ACHS. BED/CHAIR ALARM. INCONTINET OF BOWEL AND BLADDER. CPAP @ NIGHT. CONFUSION. CALL LIGHT WITHIN REACH.
--- NOTE | 2017-04-26 20:00 | NUR ---
PT UP IN W/C. WATCHING TV. NO IV. O2 @ 3L VIA N/C. CONFUSED. INCONINENT. FSBS ACHS. BED/CHAIR ALARM. CPAP @ NIGHT. BED IN LOWEST POSITION AND CALLL LIGHT WITHIN REACH.
--- NOTE | 2017-04-26 20:44 | NUR ---
PT. SITTING UP IN W/C AND IS WATCHING TV. NO VOICED NEEDS AND SHE HAS HER CALL LIGHT WITHIN REACH.
[2017-04-26 22:59] VITALS: BP 134/60
--- NOTE | 2017-04-27 | NUR ---
PT LYING IN BED. EYES CLOSED. CHEST RISING AND FALLING. BED IN LOWEST POSITION AND CALLL LIGHT WITHIN REACH.
--- NOTE | 2017-04-27 01:47 | NUR ---
PT SITTING IN WHEELCHAIR AT BEDSIDE. ASSISTED PT TO THE BATHROOM AND CHANGED PTS WET CLOTHING. DENIES NEEDS AT THIS TIME WILL CONTINUE TO MONITOR
--- NOTE | 2017-04-27 05:45 | NUR ---
PT LYING IN BED. EYES CLOSED. RESP. EVEN. BED IN LOWEST POSITION AND CALL LIGHT WITHIN REACH.
--- NOTE | 2017-04-27 08:37 | NUR ---
PT RESTING IN BED WITH EYES OPEN CALL LIGHT IN REACH NO PROBLEMS WILL MONITER
--- NOTE | 2017-04-27 12:23 | NUR ---
EATING LUNCH. DENIES NEEDS OR C/O.
--- NOTE | 2017-04-27 14:56 | NUR ---
PT RESTING IN BED WITH EYES OPEN CALL LIGHT IN REACH WILL MONITER
[2017-04-27 19:58] VITALS: BP 112/60
--- NOTE | 2017-04-27 23:30 | NUR ---
PT LYING IN BED. EYES CLOSED. CHEST RISING AND FALLING. CPAP ON. BED ALARM ON. BED IN LOWEST POSITION AND CALL LIGHT WITHIN REACH.
--- NOTE | 2017-04-28 03:30 | NUR ---
PT IN BED WITH HOB UP FOR COMFORT. EYES CLOSED. RESPIRATIONS EVEN AND UNLABORED. BED IN LOWEST POSITION AND CALL LIGHT WITHIN REACH.
--- NOTE | 2017-04-28 04:42 | NUR ---
RESTING IN BED WITH EYES CLOSSED. NO S/S OF DISTRESS OBSERVED. BED ALARM IN PLACE AND FUNCTIONAL. BED IN LOW POSITION. CALL LIGHT AND OVERBED TABLE IN REACH.
--- NOTE | 2017-04-28 05:06 | NUR ---
PT REFUSING TO WEAR CPAP. O2 N/C PUT ON.
[2017-04-28 06:07] LABS: BASOPHILS 0.1 % (0-2); EOSINOPHILS 0.1 % (0-7); HEMATOCRIT 40.3 % (36.0-48.0); HEMOGLOBIN 13.2 g/dL (12-16); IMMATURE GRANULOCYTES 0.9 % (0-5); LYMPHOCYTES 11.4 % (15-50); MCHC 32.8 g/dL (31.0-37.0); MCV 88.6 fL (80.0-100.0); MEAN PLATELET VOLUME 9.7 fL (7.4-10.4); MONOCYTES 6.7 % (2-11); NEUTROPHILS 80.8 % (40-80); PLATELET COUNT 248 10x3/uL (130-400); RBC 4.55 10x6/uL (4.00-5.40); RDW 14.3 % (11.5-14.5); WBC 14.3 10x3/uL (4.8-10.8)
[2017-04-28 07:10] LABS: CALC OSMOLALITY 266 mosm/kg (275-300); CALCIUM 8.7 mg/dL (8.5-10.1); CARBON DIOXIDE 33.5 mmol/L (21.0-32.0); CHLORIDE - SERUM 95 mmol/L (98-107); CREATININE - SERUM 0.7 mg/dL (0.6-1.3); POTASSIUM - SERUM 4.5 mmol/L (3.5-5.1); SODIUM 133 mmol/L (136-145); UREA NITROGEN 17 mg/dL (7-18); eGFR NON AFRICAN AMERICAN 85 mL/min (90-120)
[2017-04-28 07:11] LABS: GLUCOSE 89 mg/dL (74-106)
[2017-04-28] MEDS ORDERED: ATIVAN0.5 MG PO (08:44)
[2017-04-28 09:02] VITALS: BP 123/62
--- NOTE | 2017-04-28 10:07 | NUR ---
PATIENT DISCHRGING HOME WITH CAREGIVER AND FAMILY. [facility] WILL RESUME CARE, [facility] WILL DELIVER A PORTABLE O2 . DR. HOGAN 05/24/17 @ 11:20. PATIENT CHOICE FORM FOR HOME HEALTH AND [facility] FORM SIGNED, EXPLAINED AND FILED IN CHART. ORDERS HAVE BEEN FAXED WITH CONFORMATION RECIEVED
--- NOTE | 2017-04-28 11:55 | NUR ---
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
== END 2017-04-28 14:44 | disposition home health service (06) | DRG 190 ==
LOC: D.REHAB 19:00
PROVIDERS: ADMIT Emergency Medicine
DX: J44.1 Chronic obstructive pulmonary disease with (acute) exacerbation (principal); I50.33 Acute on chronic diastolic (congestive) heart failure; J96.01 Acute respiratory failure with hypoxia; J96.22 Acute and chronic respiratory failure with hypercapnia; N39.0 Urinary tract infection, site not specified; Z99.81 Dependence on supplemental oxygen; R13.12 Dysphagia, oropharyngeal phase; G30.9 Alzheimer's disease, unspecified; F02.80 Dementia in other diseases classified elsewhere, unspecified severity, without behavioral disturbance, psychotic disturbance, mood disturbance, and anxiety; Z87.891 Personal history of nicotine dependence; Z86.718 Personal history of other venous thrombosis and embolism; I27.2 Other secondary pulmonary hypertension; M19.90 Unspecified osteoarthritis, unspecified site; R53.81 Other malaise; R60.9 Edema, unspecified; E11.65 Type 2 diabetes mellitus with hyperglycemia

== ENCOUNTER 2017-06-13 13:46 | Emergency (ER) | payer MEDICARE, OTHER ==
[2017-04-20 13:34] VITALS: BMI 26.1
[~2017-06-13 13:46] MED LIST changes: +ATIVAN0.5 MG PO
[2017-06-13 14:53] LABS: RBC 5.24 10x6/uL (4.00-5.40); WBC 18.8 10x3/uL (4.8-10.8)
[2017-06-13 14:54] LABS: BASOPHILS 0 % (0-2); EOSINOPHILS 0.1 % (0-7); HEMATOCRIT 49.8 % (36.0-48.0); IMMATURE GRANULOCYTES 0.4 % (0-5); LYMPHOCYTES 2.9 % (15-50); MCH 28.6 pg (26.0-34.0); MCHC 30.1 g/dL (31.0-37.0); MEAN PLATELET VOLUME 10.5 fL (7.4-10.4); MONOCYTES 2.7 % (2-11); NEUTROPHILS 93.9 % (40-80); RDW 16.7 % (11.5-14.5)
[2017-06-13 15:01] LABS: PLATELET COUNT 179 10x3/uL (130-400)
[2017-06-13 15:36] LABS: ANION GAP 10.9 mmol/L (8-16); BILIRUBIN - TOTAL 0.46 mg/dL (0.2-1.3); CALCIUM 9.2 mg/dL (8.5-10.1); CARBON DIOXIDE 33.8 mmol/L (21.0-32.0); POTASSIUM - SERUM 4.7 mmol/L (3.5-5.1); PROTEIN - SERUM 6.8 g/dL (6.4-8.2)
[2017-06-13 15:52] LABS: TROPONIN-I 0.06 ng/mL (0.000-0.060)
== END 2017-06-13 16:42 | disposition home or self-care (01) ==
LOC: D.ER 13:46
PROVIDERS: Emergency Medicine
DX: R06.00 Dyspnea, unspecified (principal); R41.82 Altered mental status, unspecified; L03.113 Cellulitis of right upper limb; I50.9 Heart failure, unspecified; F17.200 Nicotine dependence, unspecified, uncomplicated